=== PATIENT | male | born 1935 | race Caucasian/White ===

== ENCOUNTER 2020-04-03 13:00 | Outpatient (RCR) | payer MEDICARE, SELFPAY ==
--- NOTE | 2020-03-12 16:53 | ST.OPIE ---
Visit Care Team Role Provider Type Sam Patel MD Primary Care Provider Non-Staff Specialty: Medical Address: [address], [place], [address] Email: Mingo Torres MD Attending Provider Non-Staff Referring Provider Specialty: Neurology Address: [address], [place], [address] Email: Speech-Language Pathology Initial Evaluation EXECUTIVE ASSISTANT Voice Resonance Evaluation Start: 03/05/20 14:03 Freq: Status: Active Protocol: Document 03/05/20 15:27 AROLDO (Rec: 03/05/20 16:29 [email or web address]) Voice and Resonance Assessment Session Time Visit Start Time 15:30 Visit Stop Time 16:35 Total Visit Minutes 65 Visit Information Visit Number Initial Evaluation Plan of Care Dates 03/05/20 - 05/29/20 Insurance Information Medicare Next Note Type Next Note Type Treatment Note Referral Referring Physician Dr. Mingo Torres Reason for Referral LSVT-Loud therapy for Parkinson's disease Setting Setting Outpatient Care Patient History General Information The pt is an 84-yr-old male who was diagnosed with Parkinson's disease 2-3 yrs ago, with tremors occurring ~2 yrs before. 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 Friends have expressed difficulty hearing him in face -to-face conversation, as well as on the phone. The pt also reported occasional difficulty swallowing, experiencing closing up of his airway. Had experience that spicy foods and tannins in wine, for example, close up my airway. Also coughing with water and solids. Needs to drink small amounts at a time. Hearing Hearing Level Impaired Auditory History Left worse than right Vision Vision Status Not Impaired Comments Uses reading glasses [place] Langauge Language(s) Spoken in the Home Chinese Educational Status Education Level Master's degree Occupational Status Occupation Status Retired Previous Therapy Previous Speech-Language Therapy No Subjective Subjective The pt arrived on time and provided case history. He had questions about the LSVT-Loud and Big programs, which were addressed. - Laryngeal Performance Voice Handicap Index Function Subtotal 8 WFL Physical Subtotal 14 WFL/Mild Emotional Subtotal 8 Mild Total Score 30 Severity Mild (0-30) CAPE-V Overall Severity 65% Moderate-Severe Roughness 34% Mild-Moderate Breathiness 71% Severe Strain 27% Mild-Moderate Pitch 24% Mild (reduced range, mildly monotone) Loudness 53% Moderate (reduced) Normal Resonance? Yes Other Features Observed Significant reduction of breathiness and roughness w/ increased loudness Maximum Phonation Time MPT Norms: Women (15-25) Men (25-35) Loudness (50-60 dB); Speaking Rate: Oral Reading of Sentences (190 Words Per Minute); Oral Reading of Paragraphs (160-170 WPM); Speaking Rate in Conversation (150-250 WPM) Maximum Phonation Time 10.8 Maximum Phonation Time Adequate for Speech Jitter/Shimmer Norms: Jitter (Less than or equal to 1.040% - Frequency) Norms: Shimmer (Less than or equal to 3.810% - Amplitude) Jitter 0.13 WNL Shimmer 1.36 WNL Pitch [place] Pitch [place] WFL,Reduced Range Pitch [place] Comments 111-288 Hz Breath Support Speaks on Room Air Yes Voice Pitch Range Norms: Women (100-300 Hz) Men (70-250 Hz) Fundamental Frequency Norms: Women (Mean: 225 Hz; Range: 155-334 Hz) Men ( Mean: 128 Hz; Range: 85-196 Hz) Voice Pitch Normal Voice Loudness Moderately Soft/Quiet Voice Phonatory-based Quality Breathy,Harsh,Weak Fundamental Frequency 140 Hz Intensity Avg 65 dB in conversation ( Range: 59-71 dB) Paradoxical Vocal Fold Movement No Indications Resonance Nasal Resonance Normal Oral Resonance Normal Therapeutic Techniques Therapy Tactics Increase Loudness Findings Findings Moderate Impairment Observations The pt presents with moderate voice impairment secondary to Parkinson's disease and characterized by reduced vocal loudness and rough, breathy quality. Quality improved significantly with increased loudness, making this patient highly stimulable and appropriate for LSVT-Loud therapy. The pt also expressed occasional difficulty with swallowing, such as coughing with liquids and solids. He completed the EAT-10 questionnaire, scoring 5 points, which represents mild impairment. Based on research, it is anticipated that the pt 's swallow function will improve as a result of LSVT- Loud treatment. Will monitor swallow safety over the course of therapy. Prognosis Rehabilitation Potential Excellent - Recommendations Treatment Recommended Yes: LSVT-Loud Treatment Frequency/Duration 16 sessions in 4 wks Placement Recommendation Home Therapy Recommendations LSVT-Loud treatment targeting increased vocal loudness and improved speech intelligibility. Swallow function/safety may also be addressed in therapy. Short Term Goals 1. Pt will sustain vowel phonation for 15 sec at 75 dB or greater across 3 trials to increase breath support for speech and improve vocal quality/stability. 2. Pt perform pitch glide exercises at avg of 65 dB or greater with min cues to increase pitch range and vocal stability at various pitches. 3. Pt will read Functional Phrases at avg of 70 dB or greater across 10 trials to increase speech intelligibility and promote carryover of vocal loudness into his functional environment. 4. Pt will read words/phrases with avg of 70 dB or greater with 90% accuracy and min cues to increase speech intelligibility. 5. Pt will maintain loudness levels between 60-65 dB in off -the-cuff remarks between structured tasks with min cues to increase speech intelligibility and promote carryover of adequate loudness in spontaneous conversation. Tromper Goals 1. Pt will sustain vowel phonation for 20 sec at 75 dB or greater to increase/ maintain breath support for speech and vocal loudness. 2.Pt will produce prosodic features WFL in spontaneous conversation in 80% of opportunities to increase her ability to communicate ideas, opinions, and wants/needs. 3. Pt will produce vocal loudness in conversation WNL ( 65-75 dB) in 80% of opportunities to increase speech intelligibility in a variety of settings and with a variety of conversation partners. 4. Pt will report voice WFL as measured by VHI (total score of patient perceptual rating). 5. Pt will exhibit vocal quality WNL as measured by CAPE-V (clinician perceptual rating). Patient/Caregiver Education Patient/Family Education Described results of evaluation,Patient Understanding
--- NOTE | 2020-03-12 17:26 | ST.OPTN ---
Visit Care Team Role Provider Type Sam Patel MD Primary Care Provider Non-Staff Address: [address], [place], [address] Mingo Torres MD Attending Provider Non-Staff Referring Provider Address: [address], [place], [address] ORCHID GROWER Treatment Note ORCHID GROWER Treatment Note Start: 03/05/20 14:03 Freq: Status: Active Protocol: Document 03/11/20 17:45 AROLDO (Rec: 03/11/20 17:45 AROLDO [email or web address]) Speech Pathology Treatment Note Session Time Visit Start Time 15:30 Visit Stop Time 16:30 Total Visit Minutes 60 Visit Information Visit Number 2 Plan of Care Dates 03/05/20 - 05/29/20 General Information General Information The pt is an 84-yr-old male who was diagnosed with Parkinson's disease 2-3 yrs ago, with tremors occurring ~2 yrs before. 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 Friends have expressed difficulty hearing him in face -to-face conversation, as well as on the phone. The pt also reported occasional difficulty swallowing, experiencing closing up of his airway. Had experience that spicy foods and tannins in wine, for example, close up my airway. Also coughing with water and solids. Needs to drink small amounts at a time. Objective Short Term Goals 1. Pt will sustain vowel phonation for 15 sec at 75 dB or greater across 3 trials to increase breath support for speech and improve vocal quality/stability. 2. Pt perform pitch glide exercises at avg of 65 dB or greater with min cues to increase pitch range and vocal stability at various pitches. 3. Pt will read Functional Phrases at avg of 70 dB or greater across 10 trials to increase speech intelligibility and promote carryover of vocal loudness into his functional environment. 4. Pt will read words/phrases with avg of 70 dB or greater with 90% accuracy and min cues to increase speech intelligibility. 5. Pt will maintain loudness levels between 60-65 dB in off -the-cuff remarks between structured tasks with min cues to increase speech intelligibility and promote carryover of adequate loudness in spontaneous conversation. Hot Car Operator Goals 1. Pt will sustain vowel phonation for 20 sec at 75 dB or greater to increase/ maintain breath support for speech and vocal loudness. 2.Pt will produce prosodic features WFL in spontaneous conversation in 80% of opportunities to increase her ability to communicate ideas, opinions, and wants/needs. 3. Pt will produce vocal loudness in conversation WNL ( 65-75 dB) in 80% of opportunities to increase speech intelligibility in a variety of settings and with a variety of conversation partners. 4. Pt will report voice WFL as measured by VHI (total score of patient perceptual rating). 5. Pt will exhibit vocal quality WNL as measured by CAPE-V (clinician perceptual rating).
--- NOTE | 2020-03-12 17:31 | ST.OPTN ---
Visit Care Team Role Provider Type Sam Patel MD Primary Care Provider Non-Staff Address: [address], [place], [address] Mingo Torres MD Attending Provider Non-Staff Referring Provider Address: [address], [place], [address] RRTS Treatment Note RRTS Treatment Note Start: 03/05/20 14:03 Freq: Status: Active Protocol: Document 03/11/20 17:45 AROLDO (Rec: 03/11/20 17:45 AROLDO [email or web address]) Speech Pathology Treatment Note Session Time Visit Start Time 15:30 Visit Stop Time 16:30 Total Visit Minutes 60 Visit Information Visit Number 2 Plan of Care Dates 03/05/20 - 05/29/20 Insurance Information Medicare Setting Treatment Setting Outpatient Care Visit Type Note Type Treatment Note Next Note Type Next Note Type Treatment Note General Information General Information The pt is an 84-yr-old male who was diagnosed with Parkinson's disease 2-3 yrs ago, with tremors occurring ~2 yrs before. 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 Friends have expressed difficulty hearing him in face -to-face conversation, as well as on the phone. The pt also reported occasional difficulty swallowing, experiencing closing up of his airway. Had experience that spicy foods and tannins in wine, for example, close up my airway. Also coughing with water and solids. Needs to drink small amounts at a time. Subjective Observations/Patient Presentation Pt arrived on time. Completed home exercises this morning without difficulty. No new complaints. Chief Complaint(s) Voice Additional Areas of Concern Mild dysphagia symptoms Rehab Expectation/Goals: Patient Goals To be as good as I can be Patient Knowledge/Awareness of RRTS Role Excellent in Treatment Patient/Caregiver Compliance with Home Excellent Exercise Program Objective Short Term Goals 1. Pt will sustain vowel phonation for 15 sec at 75 dB or greater across 3 trials to increase breath support for speech and improve vocal quality/stability. 2. Pt perform pitch glide exercises at avg of 65 dB or greater with min cues to increase pitch range and vocal stability at various pitches. 3. Pt will read Functional Phrases at avg of 70 dB or greater across 10 trials to increase speech intelligibility and promote carryover of vocal loudness into his functional environment. 4. Pt will read words/phrases with avg of 70 dB or greater with 90% accuracy and min cues to increase speech intelligibility. 5. Pt will maintain loudness levels between 60-65 dB in off -the-cuff remarks between structured tasks with min cues to increase speech intelligibility and promote carryover of adequate loudness in spontaneous conversation. Admitting Representative Goals 1. Pt will sustain vowel phonation for 20 sec at 75 dB or greater to increase/ maintain breath support for speech and vocal loudness. 2.Pt will produce prosodic features WFL in spontaneous conversation in 80% of opportunities to increase her ability to communicate ideas, opinions, and wants/needs. 3. Pt will produce vocal loudness in conversation WNL ( 65-75 dB) in 80% of opportunities to increase speech intelligibility in a variety of settings and with a variety of conversation partners. 4. Pt will report voice WFL as measured by VHI (total score of patient perceptual rating). 5. Pt will exhibit vocal quality WNL as measured by CAPE-V (clinician perceptual rating). Treatment Activities The pt completed the following LSVT-Loud exercises: Max Phonation Time: 11.72 sec; Avg Loudness: 79.7 dB Highs & Lows: 121-374 Hz; Avg Loudness: Highs 79.2 dB, Lows 76.8 dB Functional Phrases: Avg Loudness 69.3 dB Words/Phrases: Avg Loudness 71 .5 dB Conversation: Avg Loudness 65. 7 dB, range = 63-67 dB, mod v/ v cues Skilled education and feedback was provided throughout, often with use of graphic representation of vocal loudness levels, which served also as beneficial biofeedback . Assessment Patient Response to Treatment Excellent Rehab Potential Excellent Impairments Identified Parkinson's Disease,Speech Intelligibility,Vocal Quality Additional Impairments Identified Mild dysphagia Progress Towards Goals Good Progress Assessment of Overall Progress Improving Assessment of Improvement The pt demonstrated good understanding of tx tasks and required little cuing during structured tasks to meet target loudness levels. Loudness decreased significantly during spontaneous speech. Pt was responsive to v/v prompts to increase loudness with limited carryover from one spontaneous exchange to another. Significant difference in vocal quality is perceived with loudness levels between less and greater than ~67 dB, with improved richness of voice and reduced breathiness at levels >67 dB. Reviewed with Patient Goals,Progress Being Made,Home Exercise Program Patient/Caregiver Understanding Excellent Plan Therapeutic Contents Client Education,Home Exercise Program,Intelligibility,Voice Training Additional Areas of Treatment Education related to swallow function/safety Provided Patient/Caregiver Instruction Home Exercise Program,Plan of Care,Questions/Concerns,Other Therapy Recommendations Continue with Current Program
--- NOTE | 2020-03-12 17:37 | ST.OPTN ---
Visit Care Team Role Provider Type Sam Patel MD Primary Care Provider Non-Staff Address: [address], [place], [address] Mingo Torres MD Attending Provider Non-Staff Referring Provider Address: [address], [place], [address] SHIPPING ROOM SUPERVISOR Treatment Note SHIPPING ROOM SUPERVISOR Treatment Note Start: 03/05/20 14:03 Freq: Status: Active Protocol: Document 03/12/20 17:32 AROLDO (Rec: 03/12/20 17:37 AROLDO [email or web address]) Speech Pathology Treatment Note Session Time Visit Start Time 15:30 Visit Stop Time 16:30 Total Visit Minutes 60 Visit Information Visit Number 3 Plan of Care Dates 03/05/20 - 05/29/20 Insurance Information Medicare Setting Treatment Setting Outpatient Care Visit Type Note Type Treatment Note Next Note Type Next Note Type Treatment Note General Information General Information The pt is an 84-yr-old male who was diagnosed with Parkinson's disease 2-3 yrs ago, with tremors occurring ~2 yrs before. 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 Friends have expressed difficulty hearing him in face -to-face conversation, as well as on the phone. The pt also reported occasional difficulty swallowing, experiencing closing up of his airway. Had experience that spicy foods and tannins in wine, for example, close up my airway. Also coughing with water and solids. Needs to drink small amounts at a time. Subjective Observations/Patient Presentation Pt arrived on time. Completed home exercises this morning with difficulty maintaining clear voice with lower pitches . No other complaints. Chief Complaint(s) Voice Additional Areas of Concern Mild dysphagia symptoms Rehab Expectation/Goals: Patient Goals To be as good as I can be Patient Knowledge/Awareness of SHIPPING ROOM SUPERVISOR Role Excellent in Treatment Patient/Caregiver Compliance with Home Excellent Exercise Program Objective Short Term Goals 1. Pt will sustain vowel phonation for 15 sec at 75 dB or greater across 3 trials to increase breath support for speech and improve vocal quality/stability. 2. Pt perform pitch glide exercises at avg of 65 dB or greater with min cues to increase pitch range and vocal stability at various pitches. 3. Pt will read Functional Phrases at avg of 70 dB or greater across 10 trials to increase speech intelligibility and promote carryover of vocal loudness into his functional environment. 4. Pt will read words/phrases with avg of 70 dB or greater with 90% accuracy and min cues to increase speech intelligibility. 5. Pt will maintain loudness levels between 60-65 dB in off -the-cuff remarks between structured tasks with min cues to increase speech intelligibility and promote carryover of adequate loudness in spontaneous conversation. Stone Setter Apprentice Goals 1. Pt will sustain vowel phonation for 20 sec at 75 dB or greater to increase/ maintain breath support for speech and vocal loudness. 2.Pt will produce prosodic features WFL in spontaneous conversation in 80% of opportunities to increase her ability to communicate ideas, opinions, and wants/needs. 3. Pt will produce vocal loudness in conversation WNL ( 65-75 dB) in 80% of opportunities to increase speech intelligibility in a variety of settings and with a variety of conversation partners. 4. Pt will report voice WFL as measured by VHI (total score of patient perceptual rating). 5. Pt will exhibit vocal quality WNL as measured by CAPE-V (clinician perceptual rating). Treatment Activities The pt completed the following LSVT-Loud exercises: Max Phonation Time: 13.6 sec; Avg Loudness: 77.9 dB Highs & Lows: 87-375 Hz; Avg Loudness: Highs 77.4 dB, Lows 75.8 dB Functional Phrases: Avg Loudness 70 dB Words/Phrases: Avg Loudness 71 dB Conversation: Avg Loudness 66. 5 dB, range = 65-68 dB, mod- max v/v cues Skilled education and feedback was provided throughout, often with use of graphic representation of vocal loudness levels, which served also as beneficial biofeedback . Playback of voice recordings including reading of functional phrases and spontaneous conversation was provided. The pt expressed surprise at the difference in intelligibility and vocal quality. He described his voice during reading task as the voice I think I have and have always had and his voice in conversation as someone I don't know. He was encouraged by feedback in relation to goals and POC. Assessment Patient Response to Treatment Excellent Rehab Potential Excellent Impairments Identified Parkinson's Disease,Speech Intelligibility,Vocal Quality Additional Impairments Identified Mild dysphagia Progress Towards Goals Good Progress Assessment of Overall Progress Improving Assessment of Improvement Mildly improved MPT and vocal loudness in conversation. The pt expressed being inspired by audio playback of his voice. He is following through on HEP tasks well, including carryover assignments. Reviewed with Patient Goals,Progress Being Made,Home Exercise Program Patient/Caregiver Understanding Excellent Plan Frequency of Treatment Four Times a Week Length of Session 60 Minutes Therapeutic Contents Client Education,Home Exercise Program,Intelligibility,Voice Training Additional Areas of Treatment Education related to swallow function/safety Provided Patient/Caregiver Instruction Home Exercise Program,Plan of Care,Questions/Concerns,Other Therapy Recommendations Continue with Current Program
--- NOTE | 2020-03-13 14:17 | ST.OPTN ---
Visit Care Team Role Provider Type Sam Patel MD Primary Care Provider Non-Staff Address: [address], [place], [address] Mingo Torres MD Attending Provider Non-Staff Referring Provider Address: [address], [place], [address] CRM MARKETING EXECUTIVE Treatment Note CRM MARKETING EXECUTIVE Treatment Note Start: 03/05/20 14:03 Freq: Status: Active Protocol: Document 03/13/20 14:08 AROLDO (Rec: 03/13/20 14:17 AROLDO [email or web address]) Speech Pathology Treatment Note Session Time Visit Start Time 13:00 Visit Stop Time 14:00 Total Visit Minutes 60 Visit Information Visit Number 4 Plan of Care Dates 03/05/20 - 05/29/20 Insurance Information Medicare Setting Treatment Setting Outpatient Care Visit Type Note Type Treatment Note Next Note Type Next Note Type Treatment Note General Information General Information The pt is an 84-yr-old male who was diagnosed with Parkinson's disease 2-3 yrs ago, with tremors occurring ~2 yrs before. 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 Friends have expressed difficulty hearing him in face -to-face conversation, as well as on the phone. The pt also reported occasional difficulty swallowing, experiencing closing up of his airway. Had experience that spicy foods and tannins in wine, for example, close up my airway. Also coughing with water and solids. Needs to drink small amounts at a time. Subjective Observations/Patient Presentation Pt arrived on time. Completed home exercises this morning with continued difficulty maintaining clear voice with lower pitches. No other complaints. Reported completing carryover tasks. Chief Complaint(s) Voice Additional Areas of Concern Mild dysphagia symptoms Rehab Expectation/Goals: Patient Goals To be as good as I can be Patient Knowledge/Awareness of CRM MARKETING EXECUTIVE Role Excellent in Treatment Patient/Caregiver Compliance with Home Excellent Exercise Program Objective Short Term Goals 1. Pt will sustain vowel phonation for 15 sec at 75 dB or greater across 3 trials to increase breath support for speech and improve vocal quality/stability. 2. Pt perform pitch glide exercises at avg of 65 dB or greater with min cues to increase pitch range and vocal stability at various pitches. 3. Pt will read Functional Phrases at avg of 70 dB or greater across 10 trials to increase speech intelligibility and promote carryover of vocal loudness into his functional environment. 4. Pt will read words/phrases with avg of 70 dB or greater with 90% accuracy and min cues to increase speech intelligibility. 5. Pt will maintain loudness levels between 60-65 dB in off -the-cuff remarks between structured tasks with min cues to increase speech intelligibility and promote carryover of adequate loudness in spontaneous conversation. Technical Report Writer Goals 1. Pt will sustain vowel phonation for 20 sec at 75 dB or greater to increase/ maintain breath support for speech and vocal loudness. 2.Pt will produce prosodic features WFL in spontaneous conversation in 80% of opportunities to increase her ability to communicate ideas, opinions, and wants/needs. 3. Pt will produce vocal loudness in conversation WNL ( 65-75 dB) in 80% of opportunities to increase speech intelligibility in a variety of settings and with a variety of conversation partners. 4. Pt will report voice WFL as measured by VHI (total score of patient perceptual rating). 5. Pt will exhibit vocal quality WNL as measured by CAPE-V (clinician perceptual rating). Treatment Activities The pt completed the following LSVT-Loud exercises: Max Phonation Time: 11.56 sec; Avg Loudness: 81.8 dB Highs & Lows: 112-379 Hz; Avg Loudness: Highs 83.7 dB, Lows 73.5 dB Functional Phrases: Avg Loudness 71.7 dB Words/Phrases: Reading phrases as written with avg loudness 71.7 dB; Cognitive task of reordering and reading lists of 3-4 items in correct sequence, with avg loudness 73 .3 dB Conversation: Avg Loudness 68. 8 dB, range = 66-73 dB, min v/ v cues Skilled education and feedback was provided throughout, often with use of graphic representation of vocal loudness levels, which served also as beneficial biofeedback . Pt demonstrated increased loudness with [id number] remarks with mod verbal prompts initially provided, fading to min visual cues. Assessment Patient Response to Treatment Excellent Rehab Potential Excellent Impairments Identified Parkinson's Disease,Speech Intelligibility,Vocal Quality Additional Impairments Identified Mild dysphagia Progress Towards Goals Excellent Progress,Good Progress Assessment of Overall Progress Improving Assessment of Improvement Generally improved loudness demonstrated across most tasks . The pt demonstrated good improvement in maintaining loudness levels in spontaneous conversation, including off- the-cuff remarks. He commented that he often was doing so without thinking about it, demonstrating initial stages of habitualization of target levels. The pt was encouraged about this. Reviewed with Patient Goals,Progress Being Made,Home Exercise Program Patient/Caregiver Understanding Excellent Plan Frequency of Treatment Four Times a Week Length of Session 60 Minutes Therapeutic Contents Client Education,Home Exercise Program,Intelligibility,Voice Training Additional Areas of Treatment Education related to swallow function/safety Provided Patient/Caregiver Instruction Home Exercise Program,Plan of Care,Questions/Concerns,Other Therapy Recommendations Continue with Current Program
--- NOTE | 2020-03-17 16:52 | ST.OPTN ---
Visit Care Team Role Provider Type Sam Patel MD Primary Care Provider Non-Staff Address: [address], [place], [address] Mingo Torres MD Attending Provider Non-Staff Referring Provider Address: [address], [place], [address] [facility] Treatment Note [facility] Treatment Note Start: 03/05/20 14:03 Freq: Status: Active Protocol: Document 03/17/20 16:43 AROLDO (Rec: 03/17/20 16:52 AROLDO [id number]) Speech Pathology Treatment Note Session Time Visit Start Time 15:30 Visit Stop Time 16:30 Total Visit Minutes 60 Visit Information Visit Number 5 Plan of Care Dates 03/05/20 - 05/29/20 Insurance Information Medicare Setting Treatment Setting Outpatient Care Visit Type Note Type Treatment Note Next Note Type Next Note Type Treatment Note General Information General Information The pt is an 84-yr-old male who was diagnosed with Parkinson's disease 2-3 yrs ago, with tremors occurring ~2 yrs before. 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 Friends have expressed difficulty hearing him in face -to-face conversation, as well as on the phone. The pt also reported occasional difficulty swallowing, experiencing closing up of his airway. Had experience that spicy foods and tannins in wine, for example, close up my airway. Also coughing with water and solids. Needs to drink small amounts at a time. Subjective Observations/Patient Presentation Pt arrived on time. Completed home exercises this morning with continued difficulty maintaining clear voice with lower pitches. No other complaints. Reported communicating effectively with visitors over weekend. Chief Complaint(s) Voice Additional Areas of Concern Mild dysphagia symptoms Rehab Expectation/Goals: Patient Goals To be as good as I can be Patient Knowledge/Awareness of [facility] Role Excellent in Treatment Patient/Caregiver Compliance with Home Excellent Exercise Program Objective Short Term Goals 1. Pt will sustain vowel phonation for 15 sec at 75 dB or greater across 3 trials to increase breath support for speech and improve vocal quality/stability. 2. Pt perform pitch glide exercises at avg of 65 dB or greater with min cues to increase pitch range and vocal stability at various pitches. 3. Pt will read Functional Phrases at avg of 70 dB or greater across 10 trials to increase speech intelligibility and promote carryover of vocal loudness into his functional environment. 4. Pt will read words/phrases with avg of 70 dB or greater with 90% accuracy and min cues to increase speech intelligibility. 5. Pt will maintain loudness levels between 60-65 dB in off -the-cuff remarks between structured tasks with min cues to increase speech intelligibility and promote carryover of adequate loudness in spontaneous conversation. 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 Pt will sustain vowel phonation for 20 sec at 75 dB or greater to increase/ maintain breath support for speech and vocal loudness. 2.Pt will produce prosodic features WFL in spontaneous conversation in 80% of opportunities to increase her ability to communicate ideas, opinions, and wants/needs. 3. Pt will produce vocal loudness in conversation WNL ( 65-75 dB) in 80% of opportunities to increase speech intelligibility in a variety of settings and with a variety of conversation partners. 4. Pt will report voice WFL as measured by VHI (total score of patient perceptual rating). 5. Pt will exhibit vocal quality WNL as measured by CAPE-V (clinician perceptual rating). Treatment Activities The pt completed the following LSVT-Loud exercises: Max Phonation Time: 13.5 sec; Avg Loudness: 77.9 dB Highs & Lows: 105-332 Hz; Avg Loudness: Highs 78 dB, Lows 72 dB Functional Phrases: Avg Loudness 72 dB Sentences: Pt completed reading/cognitive speaking task by completing analogies ( avg 67.5 dB) and reading proverbs and explaining their meanings (avg 71 dB). Occasional replay of voice recording was provided for feedback. Pt correctly observed mild decline in vocal loudness in spontaneous speech vs reading text. Feedback provided RE normalcy of increased loudness with reading (performance voice) vs natural speech. Minimal difference between loudness in the tasks was observed, demonstrating excellent self- monitoring. Conversation: Avg Loudness 64. 5 dB, range = 64-65 dB, min v/ v cues Skilled education and feedback was provided throughout, often with use of graphic representation of vocal loudness levels, which served also as beneficial biofeedback . Pt was required and was responsive to v/v prompts to maintain target loudness with [id number] remarks. Assessment Patient Response to Treatment Excellent Rehab Potential Excellent Impairments Identified Parkinson's Disease,Speech Intelligibility,Vocal Quality Additional Impairments Identified Mild dysphagia Progress Towards Goals Excellent Progress,Good Progress Assessment of Overall Progress Improving Assessment of Improvement Mild decrease in average loudness across several tasks and conversation today. However, the pt was responsive to v/v prompts to maintain loudness with spontaneous speech, both in structured tasks and conversation. He did exhibit excellent self- monitoring while completing proverb reading/explaining task. Improved pitch range observed with increased consistency in producing lower pitches with good voicing. Reviewed with Patient Goals,Progress Being Made,Home Exercise Program Patient/Caregiver Understanding Excellent Plan Frequency of Treatment Four Times a Week Length of Session 60 Minutes Therapeutic Contents Client Education,Home Exercise Program,Intelligibility,Voice Training Additional Areas of Treatment Education related to swallow function/safety Provided Patient/Caregiver Instruction Home Exercise Program,Plan of Care,Questions/Concerns,Other Therapy Recommendations Continue with Current Program
--- NOTE | 2020-03-18 16:59 | ST.OPTN ---
Visit Care Team Role Provider Type Sam Patel MD Primary Care Provider Non-Staff Address: [address], [place], [address] Mingo Torres MD Attending Provider Non-Staff Referring Provider Address: [address], [place], [address] BIT [facility]APPER Treatment Note [facility]PER Treatment Note Start: 03/05/20 14:03 Freq: Status: Active Protocol: Document 03/18/20 16:52 AROLDO (Rec: 03/18/20 16:59 AROLDO [email or web address]) Speech Pathology Treatment Note Session Time Visit Start Time 15:30 Visit Stop Time 16:30 Total Visit Minutes 60 Visit Information Visit Number 6 Plan of Care Dates 03/05/20 - 05/29/20 Insurance Information Medicare Setting Treatment Setting Outpatient Care Visit Type Note Type Treatment Note Next Note Type Next Note Type Treatment Note General Information General Information The pt is an 84-yr-old male who was diagnosed with Parkinson's disease 2-3 yrs ago, with tremors occurring ~2 yrs before. 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 Friends have expressed difficulty hearing him in face -to-face conversation, as well as on the phone. The pt also reported occasional difficulty swallowing, experiencing closing up of his airway. Had experience that spicy foods and tannins in wine, for example, close up my airway. Also coughing with water and solids. Needs to drink small amounts at a time. Subjective Observations/Patient Presentation Pt arrived on time. Completed home exercises this morning with improved ability to maintain clear voice with lower pitches. No new complaints. Chief Complaint(s) Voice Additional Areas of Concern Mild dysphagia symptoms Rehab Expectation/Goals: Patient Goals To be as good as I can be Patient Knowledge/Awareness of BIT TAPPER Role Excellent in Treatment Patient/Caregiver Compliance with Home Excellent Exercise Program Objective Short Term Goals 1. Pt will sustain vowel phonation for 15 sec at 75 dB or greater across 3 trials to increase breath support for speech and improve vocal quality/stability. 2. Pt perform pitch glide exercises at avg of 65 dB or greater with min cues to increase pitch range and vocal stability at various pitches. 3. Pt will read Functional Phrases at avg of 70 dB or greater across 10 trials to increase speech intelligibility and promote carryover of vocal loudness into his functional environment. 4. Pt will read words/phrases with avg of 70 dB or greater with 90% accuracy and min cues to increase speech intelligibility. 5. Pt will maintain loudness levels between 60-65 dB in off -the-cuff remarks between structured tasks with min cues to increase speech intelligibility and promote carryover of adequate loudness in spontaneous conversation. Care Home Goals 1. Pt will sustain vowel phonation for 20 sec at 75 dB or greater to increase/ maintain breath support for speech and vocal loudness. 2.Pt will produce prosodic features WFL in spontaneous conversation in 80% of opportunities to increase her ability to communicate ideas, opinions, and wants/needs. 3. Pt will produce vocal loudness in conversation WNL ( 65-75 dB) in 80% of opportunities to increase speech intelligibility in a variety of settings and with a variety of conversation partners. 4. Pt will report voice WFL as measured by VHI (total score of patient perceptual rating). 5. Pt will exhibit vocal quality WNL as measured by CAPE-V (clinician perceptual rating). Treatment Activities The pt completed the following LSVT-Loud exercises: Max Phonation Time: 15.3 sec; Avg Loudness: 81.8 dB Highs & Lows: 108-341 Hz; Avg Loudness: Highs 79.5 dB, Lows 73.5 dB Functional Phrases: Avg Loudness 71 dB Sentences: Pt completed reading/cognitive speaking task by reading proverbs and explaining their meanings with avg 71 dB. Conversation: Avg Loudness 66. 4 dB, range = 64-73 dB, mod v/ v cues Skilled education and feedback was provided throughout, often with use of graphic representation of vocal loudness levels, which served also as beneficial biofeedback . Pt was required and was responsive to v/v prompts to maintain target loudness with [id number] remarks. Assessment Patient Response to Treatment Excellent Rehab Potential Excellent Impairments Identified Parkinson's Disease,Speech Intelligibility,Vocal Quality Additional Impairments Identified Mild dysphagia Progress Towards Goals Excellent Progress,Good Progress Assessment of Overall Progress Improving Assessment of Improvement Pt demonstrates slow but steady increases in average loudness levels across most tasks and increasing long duration of sustained phonation. Pitch range is expanding as well, with the pt maintaining clear vocal quality at lower pitch levels. Making excellent progress toward goals. No evidence of vocal fatigue even with extensive (10 min) of conversation in which the pt did most of the talking. He reports feeling that he is making progress and being encouraged by that. Reviewed with Patient Goals,Progress Being Made,Home Exercise Program Patient/Caregiver Understanding Excellent Plan Frequency of Treatment Four Times a Week Length of Session 60 Minutes Therapeutic Contents Client Education,Home Exercise Program,Intelligibility,Voice Training Additional Areas of Treatment Education related to swallow function/safety Provided Patient/Caregiver Instruction Home Exercise Program,Plan of Care,Questions/Concerns,Other Therapy Recommendations Continue with Current Program
--- NOTE | 2020-03-19 17:17 | ST.OPTN ---
Visit Care Team Role Provider Type Sam Patel MD Primary Care Provider Non-Staff Address: [address], [place], [address] Mingo Torres MD Attending Provider Non-Staff Referring Provider Address: [address], [place], [address] FENCE POST DRIVER Treatment Note FENCE POST DRIVER Treatment Note Start: 03/05/20 14:03 Freq: Status: Active Protocol: Document 03/19/20 17:15 AROLDO (Rec: 03/19/20 17:17 AROLDO [id number]) Speech Pathology Treatment Note Session Time Visit Start Time 15:30 Visit Stop Time 16:32 Total Visit Minutes 62 Visit Information Visit Number 7 Plan of Care Dates 03/05/20 - 05/29/20 Insurance Information Medicare Setting Treatment Setting Outpatient Care Visit Type Note Type Treatment Note Next Note Type Next Note Type Treatment Note General Information General Information The pt is an 84-yr-old male who was diagnosed with Parkinson's disease 2-3 yrs ago, with tremors occurring ~2 yrs before. 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 Friends have expressed difficulty hearing him in face -to-face conversation, as well as on the phone. The pt also reported occasional difficulty swallowing, experiencing closing up of his airway. Had experience that spicy foods and tannins in wine, for example, close up my airway. Also coughing with water and solids. Needs to drink small amounts at a time. Subjective Observations/Patient Presentation Pt arrived on time. Completed home exercises this morning with improved ability to maintain clear voice with lower pitches. No new complaints. Chief Complaint(s) Voice Additional Areas of Concern Mild dysphagia symptoms Rehab Expectation/Goals: Patient Goals To be as good as I can be Patient Knowledge/Awareness of FENCE POST DRIVER Role Excellent in Treatment Patient/Caregiver Compliance with Home Excellent Exercise Program Objective Short Term Goals 1. Pt will sustain vowel phonation for 15 sec at 75 dB or greater across 3 trials to increase breath support for speech and improve vocal quality/stability. 2. Pt perform pitch glide exercises at avg of 65 dB or greater with min cues to increase pitch range and vocal stability at various pitches. 3. Pt will read Functional Phrases at avg of 70 dB or greater across 10 trials to increase speech intelligibility and promote carryover of vocal loudness into his functional environment. 4. Pt will read words/phrases with avg of 70 dB or greater with 90% accuracy and min cues to increase speech intelligibility. 5. Pt will maintain loudness levels between 60-65 dB in off -the-cuff remarks between structured tasks with min cues to increase speech intelligibility and promote carryover of adequate loudness in spontaneous conversation. Retirement Goals 1. Pt will sustain vowel phonation for 20 sec at 75 dB or greater to increase/ maintain breath support for speech and vocal loudness. 2.Pt will produce prosodic features WFL in spontaneous conversation in 80% of opportunities to increase her ability to communicate ideas, opinions, and wants/needs. 3. Pt will produce vocal loudness in conversation WNL ( 65-75 dB) in 80% of opportunities to increase speech intelligibility in a variety of settings and with a variety of conversation partners. 4. Pt will report voice WFL as measured by VHI (total score of patient perceptual rating). 5. Pt will exhibit vocal quality WNL as measured by CAPE-V (clinician perceptual rating). Treatment Activities The pt completed the following LSVT-Loud exercises: Max Phonation Time: 14 sec; Avg Loudness: 78.5 dB Highs & Lows: 107-364 Hz; Avg Loudness: Highs 76.9 dB, Lows 71.8 dB Functional Phrases: Avg Loudness 71.4 dB Sentences: P read lengthy sentences with avg 70 dB Conversation: Avg Loudness 67. 6 dB, range = 66-71 dB, mod v/ v cues Skilled education and feedback was provided throughout, often with use of graphic representation of vocal loudness levels, which served also as beneficial biofeedback . Pt was required and was responsive to v/v prompts to maintain target loudness with [id number]-[id number]-styr remarks. Assessment Patient Response to Treatment Excellent Rehab Potential Excellent Impairments Identified Parkinson's Disease,Speech Intelligibility,Vocal Quality Additional Impairments Identified Mild dysphagia Progress Towards Goals Excellent Progress,Good Progress Assessment of Overall Progress Improving Assessment of Improvement Pt continues to make good progress toward goals. Reviewed with Patient Goals,Progress Being Made,Home Exercise Program Patient/Caregiver Understanding Excellent Plan Frequency of Treatment Four Times a Week Length of Session 60 Minutes Therapeutic Contents Client Education,Home Exercise Program,Intelligibility,Voice Training Additional Areas of Treatment Education related to swallow function/safety Provided Patient/Caregiver Instruction Home Exercise Program,Plan of Care,Questions/Concerns,Other Therapy Recommendations Continue with Current Program
--- NOTE | 2020-03-20 14:23 | ST.OPTN ---
Visit Care Team Role Provider Type Sam Paetl MD Primary Care Provider Non-Staff Address: [address], [place], [address] Mingo Torres MD Attending Provider Non-Staff Referring Provider Address: [address], [place], [address] CONTINUOUS WASHER OPERATOR Treatment Note CONTINUOUS WASHER OPERATOR Treatment Note Start: 03/05/20 14:03 Freq: Status: Active Protocol: Document 03/20/20 14:03 AROLDO (Rec: 03/20/20 14:23 AROLDO [id number]) Speech Pathology Treatment Note Session Time Visit Start Time 13:00 Visit Stop Time 14:00 Total Visit Minutes 60 Visit Information Visit Number 8 Plan of Care Dates 03/05/20 - 05/29/20 Insurance Information Medicare Setting Treatment Setting Outpatient Care Visit Type Note Type Treatment Note Next Note Type Next Note Type Treatment Note General Information General Information The pt is an 84-yr-old male who was diagnosed with Parkinson's disease 2-3 yrs ago, with tremors occurring ~2 yrs before. 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 Friends have expressed difficulty hearing him in face -to-face conversation, as well as on the phone. The pt also reported occasional difficulty swallowing, experiencing closing up of his airway. Had experience that spicy foods and tannins in wine, for example, close up my airway. Also coughing with water and solids. Needs to drink small amounts at a time. Subjective Observations/Patient Presentation Pt arrived on time. Completed home exercises this morning without difficulty. No new complaints. Chief Complaint(s) Voice Additional Areas of Concern Mild dysphagia symptoms Rehab Expectation/Goals: Patient Goals To be as good as I can be Patient Knowledge/Awareness of CONTINUOUS WASHER OPERATOR Role Excellent in Treatment Patient/Caregiver Compliance with Home Excellent Exercise Program Objective Short Term Goals 1. Pt will sustain vowel phonation for 15 sec at 75 dB or greater across 3 trials to increase breath support for speech and improve vocal quality/stability. 2. Pt perform pitch glide exercises at avg of 65 dB or greater with min cues to increase pitch range and vocal stability at various pitches. 3. Pt will read Functional Phrases at avg of 70 dB or greater across 10 trials to increase speech intelligibility and promote carryover of vocal loudness into his functional environment. 4. Pt will read words/phrases with avg of 70 dB or greater with 90% accuracy and min cues to increase speech intelligibility. 5. Pt will maintain loudness levels between 60-65 dB in off -the-cuff remarks between structured tasks with min cues to increase speech intelligibility and promote carryover of adequate loudness in spontaneous conversation. Direct Sales Professional Goals 1. Pt will sustain vowel phonation for 20 sec at 75 dB or greater to increase/ maintain breath support for speech and vocal loudness. 2.Pt will produce prosodic features WFL in spontaneous conversation in 80% of opportunities to increase her ability to communicate ideas, opinions, and wants/needs. 3. Pt will produce vocal loudness in conversation WNL ( 65-75 dB) in 80% of opportunities to increase speech intelligibility in a variety of settings and with a variety of conversation partners. 4. Pt will report voice WFL as measured by VHI (total score of patient perceptual rating). 5. Pt will exhibit vocal quality WNL as measured by CAPE-V (clinician perceptual rating). Treatment Activities The pt completed the following LSVT-Loud exercises: Max Phonation Time: 13.5 sec; Avg Loudness: 81.2 dB Highs & Lows: 108-385 Hz; Avg Loudness: Highs 78.6 dB, Lows 73 dB Functional Phrases: Avg Loudness 74 dB Sentences: Pt produced sentences of moderate length in which sentences were started and the pt completed them describing how objects are similar/different and consistent characteristics of given objects, requiring expressive language processing while maintaining vocal loudness. Avg loudness 70.2 dB Conversation: Avg Loudness 66. 9 dB, range = 64-71 dB, mod v/ v cues Skilled education and feedback was provided throughout, often with use of graphic representation of vocal loudness levels, which served also as beneficial biofeedback . Pt was required and was responsive to v/v prompts to maintain target loudness with [id number] remarks. Assessment Patient Response to Treatment Excellent Rehab Potential Excellent Impairments Identified Parkinson's Disease,Speech Intelligibility,Vocal Quality Additional Impairments Identified Mild dysphagia Progress Towards Goals Excellent Progress,Good Progress Assessment of Overall Progress Improving Assessment of Improvement Pt continues to make good progress toward goals. Vocal fatigue observed by both pt and CONTINUOUS WASHER OPERATOR toward end of session (~50 into session). In structured tasks, the pt exhibited increased loudness as compared to previous session; mildly reduced conversational loudness, however. Reviewed with Patient Goals,Progress Being Made,Home Exercise Program Patient/Caregiver Understanding Excellent Plan Frequency of Treatment Four Times a Week Length of Session 60 Minutes Therapeutic Contents Client Education,Home Exercise Program,Intelligibility,Voice Training Additional Areas of Treatment Education related to swallow function/safety Provided Patient/Caregiver Instruction Home Exercise Program,Plan of Care,Questions/Concerns,Other Therapy Recommendations Continue with Current Program
--- NOTE | 2020-03-24 17:26 | ST.OPTN ---
Visit Care Team Role Provider Type Sam Patel MD Primary Care Provider Non-Staff Address: [address], [place], [address] Mingo Torres MD Attending Provider Non-Staff Referring Provider Address: [address], [place], [address] SALES SUPERVISOR Treatment Note SALES SUPERVISOR Treatment Note Start: 03/05/20 14:03 Freq: Status: Active Protocol: Document 03/24/20 17:23 AROLDO (Rec: 03/24/20 17:26 AROLDO [id number]) Speech Pathology Treatment Note Session Time Visit Start Time 15:30 Visit Stop Time 16:30 Total Visit Minutes 60 Visit Information Visit Number 9 Plan of Care Dates 03/05/20 - 05/29/20 Insurance Information Medicare Setting Treatment Setting Outpatient Care Visit Type Note Type Treatment Note Next Note Type Next Note Type Treatment Note General Information General Information The pt is an 84-yr-old male who was diagnosed with Parkinson's disease 2-3 yrs ago, with tremors occurring ~2 yrs before. 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 Friends have expressed difficulty hearing him in face -to-face conversation, as well as on the phone. The pt also reported occasional difficulty swallowing, experiencing closing up of his airway. Had experience that spicy foods and tannins in wine, for example, close up my airway. Also coughing with water and solids. Needs to drink small amounts at a time. Subjective Observations/Patient Presentation Pt arrived on time. Completed home exercises this morning without difficulty. No new complaints. Chief Complaint(s) Voice Additional Areas of Concern Mild dysphagia symptoms Rehab Expectation/Goals: Patient Goals To be as good as I can be Patient Knowledge/Awareness of SALES SUPERVISOR Role Excellent in Treatment Patient/Caregiver Compliance with Home Excellent Exercise Program Objective Short Term Goals 1. Pt will sustain vowel phonation for 15 sec at 75 dB or greater across 3 trials to increase breath support for speech and improve vocal quality/stability. 2. Pt perform pitch glide exercises at avg of 65 dB or greater with min cues to increase pitch range and vocal stability at various pitches. 3. Pt will read Functional Phrases at avg of 70 dB or greater across 10 trials to increase speech intelligibility and promote carryover of vocal loudness into his functional environment. 4. Pt will read words/phrases with avg of 70 dB or greater with 90% accuracy and min cues to increase speech intelligibility. GOAL MET Upgrade goal to paragraphs. 5. Pt will maintain loudness levels between 60-65 dB in off -the-cuff remarks between structured tasks with min cues to increase speech intelligibility and promote carryover of adequate loudness in spontaneous conversation. Long-Term Goals 1. Pt will sustain vowel phonation for 20 sec at 75 dB or greater to increase/ maintain breath support for speech and vocal loudness. 2.Pt will produce prosodic features WFL in spontaneous conversation in 80% of opportunities to increase her ability to communicate ideas, opinions, and wants/needs. 3. Pt will produce vocal loudness in conversation WNL ( 65-75 dB) in 80% of opportunities to increase speech intelligibility in a variety of settings and with a variety of conversation partners. 4. Pt will report voice WFL as measured by VHI (total score of patient perceptual rating). 5. Pt will exhibit vocal quality WNL as measured by CAPE-V (clinician perceptual rating). Treatment Activities The pt completed the following LSVT-Loud exercises: Max Phonation Time: 14.7 sec; Avg Loudness: 79.9 dB Highs & Lows: 104-370 Hz; Avg Loudness: Highs 76.3 dB, Lows 68.7 dB Functional Phrases: Avg Loudness 71 dB Paragraphs: Pt produced paragraphs of short to moderate length with avg loudness 71 dB Conversation: Avg Loudness 69 dB, range = 67-71 dB, mod v/v cues Skilled education and feedback was provided throughout, often with use of graphic representation of vocal loudness levels, which served also as beneficial biofeedback . Pt was required and was responsive to v/v prompts to maintain target loudness with [id number]-uher remarks. Assessment Patient Response to Treatment Excellent Rehab Potential Excellent Impairments Identified Parkinson's Disease,Speech Intelligibility,Vocal Quality Additional Impairments Identified Mild dysphagia Progress Towards Goals Excellent Progress,Good Progress Assessment of Overall Progress Improving Assessment of Improvement Pt continues to make good progress toward goals. Vocal fatigue observed by both pt and SALES SUPERVISOR toward end of session (~50 into session). In structured tasks, the pt exhibited increased loudness as compared to previous session; mildly reduced conversational loudness, however. Reviewed with Patient Goals,Progress Being Made,Home Exercise Program Patient/Caregiver Understanding Excellent Plan Frequency of Treatment Four Times a Week Length of Session 60 Minutes Therapeutic Contents Client Education,Home Exercise Program,Intelligibility,Voice Training Additional Areas of Treatment Education related to swallow function/safety Provided Patient/Caregiver Instruction Home Exercise Program,Plan of Care,Questions/Concerns,Other Therapy Recommendations Continue with Current Program
--- NOTE | 2020-03-25 17:11 | ST.OPTN ---
Visit Care Team Role Provider Type Sam Patel MD Primary Care Provider Non-Staff Address: [address], [place], [address] Mingo Torres MD Attending Provider Non-Staff Referring Provider Address: [address], [place], [address] PAPER WRAPPING MACHINE OPERATOR Treatment Note PAPER WRAPPING MACHINE OPERATOR Treatment Note Start: 03/05/20 14:03 Freq: Status: Active Protocol: Document 03/25/20 16:54 AROLDO (Rec: 03/25/20 17:11 AROLDO [email or web address]) Speech Pathology Treatment Note Session Time Visit Start Time 15:30 Visit Stop Time 16:30 Total Visit Minutes 60 Visit Information Visit Number 10 Plan of Care Dates 03/05/20 - 05/29/20 Insurance Information Medicare Setting Treatment Setting Outpatient Care Visit Type Note Type Progress Note Next Note Type Next Note Type Treatment Note General Information General Information The pt is an 84-yr-old male who was diagnosed with Parkinson's disease 2-3 yrs ago, with tremors occurring ~2 yrs before. 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 Friends have expressed difficulty hearing him in face -to-face conversation, as well as on the phone. The pt also reported occasional difficulty swallowing, experiencing closing up of his airway. Had experience that spicy foods and tannins in wine, for example, close up my airway. Also coughing with water and solids. Needs to drink small amounts at a time. Subjective Others Present Additional Therapist Observations/Patient Presentation Pt arrived on time. Completed home exercises this morning without difficulty. No new complaints. With the pt's permission, a Physical Therapy student was present throughout the session to observe. Chief Complaint(s) Voice Additional Areas of Concern Mild dysphagia symptoms Rehab Expectation/Goals: Patient Goals To be as good as I can be Patient Knowledge/Awareness of PAPER WRAPPING MACHINE OPERATOR Role Excellent in Treatment Patient/Caregiver Compliance with Home Excellent Exercise Program Objective Short Term Goals 1. Pt will sustain vowel phonation for 15 sec at 75 dB or greater across 3 trials to increase breath support for speech and improve vocal quality/stability. 2. Pt perform pitch glide exercises at avg of 65 dB or greater with min cues to increase pitch range and vocal stability at various pitches. 3. Pt will read Functional Phrases at avg of 70 dB or greater across 10 trials to increase speech intelligibility and promote carryover of vocal loudness into his functional environment. 4. Pt will read words/phrases with avg of 70 dB or greater with 90% accuracy and min cues to increase speech intelligibility. GOAL MET Upgrade goal to paragraphs. 5. Pt will maintain loudness levels between 60-65 dB in off -the-cuff remarks between structured tasks with min cues to increase speech intelligibility and promote carryover of adequate loudness in spontaneous conversation. Panel Machine Operator Goals 1. Pt will sustain vowel phonation for 20 sec at 75 dB or greater to increase/ maintain breath support for speech and vocal loudness. 2.Pt will produce prosodic features WFL in spontaneous conversation in 80% of opportunities to increase her ability to communicate ideas, opinions, and wants/needs. 3. Pt will produce vocal loudness in conversation WNL ( 65-75 dB) in 80% of opportunities to increase speech intelligibility in a variety of settings and with a variety of conversation partners. 4. Pt will report voice WFL as measured by VHI (total score of patient perceptual rating). 5. Pt will exhibit vocal quality WNL as measured by CAPE-V (clinician perceptual rating). Treatment Activities The pt completed the following LSVT-Loud exercises: Max Phonation Time: 14. sec; Avg Loudness: 81.6 dB Highs & Lows: 95-371 Hz; Avg Loudness: Highs 77.8 dB, Lows 71.1 dB Functional Phrases: Avg Loudness 72.7 dB Paragraphs: Pt produced paragraphs of moderate length with avg loudness 68.5 dB. Paragraphs included a single paragraph which the pt read several times conveying different emotions. Observed that low emotions (e.g., sadness, frustration) elicited lower loudness levels, which was communicated to the pt. Education/feedback provided RE need to communicate effectively even in situations where one is feeling low. The pt was given instruction to repeat the production with loudness increased by 3 dB ( from 65 dB to 68 dB), which he successfully did. Other paragraphs targeted included humorous poems, which increased average loudness to 68-70 dB. Conversation: Avg Loudness 69 dB, range = 67-77 dB, mod v/v cues Skilled education and feedback was provided throughout, often with use of graphic representation of vocal loudness levels, which served also as beneficial biofeedback . Pt was required and was responsive to v/v prompts to maintain target loudness with euc-yvy-futs remarks. Assessment Patient Response to Treatment Excellent Rehab Potential Excellent Impairments Identified Parkinson's Disease,Speech Intelligibility,Vocal Quality Additional Impairments Identified Mild dysphagia Progress Towards Goals Excellent Progress,Good Progress Assessment of Overall Progress Improving Assessment of Improvement Over the course of treatment, the pt has demonstrated excellent progress toward goals in structured tasks. Loudness levels in spontaneous conversation tend to drop noticably; however, the pt has increased those volumes as his awareness has increased since SOC. He has increased his pitch range, particularly higher pitches, while maintaining good vocal quality and loudness. In both structured tasks and spontaneous speech, he exhibits vocal inflection WNL. Mildly reduced facial expressions are present; however, the pt has been responsive to efforts to incorporate facial expression into speech tasks. The pt has been highly responsive to education and feedback and compliant with home practice. He remains highly invested in his treatment and motivated to improve his abilities. He reports reduced requests to increase loudness from his usual conversation partners, who have also commended him on being easier to understand. Reviewed with Patient Goals,Progress Being Made,Home Exercise Program Patient/Caregiver Understanding Excellent Plan Frequency of Treatment Four Times a Week Length of Session 60 Minutes Therapeutic Contents Client Education,Home Exercise Program,Intelligibility,Voice Training Additional Areas of Treatment Education related to swallow function/safety Provided Patient/Caregiver Instruction Home Exercise Program,Plan of Care,Questions/Concerns,Other Therapy Recommendations Continue with Current Program
--- NOTE | 2020-03-26 17:45 | ST.OPTN ---
Visit Care Team Role Provider Type Sam Patel MD Primary Care Provider Non-Staff Address: [address], [place], [address] Mingo Torres MD Attending Provider Non-Staff Referring Provider Address: [address], [place], [address] PLASTIC SURGERY ASSISTANT Treatment Note PLASTIC SURGERY ASSISTANT Treatment Note Start: 03/05/20 14:03 Freq: Status: Active Protocol: Document 03/26/20 17:40 AROLDO (Rec: 03/26/20 17:44 AROLDO [email or web address]) Speech Pathology Treatment Note Session Time Visit Start Time 15:30 Visit Stop Time 16:30 Total Visit Minutes 60 Visit Information Visit Number 11 Plan of Care Dates 03/05/20 - 05/29/20 Insurance Information Medicare Setting Treatment Setting Outpatient Care Visit Type Note Type Progress Note Next Note Type Next Note Type Treatment Note General Information General Information The pt is an 84-yr-old male who was diagnosed with Parkinson's disease 2-3 yrs ago, with tremors occurring ~2 yrs before. 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 Friends have expressed difficulty hearing him in face -to-face conversation, as well as on the phone. The pt also reported occasional difficulty swallowing, experiencing closing up of his airway. Had experience that spicy foods and tannins in wine, for example, close up my airway. Also coughing with water and solids. Needs to drink small amounts at a time. Subjective Others Present Additional Therapist Observations/Patient Presentation Pt arrived on time. Completed home exercises this morning without difficulty. No new complaints. Chief Complaint(s) Voice Additional Areas of Concern Mild dysphagia symptoms Rehab Expectation/Goals: Patient Goals To be as good as I can be Patient Knowledge/Awareness of PLASTIC SURGERY ASSISTANT Role Excellent in Treatment Patient/Caregiver Compliance with Home Excellent Exercise Program Objective Short Term Goals 1. Pt will sustain vowel phonation for 15 sec at 75 dB or greater across 3 trials to increase breath support for speech and improve vocal quality/stability. 2. Pt perform pitch glide exercises at avg of 65 dB or greater with min cues to increase pitch range and vocal stability at various pitches. 3. Pt will read Functional Phrases at avg of 70 dB or greater across 10 trials to increase speech intelligibility and promote carryover of vocal loudness into his functional environment. 4. Pt will read words/phrases with avg of 70 dB or greater with 90% accuracy and min cues to increase speech intelligibility. GOAL MET Upgrade goal to paragraphs. 5. Pt will maintain loudness levels between 60-65 dB in off -the-cuff remarks between structured tasks with min cues to increase speech intelligibility and promote carryover of adequate loudness in spontaneous conversation. Skatesman Goals 1. Pt will sustain vowel phonation for 20 sec at 75 dB or greater to increase/ maintain breath support for speech and vocal loudness. 2.Pt will produce prosodic features WFL in spontaneous conversation in 80% of opportunities to increase her ability to communicate ideas, opinions, and wants/needs. 3. Pt will produce vocal loudness in conversation WNL ( 65-75 dB) in 80% of opportunities to increase speech intelligibility in a variety of settings and with a variety of conversation partners. 4. Pt will report voice WFL as measured by VHI (total score of patient perceptual rating). 5. Pt will exhibit vocal quality WNL as measured by CAPE-V (clinician perceptual rating). Treatment Activities The pt completed the following LSVT-Loud exercises: Max Phonation Time: 16.1 sec; Avg Loudness: 80.4 dB Highs & Lows: 77-367 Hz; Avg Loudness: Highs 77.9 dB, Lows 71.9 dB Functional Phrases: Avg Loudness 69 dB Paragraphs: Pt read lengthy paragraphs over 10 minutes of continuous reading with avg loudness 68.4 dB. Range = 66- 70 dB Conversation: Avg Loudness 68 dB, range = 66-70 dB, mod v/v cues Skilled education and feedback was provided throughout, often with use of graphic representation of vocal loudness levels, which served also as beneficial biofeedback . Pt was required and was responsive to v/v prompts to maintain target loudness with [id number] remarks. Assessment Patient Response to Treatment Excellent Rehab Potential Excellent Impairments Identified Parkinson's Disease,Speech Intelligibility,Vocal Quality Additional Impairments Identified Mild dysphagia Progress Towards Goals Excellent Progress,Good Progress Assessment of Overall Progress Improving Assessment of Improvement The pt exhibited significant progress today in producing low pitches with good quality of voice. He also maintained consistent loudness levels over 10 minutes of continuous reading. He demonstrated improving self-monitoring and adjusting of vocal loudness in conversation. Reviewed with Patient Goals,Progress Being Made,Home Exercise Program Patient/Caregiver Understanding Excellent Plan Frequency of Treatment Four Times a Week Length of Session 60 Minutes Therapeutic Contents Client Education,Home Exercise Program,Intelligibility,Voice Training Additional Areas of Treatment Education related to swallow function/safety Provided Patient/Caregiver Instruction Home Exercise Program,Plan of Care,Questions/Concerns,Other Therapy Recommendations Continue with Current Program
--- NOTE | 2020-03-27 14:35 | ST.OPTN ---
Visit Care Team Role Provider Type Sam Patel MD Primary Care Provider Non-Staff Address: [address], [place], [address] Mingo Torres MD Attending Provider Non-Staff Referring Provider Address: [address], [place], [address] VISUAL ARTIST Treatment Note VISUAL ARTIST Treatment Note Start: 03/05/20 14:03 Freq: Status: Active Protocol: Document 03/27/20 14:14 AROLDO (Rec: 03/27/20 14:35 AROLDO [id number]) Speech Pathology Treatment Note Session Time Visit Start Time 13:00 Visit Stop Time 14:00 Total Visit Minutes 60 Visit Information Visit Number 12 Plan of Care Dates 03/05/20 - 05/29/20 Insurance Information Medicare Setting Treatment Setting Outpatient Care Visit Type Note Type Progress Note Next Note Type Next Note Type Treatment Note General Information General Information The pt is an 84-yr-old male who was diagnosed with Parkinson's disease 2-3 yrs ago, with tremors occurring ~2 yrs before. 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 Friends have expressed difficulty hearing him in face -to-face conversation, as well as on the phone. The pt also reported occasional difficulty swallowing, experiencing closing up of his airway. Had experience that spicy foods and tannins in wine, for example, close up my airway. Also coughing with water and solids. Needs to drink small amounts at a time. Subjective Others Present Additional Therapist Observations/Patient Presentation Pt arrived on time. Completed home exercises this morning (~ 4 hrs prior) without difficulty. [place] that his voice was tired from earlier exercise. Chief Complaint(s) Voice Additional Areas of Concern Mild dysphagia symptoms Rehab Expectation/Goals: Patient Goals To be as good as I can be Patient Knowledge/Awareness of VISUAL ARTIST Role Excellent in Treatment Patient/Caregiver Compliance with Home Excellent Exercise Program Objective Short Term Goals 1. Pt will sustain vowel phonation for 15 sec at 75 dB or greater across 3 trials to increase breath support for speech and improve vocal quality/stability. 2. Pt perform pitch glide exercises at avg of 65 dB or greater with min cues to increase pitch range and vocal stability at various pitches. 3. Pt will read Functional Phrases at avg of 70 dB or greater across 10 trials to increase speech intelligibility and promote carryover of vocal loudness into his functional environment. 4. Pt will read paragraphs with avg of 70 dB or greater with 90% accuracy and min cues to increase speech intelligibility. 5. Pt will maintain loudness levels between 60-65 dB in off -the-cuff remarks between structured tasks with min cues to increase speech intelligibility and promote carryover of adequate loudness in spontaneous conversation. Prison Goals 1. Pt will sustain vowel phonation for 20 sec at 75 dB or greater to increase/ maintain breath support for speech and vocal loudness. 2.Pt will produce prosodic features WFL in spontaneous conversation in 80% of opportunities to increase her ability to communicate ideas, opinions, and wants/needs. 3. Pt will produce vocal loudness in conversation WNL ( 65-75 dB) in 80% of opportunities to increase speech intelligibility in a variety of settings and with a variety of conversation partners. 4. Pt will report voice WFL as measured by VHI (total score of patient perceptual rating). 5. Pt will exhibit vocal quality WNL as measured by CAPE-V (clinician perceptual rating). Treatment Activities The pt completed the following LSVT-Loud exercises: Max Phonation Time: 14.5 sec; Avg Loudness: 81.1 dB Highs & Lows: 105-372 Hz; Avg Loudness: Highs 77.8 dB, Lows 71.1 dB Functional Phrases: Avg Loudness 73 dB Paragraphs: Pt read lengthy paragraphs, avg loudness 68.3 dB. Range = 64-71 dB Conversation: Avg Loudness 66. 1 dB, range = 65-69 dB, mod v/ v cues The pt's voice was perceived as fatigued, characterized by increased breathiness and reduced power despite pt's efforts to increase loudness. Education provided RE targeting breath support vs straining at VFs to increase loudness. Demonstration provided. Pt verbalized understanding. Skilled education and feedback was provided throughout, often with use of graphic representation of vocal loudness levels, which served also as beneficial biofeedback . Pt was required and was responsive to v/v prompts to maintain target loudness with [id number] remarks. Assessment Patient Response to Treatment Excellent Rehab Potential Excellent Impairments Identified Parkinson's Disease,Speech Intelligibility,Vocal Quality Additional Impairments Identified Mild dysphagia Progress Towards Goals Excellent Progress,Good Progress Assessment of Overall Progress Improving Assessment of Improvement The pt continues to make good progress toward goals. Reading paragraphs with avg loudenss typically 68-69 dB, just short of goal. He continues to reduce loudness with spontaneous speech, although is increasing ability to self- monitor and -correct. Reviewed with Patient Goals,Progress Being Made,Home Exercise Program Patient/Caregiver Understanding Excellent Plan Frequency of Treatment Four Times a Week Length of Session 60 Minutes Therapeutic Contents Client Education,Home Exercise Program,Intelligibility,Voice Training Additional Areas of Treatment Education related to swallow function/safety Provided Patient/Caregiver Instruction Home Exercise Program,Plan of Care,Questions/Concerns,Other Therapy Recommendations Continue with Current Program
--- NOTE | 2020-03-31 14:48 | ST.OPTN ---
Visit Care Team Role Provider Type Sam Patel MD Primary Care Provider Non-Staff Address: [address], [place], [address] Mingo Torres MD Attending Provider Non-Staff Referring Provider Address: [address], [place], [address] PEWTER CASTER Treatment Note PEWTER CASTER Treatment Note Start: 03/05/20 14:03 Freq: Status: Active Protocol: Document 03/31/20 14:38 AROLDO (Rec: 03/31/20 14:48 AROLDO [email or web address]) Speech Pathology Treatment Note Session Time Visit Start Time 13:30 Visit Stop Time 14:25 Total Visit Minutes 55 Visit Information Visit Number 13 Plan of Care Dates 03/05/20 - 05/29/20 Insurance Information Medicare Setting Treatment Setting Outpatient Care Visit Type Note Type Progress Note Next Note Type Next Note Type Treatment Note General Information General Information The pt is an 84-yr-old male who was diagnosed with Parkinson's disease 2-3 yrs ago, with tremors occurring ~2 yrs before. 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 Friends have expressed difficulty hearing him in face -to-face conversation, as well as on the phone. The pt also reported occasional difficulty swallowing, experiencing closing up of his airway. Had experience that spicy foods and tannins in wine, for example, close up my airway. Also coughing with water and solids. Needs to drink small amounts at a time. Subjective Others Present Additional Therapist Observations/Patient Presentation Due to scheduling conflicts, the session was cut short by 5 minutes today. The pt arrived on time and had no new complaints. Chief Complaint(s) Voice Additional Areas of Concern Mild dysphagia symptoms Rehab Expectation/Goals: Patient Goals To be as good as I can be Patient Knowledge/Awareness of PEWTER CASTER Role Excellent in Treatment Patient/Caregiver Compliance with Home Excellent Exercise Program Objective Short Term Goals 1. Pt will sustain vowel phonation for 15 sec at 75 dB or greater across 3 trials to increase breath support for speech and improve vocal quality/stability. GOAL MET 2. Pt perform pitch glide exercises at avg of 65 dB or greater with min cues to increase pitch range and vocal stability at various pitches. GOAL MET 3. Pt will read Functional Phrases at avg of 70 dB or greater across 10 trials to increase speech intelligibility and promote carryover of vocal loudness into his functional environment. GOAL MET 4. Pt will read paragraphs with avg of 70 dB or greater with 90% accuracy and min cues to increase speech intelligibility. 5. Pt will maintain loudness levels between 60-65 dB in off -the-cuff remarks between structured tasks with min cues to increase speech intelligibility and promote carryover of adequate loudness in spontaneous conversation. Sales And Service Advisor Goals 1. Pt will sustain vowel phonation for 20 sec at 75 dB or greater to increase/ maintain breath support for speech and vocal loudness. 2.Pt will produce prosodic features WFL in spontaneous conversation in 80% of opportunities to increase her ability to communicate ideas, opinions, and wants/needs. 3. Pt will produce vocal loudness in conversation WNL ( 65-75 dB) in 80% of opportunities to increase speech intelligibility in a variety of settings and with a variety of conversation partners. 4. Pt will report voice WFL as measured by VHI (total score of patient perceptual rating). 5. Pt will exhibit vocal quality WNL as measured by CAPE-V (clinician perceptual rating). Treatment Activities The pt completed the following LSVT-Loud exercises: Max Phonation Time: 15 sec; Avg Loudness: 81.9 dB Highs & Lows: 103-371 Hz; Avg Loudness: Highs 80.3 dB, Lows 73.6 dB Functional Phrases: Avg Loudness 72 dB Conversation: Pt participated in spontaneous and guided conversations of ~15 min duration with avg loudness 68. 5 dB. Range = 69.2-67.7 dB min cues. Skilled education and feedback was provided throughout, often with use of graphic representation of vocal loudness levels, which served also as beneficial biofeedback . Pt was required and was responsive to v/v prompts to maintain target loudness with [id number] remarks. Assessment Patient Response to Treatment Excellent Rehab Potential Excellent Impairments Identified Parkinson's Disease,Speech Intelligibility,Vocal Quality Additional Impairments Identified Mild dysphagia Progress Towards Goals Excellent Progress,Good Progress Assessment of Overall Progress Improving Assessment of Improvement The pt continues to make good progress toward goals. Reading paragraphs with avg loudenss typically 68-69 dB, just short of goal. He demonstrated improved consistency of loudness levels in conversation with reduced need for cuing. Reviewed with Patient Goals,Progress Being Made,Home Exercise Program Patient/Caregiver Understanding Excellent Plan Frequency of Treatment Four Times a Week Length of Session 60 Minutes Therapeutic Contents Client Education,Home Exercise Program,Intelligibility,Voice Training Additional Areas of Treatment Education related to swallow function/safety Provided Patient/Caregiver Instruction Home Exercise Program,Plan of Care,Questions/Concerns,Other Therapy Recommendations Continue with Current Program
--- NOTE | 2020-04-01 16:47 | ST.OPTN ---
Visit Care Team Role Provider Type Sam Patel MD Primary Care Provider Non-Staff Address: [address], [place], [address] Mingo Torres MD Attending Provider Non-Staff Referring Provider Address: [address], [place], [address] PRODUCTION ANALYST Treatment Note PRODUCTION ANALYST Treatment Note Start: 03/05/20 14:03 Freq: Status: Active Protocol: Document 04/01/20 16:40 AROLDO (Rec: 04/01/20 16:47 AROLDO [id number]) Speech Pathology Treatment Note Session Time Visit Start Time 15:30 Visit Stop Time 16:30 Total Visit Minutes 60 Visit Information Visit Number 14 Plan of Care Dates 03/05/20 - 05/29/20 Insurance Information Medicare Setting Treatment Setting Outpatient Care Visit Type Note Type Progress Note Next Note Type Next Note Type Treatment Note General Information General Information The pt is an 84-yr-old male who was diagnosed with Parkinson's disease 2-3 yrs ago, with tremors occurring ~2 yrs before. 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 Friends have expressed difficulty hearing him in face -to-face conversation, as well as on the phone. The pt also reported occasional difficulty swallowing, experiencing closing up of his airway. Had experience that spicy foods and tannins in wine, for example, close up my airway. Also coughing with water and solids. Needs to drink small amounts at a time. Subjective Others Present Additional Therapist Observations/Patient Presentation The pt arrived on time and had no new complaints. Chief Complaint(s) Voice Additional Areas of Concern Mild dysphagia symptoms Rehab Expectation/Goals: Patient Goals To be as good as I can be Patient Knowledge/Awareness of PRODUCTION ANALYST Role Excellent in Treatment Patient/Caregiver Compliance with Home Excellent Exercise Program Objective Short Term Goals 1. Pt will sustain vowel phonation for 15 sec at 75 dB or greater across 3 trials to increase breath support for speech and improve vocal quality/stability. GOAL MET 2. Pt perform pitch glide exercises at avg of 65 dB or greater with min cues to increase pitch range and vocal stability at various pitches. GOAL MET 3. Pt will read Functional Phrases at avg of 70 dB or greater across 10 trials to increase speech intelligibility and promote carryover of vocal loudness into his functional environment. GOAL MET 4. Pt will read paragraphs with avg of 70 dB or greater with 90% accuracy and min cues to increase speech intelligibility. 5. Pt will maintain loudness levels between 60-65 dB in off -the-cuff remarks between structured tasks with min cues to increase speech intelligibility and promote carryover of adequate loudness in spontaneous conversation. Halfway Goals 1. Pt will sustain vowel phonation for 20 sec at 75 dB or greater to increase/ maintain breath support for speech and vocal loudness. 2.Pt will produce prosodic features WFL in spontaneous conversation in 80% of opportunities to increase her ability to communicate ideas, opinions, and wants/needs. 3. Pt will produce vocal loudness in conversation WNL ( 65-75 dB) in 80% of opportunities to increase speech intelligibility in a variety of settings and with a variety of conversation partners. 4. Pt will report voice WFL as measured by VHI (total score of patient perceptual rating). 5. Pt will exhibit vocal quality WNL as measured by CAPE-V (clinician perceptual rating). Treatment Activities The pt completed the following LSVT-Loud exercises: Max Phonation Time: 15.5 sec; Avg Loudness: 89.1 dB Pt produced durations of 13.5-15. 5 with lower loudness levels ( 77-78 dB) compared to shorter durations of 12.3-13.1 with louder levels (79-82 dB). Highs & Lows: 107-379 Hz; Avg Loudness: Highs 79.8 dB, Lows 74.1 dB Functional Phrases: Avg Loudness 73 dB Conversation: Pt participated in spontaneous >20 min duration with avg loudness 66. 7 dB in quiet environment. In environments with background noise levels of 68 - 80 dB ( cafeteria, parking lot next to large running truck) and while wearing a mask in compliance to CDC precautions for COVID, the pt was intelligible with mild but normal effort for such conditions. Objective measurements of his vocal loudness were not made. Perceptually, the pt was WFL. Skilled education and feedback was provided throughout, often with use of graphic representation of vocal loudness levels, which served also as beneficial biofeedback . Pt was required and was responsive to v/v prompts to maintain target loudness with [id number] remarks. Assessment Patient Response to Treatment Excellent Rehab Potential Excellent Impairments Identified Parkinson's Disease,Speech Intelligibility,Vocal Quality Additional Impairments Identified Mild dysphagia Progress Towards Goals Excellent Progress,Good Progress Assessment of Overall Progress Improving Assessment of Improvement The pt continues to make excellent progress, with increased challenge to conversational loudness levels made in variation of noisy environments. At end of session, the pt reported not feeling increased or substantial effort was needed to be adequately heard. Reviewed with Patient Goals,Progress Being Made,Home Exercise Program Patient/Caregiver Understanding Excellent Plan Frequency of Treatment Four Times a Week Length of Session 60 Minutes Therapeutic Contents Client Education,Home Exercise Program,Intelligibility,Voice Training Additional Areas of Treatment Education related to swallow function/safety Provided Patient/Caregiver Instruction Home Exercise Program,Plan of Care,Questions/Concerns,Other Therapy Recommendations Continue with Current Program
--- NOTE | 2020-04-02 16:45 | ST.OPTN ---
Visit Care Team Role Provider Type Sam Patel MD Primary Care Provider Non-Staff Address: [address], [place], [address] Mingo Torres MD Attending Provider Non-Staff Referring Provider Address: [address], [place], [address] MANAGER METROLOGY Treatment Note MANAGER METROLOGY Treatment Note Start: 03/05/20 14:03 Freq: Status: Active Protocol: Document 04/02/20 16:36 AROLDO (Rec: 04/02/20 16:45 AROLDO [email or web address]) Speech Pathology Treatment Note Session Time Visit Start Time 15:30 Visit Stop Time 16:30 Total Visit Minutes 60 Visit Information Visit Number 15 Plan of Care Dates 03/05/20 - 05/29/20 Insurance Information Medicare Setting Treatment Setting Outpatient Care Visit Type Note Type Progress Note Next Note Type Next Note Type Treatment Note General Information General Information The pt is an 84-yr-old male who was diagnosed with Parkinson's disease 2-3 yrs ago, with tremors occurring ~2 yrs before. 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 Friends have expressed difficulty hearing him in face -to-face conversation, as well as on the phone. The pt also reported occasional difficulty swallowing, experiencing closing up of his airway. Had experience that spicy foods and tannins in wine, for example, close up my airway. Also coughing with water and solids. Needs to drink small amounts at a time. Subjective Others Present Additional Therapist Observations/Patient Presentation The pt arrived on time and had no new complaints. Chief Complaint(s) Voice Additional Areas of Concern Mild dysphagia symptoms Rehab Expectation/Goals: Patient Goals To be as good as I can be Patient Knowledge/Awareness of MANAGER METROLOGY Role Excellent in Treatment Patient/Caregiver Compliance with Home Excellent Exercise Program Objective Short Term Goals 1. Pt will sustain vowel phonation for 15 sec at 75 dB or greater across 3 trials to increase breath support for speech and improve vocal quality/stability. GOAL MET 2. Pt perform pitch glide exercises at avg of 65 dB or greater with min cues to increase pitch range and vocal stability at various pitches. GOAL MET 3. Pt will read Functional Phrases at avg of 70 dB or greater across 10 trials to increase speech intelligibility and promote carryover of vocal loudness into his functional environment. GOAL MET 4. Pt will read paragraphs with avg of 70 dB or greater with 90% accuracy and min cues to increase speech intelligibility. 5. Pt will maintain loudness levels between 60-65 dB in off -the-cuff remarks between structured tasks with min cues to increase speech intelligibility and promote carryover of adequate loudness in spontaneous conversation. [facility] Goals 1. Pt will sustain vowel phonation for 20 sec at 75 dB or greater to increase/ maintain breath support for speech and vocal loudness. 2.Pt will produce prosodic features WFL in spontaneous conversation in 80% of opportunities to increase her ability to communicate ideas, opinions, and wants/needs. 3. Pt will produce vocal loudness in conversation WNL ( 65-75 dB) in 80% of opportunities to increase speech intelligibility in a variety of settings and with a variety of conversation partners. 4. Pt will report voice WFL as measured by VHI (total score of patient perceptual rating). 5. Pt will exhibit vocal quality WNL as measured by CAPE-V (clinician perceptual rating). Treatment Activities The pt completed the following LSVT-Loud exercises: Max Phonation Time: 14.2 sec; Avg Loudness: 89.1 dB Highs & Lows: 100-391 Hz; Avg Loudness: Highs 80.8 dB, Lows 73.4 dB Functional Phrases: Avg Loudness 74 dB Conversation: Pt participated in spontaneous >20 min duration with avg loudness 70. 3 dB in quiet environment. In environments with background noise levels of 69 dB and while wearing a cloth mask in compliance to CDC precautions for COVID, the pt was ~90% intelligible. Increased effort on the listener was required today vs yesterday; suspect the heavier mask contributed. Skilled feedback was provided to the pt RE need for even greater loudness levels when conversing with mask use. He verbalized understanding and was responsive to prompts to increase loudness for intelligibility. Skilled education and feedback was provided throughout, often with use of graphic representation of vocal loudness levels, which served also as beneficial biofeedback .. Assessment Patient Response to Treatment Excellent Rehab Potential Excellent Impairments Identified Parkinson's Disease,Speech Intelligibility,Vocal Quality Additional Impairments Identified Mild dysphagia Progress Towards Goals Excellent Progress,Good Progress Assessment of Overall Progress Improving Assessment of Improvement The pt continues to make excellent progress across all tasks. Reduced intelligibility was noted in very noisy environments in which the pt was speaking from behind a protective face mask. Given the current pandemic situation and need for mask use, this presents an increased challenge to the pt. He verbalized and demonstrated understanding by increasing loudness when needed or prompted. Reviewed with Patient Goals,Progress Being Made,Home Exercise Program Patient/Caregiver Understanding Excellent Plan Frequency of Treatment Four Times a Week Length of Session 60 Minutes Therapeutic Contents Client Education,Home Exercise Program,Intelligibility,Voice Training Additional Areas of Treatment Education related to swallow function/safety Provided Patient/Caregiver Instruction Home Exercise Program,Plan of Care,Questions/Concerns,Other Therapy Recommendations Continue with Current Program
--- NOTE | 2020-04-03 14:54 | ST.OPDS ---
Visit Care Team Role Provider Type Sam Patel MD Primary Care Provider Non-Staff Address: [address], [place], [address] Mingo Torres MD Attending Provider Non-Staff Referring Provider Address: [address], [place], [address] ADDICTION THERAPIST Treatment Note ADDICTION THERAPIST Treatment Note Start: 03/05/20 14:03 Freq: Status: Active Protocol: Document 04/03/20 13:36 AROLDO (Rec: 04/03/20 14:53 AROLDO [email or web address]) Speech Pathology Treatment Note Session Time Visit Start Time 13:00 Visit Stop Time 14:00 Total Visit Minutes 60 Visit Information Visit Number 16 Plan of Care Dates 03/05/20 - 05/29/20 Insurance Information Medicare Setting Treatment Setting Outpatient Care Visit Type Note Type Discharge Summary Next Note Type Next Note Type Treatment Note General Information General Information The pt is an 84-yr-old male who was diagnosed with Parkinson's disease 2-3 yrs ago, with tremors occurring ~2 yrs before. 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 Friends have expressed difficulty hearing him in face -to-face conversation, as well as on the phone. The pt also reported occasional difficulty swallowing, experiencing closing up of his airway. Had experience that spicy foods and tannins in wine, for example, close up my airway. Also coughing with water and solids. Needs to drink small amounts at a time. Subjective Others Present Family Observations/Patient Presentation Ridge arrived on time and had no new complaints. He was accompanied by his significant other, Amy. Both Ridge and Amy reported feeling that his volume is much improved. Amy noted that he has been more participatory in conversations and sensed that even his hearing had improved. Suspect this reflects increased interest in conversations resulting from the increased engagement, vs actual hearing improvement, which was expressed to the couple. Nevertheless, they both expressed appreciation for the improvements. Chief Complaint(s) Voice Additional Areas of Concern Mild dysphagia symptoms Rehab Expectation/Goals: Patient Goals To be as good as I can be Patient Knowledge/Awareness of ADDICTION THERAPIST Role Excellent in Treatment Patient/Caregiver Compliance with Home Excellent Exercise Program Objective Short Term Goals 1. Pt will sustain vowel phonation for 15 sec at 75 dB or greater across 3 trials to increase breath support for speech and improve vocal quality/stability. GOAL MET 2. Pt perform pitch glide exercises at avg of 65 dB or greater with min cues to increase pitch range and vocal stability at various pitches. GOAL MET 3. Pt will read Functional Phrases at avg of 70 dB or greater across 10 trials to increase speech intelligibility and promote carryover of vocal loudness into his functional environment. GOAL MET 4. Pt will read paragraphs with avg of 70 dB or greater with 90% accuracy and min cues to increase speech intelligibility. GOAL NOT MET; ACHIEVED 68 dB WITH CONSISTENCY. 5. Pt will maintain loudness levels between 60-65 dB in off -the-cuff remarks between structured tasks with min cues to increase speech intelligibility and promote carryover of adequate loudness in spontaneous conversation. GOAL MET Traveling Nurse Goals 1. Pt will sustain vowel phonation for 20 sec at 75 dB or greater to increase/ maintain breath support for speech and vocal loudness. GOAL NOT MET; MPT = 16.1 SEC 2.Pt will produce prosodic features WFL in spontaneous conversation in 80% of opportunities to increase her ability to communicate ideas, opinions, and wants/needs. GOAL MET 3. Pt will produce vocal loudness in conversation WNL ( 65-75 dB) in 80% of opportunities to increase speech intelligibility in a variety of settings and with a variety of conversation partners. GOAL MET 4. Pt will report voice WFL as measured by VHI (total score of patient perceptual rating). GOAL MET 5. Pt will exhibit vocal quality WNL as measured by CAPE-V (clinician perceptual rating). GOAL NOT MET; SIGNIFICANT PROGRESS - MILD IMPAIRMENT (23% @ EOC vs 65% @ SOC) Treatment Activities The pt completed the following LSVT-Loud exercises: Max Phonation Time: 12.3 sec; Avg Loudness: 78 dB Highs & Lows: 105-400 Hz; Avg Loudness: Highs 78 dB, Lows 70 dB Functional Phrases: Avg Loudness 72 dB Conversation: Pt participated in spontaneous conversation with avg loudness 70.3 dB in quiet environment. Skilled education and feedback was provided throughout, often with use of graphic representation of vocal loudness levels, which served also as beneficial biofeedback .. Assessment Patient Response to Treatment Excellent Rehab Potential Excellent Impairments Identified Parkinson's Disease,Speech Intelligibility,Vocal Quality Additional Impairments Identified Mild dysphagia Progress Towards Goals Excellent Progress,Good Progress Assessment of Overall Progress Improving Assessment of Improvement Over the course of treatment, Ridge has demonstrated significant improvement in vocal loudness, quality of voice (particularly when meeting targeted loudness levels), vocal inflection, and facial expression. He has been highly participatory and compliant with HEP tasks and has exhibited excellent awareness and self-monitoring of loudness levels. Occasional prompts to increase loudness in conversation or off-the- cuff remarks has continued to be beneficial, as he has been consistently responsive to them. Although loudness levels occasionally drop in extensive spontaneous conversation, Ridge has improved the duration at which he is able to maintain loudness levels WNL At loudness levels of ~67 dB and lower, vocal quality becomes increasingly breathy and rough. These features are nearly eliminated at loudness levels above 67 dB. Results of Voice Handicap Index (pt perceptual questionnaire) show improvement in overall impact of voice from Mild (25% impact ) to WFL (17% impact) with the following results in each subscale: Physical Impact: 13% (improved from 35% at SOC); Emotional Impact: 15% ( improved from 20% at SOC); Functional Impact: Unchanged at 20% from start to end of care. CAPE-V (clinician perceptual rating) indicates improvement from Moderate-Severe impairment of vocal quality at SOC to Mild impairment at EOC , with improvements in Roughness: 9% (34% at SOC); Breathiness: 14% (71% at SOC); Strain: WNL (27% at SOC); Pitch: WNL (24% at SOC); and Loudness: 19% (53% at SOC). Swallowing: At SOC, the pt reported min-moderate frequency of coughing and sneezing with oral intake. Today, both Ridge and Amy reported rarely noticing Ridge either coughing or sneezing while eating and drinking. While dysphagia was not assessed nor directly targeted during the course of treatment, it appears to have improved as well. Written information RE common dysphagia symptoms was provided to the pt. Ridge was invited to return to Speech Therapy if dysphagia symptoms recur or worsen. It is also recommended, per LSVT-Loud protocol, to follow up in ~6 mo for reassessment of voice/ loudness with treatment if indicated. The couple verbalized understanding and agreement. Ridge has been delightful to work with, and his hard work is much appreciated. Reviewed with Patient Goals,Progress Being Made,Home Exercise Program Patient/Caregiver Understanding Excellent Plan Frequency of Treatment No Further Therapy Therapeutic Contents Client Education,Home Exercise Program,Intelligibility,Voice Training Additional Areas of Treatment Education related to swallow function/safety Provided Patient/Caregiver Instruction Home Exercise Program,Plan of Care,Questions/Concerns,Other Therapy Recommendations Discharge to Home Exercise Program Comment F/U in 6 mos Reason for Discharge LSVT-Loud completed
== END 2020-04-09 13:33 | disposition home or self-care (01) ==
LOC: SP 13:00
PROVIDERS: PCP Family Medicine; Referring Provider Psychiatry & Neurology Neurology; Visit Provider Psychiatry & Neurology Neurology
DX: G20 Parkinson's disease (principal); R27.0 Ataxia, unspecified
CPT/HCPCS: 92507; 92520; 92524

== ENCOUNTER 2020-04-03 14:15 | Outpatient (RCR) | payer MEDICARE, SELFPAY ==
--- NOTE | 2020-03-06 15:39 | PT.OIE ---
Current Diagnoses Parkinson's disease (03/06/20) Ataxia, unspecified (03/06/20) Visit Care Team Role Provider Type Sam Patel MD Primary Care Provider Non-Staff Specialty: Medical Address: [address], [place], [address] Email: Mingo Torres MD Attending Provider Non-Staff Referring Provider Specialty: Neurology Address: [address] , [place], [address] Email: Physical Therapy Initial Evaluation PT-OP-A Visit Information Start: 03/06/20 14:03 Freq: Status: Active Protocol: Document 03/06/20 14:08 MB (Rec: 03/06/20 15:09 MB [id number]) Out-Patient Physical Therapy Visit Information Visit Information Visit Type Initial Evaluation Visit Note BIG Visit Start Time 14:08 Visit Stop Time 15:08 Total Visit Minutes 60 Visit Number 1 Evaluation Information Evaluation Date 03/06/20 PT-OP-B Current Condition Start: 03/06/20 14:03 Freq: Status: Active Protocol: Document 03/06/20 14:08 MB (Rec: 03/06/20 15:09 MB [id number]) Current Condition History of Current Condition Onset Date 5-7 years Current Complaints Decreased ability to think through math problems, right UE tremor History of Current Condition Pt reports that the first sign of his PD was right hand tremor and difficulty with performing math in his head. 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 He has trouble sleeping and has trouble falling asleep d/t restless legs. It can take up to a couple of hours to fall asleep. PMH: Tremor right UE and pt is right-handed, prostate and colon CA, colon resection, gallbladder disease, carpal tunnel surgery His biggest problem is his voice. He works out with weights each day. He has 5 lb free weights. He can stand on his left foot to get on shorts but cannot stand on his right foot to get on shorts. He reports problems with his Ropininrole that he takes at night. He states that his legs get worse as far as aching after taking it. Pt drinks 2.5 cups of coffee a day, one beer and 60 oz of water. Pt denies falls. He is driving . He was up on ladders cleaning gutters but was told by doctor not to do so. He wonders about using a chain saw. There are two steps to enter to get into the house without a rail. Prior Treatments and Tests PT in the past and it was not very helpful Treatment Goals Patient/Caregiver Goals To be able to maintain function and normalcy. His voice is is biggest problem. He would like to get back to 3 mile course of walking in 42 minutes. He would like to get back to walking 2 miles on the beach. He would like to be able to stand on his right leg to put on shorts. Prior Functional Status Baseline Function- ADL's Independent Baseline Function- Mobility Independent Baseline Function- Gait I PT-OP-C Subjective Start: 03/06/20 14:03 Freq: Status: Active Protocol: Document 03/06/20 14:08 MB (Rec: 03/06/20 15:09 MB [id number]) OP-PT Subjective Patient Comments Patient Comments See history of current condition PT-OP-D Balance Start: 03/06/20 14:03 Freq: Status: Active Protocol: Document 03/06/20 14:08 MB (Rec: 03/06/20 15:38 MB [id number]) OP-PT Balance Assessment Sitting Balance Static Sitting Balance Ability Normal Dynamic Sitting Balance Ability Normal Standing Balance Static Standing Balance Ability Normal Dynamic Standing Balance Ability Normal Balance Tests Other Other Balance Tests Performed FGA score 25/30, indicating increased risk for falling 30 sec sit to stand without UE support: 15; two trials d/t pt not putting hips down on the mat with first trial Hamilton Fall Scale Copyright Permission PT-OP-G Mobility & Gait Start: 03/06/20 14:03 Freq: Status: Active Protocol: Document 03/06/20 14:08 MB (Rec: 03/06/20 15:38 MB [id number]) OP Gait Assessment Comments Gait Comments 6MWT 1626 feet. Pt has good gait speed, decreased arm swing and occ scuffing of lateral sides of feet. Decreased confidence with stairs without rail and pt takes time to adjust for descending steps PT-OP-J Posture/Palpation/Skin Start: 03/06/20 14:03 Freq: Status: Active Protocol: Document 03/06/20 14:08 MB (Rec: 03/06/20 15:39 MB [id number]) Posture Evaluation Comments Posture Comments Forward, flexed posture in sitting and standing PT-OP-M Strength Start: 03/06/20 14:03 Freq: Status: Active Protocol: Document 03/06/20 14:08 MB (Rec: 03/06/20 15:38 MB [id number]) Shoulder Strength Shoulder Manual Muscle Testing Left Flexion 5 Normal Right Flexion 5 Normal Elbow/Forearm Strength Elbow and Forearm Manual Muscle Testing Left Flexion (C6) 5 Normal Extension (C7) 5 Normal Right Flexion (C6) 5 Normal Extension (C7) 5 Normal Hip Strength Hip Manual Muscle Testing Left Flexion (L2) 5 Normal Right Flexion (L2) 5 Normal PT-OP-Q Treatments Start: 03/06/20 14:03 Freq: Status: Active Protocol: Document 03/06/20 14:08 MB (Rec: 03/06/20 15:21 MB [id number]) Self-Care/Home Management Treatment Education Other Education Handout and education about LSVT BIG, focus on large amplitude and effort, what to consider as far as functional activity goals, difference between strength deficits ( which he does not have) and movement impairment Talk with doctor about medication issues, increasing non-caffeinated fluid intake PT-OP-T Assessment and Plan Start: 03/06/20 14:03 Freq: Status: Active Protocol: Document 03/06/20 14:08 MB (Rec: 03/06/20 15:38 MB [id number]) Physical Therapy Assessment Rehab Potential Rehabilitation Potential Good Evaluation Complexity Number of Personal Factors/Comorbidities 1-2 Number of Body Systems Impaired 1-2 Clinical Presentation at Evaluation Evolving Impairments Impairments Balance,Coordination, Functional Activities,Gait, Posture,Soft Tissue Mobility Goals 5 Water Resource Agent Goal (LTG) Pt will perform BIG exercises with appropriate amplitude and effort with I to improve posture and gait by 04/10/2020. LTG Duration 4 weeks 4 Senior Care Goal (LTG) Pt will perform 20 reps sit to stand without UE support in 30 sec to improve functional mobility and leg strength by . LTG Duration 4 weeks 3 Water Resource Agent Goal (LTG) Pt will demonstrate donning and doffing gait belt through legs standing on right leg and then standing on left leg to improve balance with dressing by 04/10/2020. LTG Duration 4 weeks 2 Water Resource Agent Goal (LTG) Pt will gait train 2270 feet in 6 minutes to allow him to return to prior 3 mile walk in 42 minutes by 04/10/2020. LTG Duration 4 weeks 1 Senior Care Goal (LTG) Pt will present with FGA score of at least 27/30 to reflect improved balance and decreased fall risk by 04/10/2020. LTG Duration 4 weeks Assessment Summary Assessment Pt is an 84 y/o male presenting with 5-7 year diagnosis of PD. 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 He reports trouble with restless leg syndrome that affects his sleeping and that it takes him up to 2 hours to fall asleep. He notices that taking the evening dose of Ropinirole causes his legs to hurt worse. PT encourages pt to talk with doctor about this. Poor sleeping may affect overall physical health and response to BIG and LOUD therapies. Pt presents with postural changes , occ scuffing of feet with walking and decreased balance with stair training and FGA today. He will benefit from BIG training to improve foot clearance, gait speed, posture and quality of life. Physical Therapy Plan Frequency and Duration Frequency of Treatment 4x/Week Duration of Treatment 4 weeks Plan of Care Start Date 03/06/20 Plan of Care End Date 04/10/20 Therapeutic Interventions Therapeutic Interventions Balance Training,Coordination Training,Gait Training,Home Exercise Program,Neuromuscular Re-education,Patient/ Caregiver Education,Self-Care/ Home Management,Therapeutic Activities,Therapeutic Exercises Next Visit Focus/Plan Next Note Type Treatment Note Next Visit Plan Initiate BIG protocol exercises
--- NOTE | 2020-03-06 15:40 | PT.OPPOC ---
Physical, Occupational & Speech Therapy At [facility] Current Diagnoses Parkinson's disease (03/06/20) Ataxia, unspecified (03/06/20) Visit Care Team Role Provider Type Sam Patel MD Primary Care Provider Non-Staff Specialty: Medical Address: [address], [place], [address] Email: Mingo Torres MD Attending Provider Non-Staff Referring Provider Specialty: Neurology Address: [address] [place], [address] Email: Plan Of Care PT-OP-T Assessment and Plan Start: 03/06/20 14:03 Freq: Status: Active Protocol: Document 03/06/20 14:08 MB (Rec: 03/06/20 15:38 MB [id number]) Physical Therapy Assessment Rehab Potential Rehabilitation Potential Good Evaluation Complexity Number of Personal Factors/Comorbidities 1-2 Number of Body Systems Impaired 1-2 Clinical Presentation at Evaluation Evolving Impairments Impairments Balance,Coordination, Functional Activities,Gait, Posture,Soft Tissue Mobility Goals 5 Senior Living Goal (LTG) Pt will perform BIG exercises with appropriate amplitude and effort with I to improve posture and gait by 04/10/2020. LTG Duration 4 weeks 4 Criminal Justice Teacher Goal (LTG) Pt will perform 20 reps sit to stand without UE support in 30 sec to improve functional mobility and leg strength by . LTG Duration 4 weeks 3 Senior Living Goal (LTG) Pt will demonstrate donning and doffing gait belt through legs standing on right leg and then standing on left leg to improve balance with dressing by 04/10/2020. LTG Duration 4 weeks 2 Criminal Justice Teacher Goal (LTG) Pt will gait train 2270 feet in 6 minutes to allow him to return to prior 3 mile walk in 42 minutes by 04/10/2020. LTG Duration 4 weeks 1 Senior Living Goal (LTG) Pt will present with FGA score of at least 27/30 to reflect improved balance and decreased fall risk by 04/10/2020. LTG Duration 4 weeks Assessment Summary Assessment Pt is an 84 y/o male presenting with 5-7 year diagnosis of PD. 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 He reports trouble with restless leg syndrome that affects his sleeping and that it takes him up to 2 hours to fall asleep. He notices that taking the evening dose of Ropinirole causes his legs to hurt worse. PT encourages pt to talk with doctor about this. Poor sleeping may affect overall physical health and response to BIG and LOUD therapies. Pt presents with postural changes , occ scuffing of feet with walking and decreased balance with stair training and FGA today. He will benefit from BIG training to improve foot clearance, gait speed, posture and quality of life. Physical Therapy Plan Frequency and Duration Frequency of Treatment 4x/Week Duration of Treatment 4 weeks Plan of Care Start Date 03/06/20 Plan of Care End Date 04/10/20 Therapeutic Interventions Therapeutic Interventions Balance Training,Coordination Training,Gait Training,Home Exercise Program,Neuromuscular Re-education,Patient/ Caregiver Education,Self-Care/ Home Management,Therapeutic Activities,Therapeutic Exercises Next Visit Focus/Plan Next Note Type Treatment Note Next Visit Plan Initiate BIG protocol exercises Plan of Care Dates Plan of Care Start Date 03/06/20 Plan of Care End Date 04/10/20 Electronically Signed by: Rand Huston PT 03/06/20 [id number] Please Sign and Return: I have reviewed this Plan of Care and certify that the skilled therapy services above are required to meet the patient?s needs. Physician Signature Date Printed Name and Credentials Clinical Instructor Signature Printed Name and Credentials
--- NOTE | 2020-03-10 15:38 | PT.OTN ---
Current Diagnoses Parkinson's disease (03/10/20) Ataxia, unspecified (03/10/20) Physical Therapy Treatment Note PT-OP-A Visit Information Start: 03/06/20 14:03 Freq: Status: Active Protocol: Document 03/10/20 14:00 MB (Rec: 03/10/20 15:37 MB [id number]) Out-Patient Physical Therapy Visit Information Visit Information Visit Type Treatment Note Visit Start Time 14:00 Visit Stop Time 15:10 Total Visit Minutes 70 Visit Number 2 PT-OP-B Current Condition Start: 03/06/20 14:03 Freq: Status: Active Protocol: Document 03/06/20 14:08 MB (Rec: 03/06/20 15:09 MB [id number]) Current Condition History of Current Condition Onset Date 5-7 years Current Complaints Decreased ability to think through math problems, right UE tremor History of Current Condition Pt reports that the first sign of his PD was right hand tremor and difficulty with performing math in his head. 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 He has trouble sleeping and has trouble falling asleep d/t restless legs. It can take up to a couple of hours to fall asleep. PMH: Tremor right UE and pt is right-handed, prostate and colon CA, colon resection, gallbladder disease, carpal tunnel surgery His biggest problem is his voice. He works out with weights each day. He has 5 lb free weights. He can stand on his left foot to get on shorts but cannot stand on his right foot to get on shorts. He reports problems with his Ropininrole that he takes at night. He states that his legs get worse as far as aching after taking it. Pt drinks 2.5 cups of coffee a day, one beer and 60 oz of water. Pt denies falls. He is driving . He was up on ladders cleaning gutters but was told by doctor not to do so. He wonders about using a chain saw. There are two steps to enter to get into the house without a rail. Prior Treatments and Tests PT in the past and it was not very helpful Treatment Goals Patient/Caregiver Goals To be able to maintain function and normalcy. His voice is is biggest problem. He would like to get back to 3 mile course of walking in 42 minutes. He would like to get back to walking 2 miles on the beach. He would like to be able to stand on his right leg to put on shorts. Prior Functional Status Baseline Function- ADL's Independent Baseline Function- Mobility Independent Baseline Function- Gait I PT-OP-C Subjective Start: 03/06/20 14:03 Freq: Status: Active Protocol: Document 03/10/20 14:00 MB (Rec: 03/10/20 15:37 MB [id number]) OP-PT Subjective Patient Comments Patient Comments Functional Tasks Recording Form goals updated per pt: 1) Standing on left leg to put on shorts 2) Walk 3 mi in 42 min 3) Walk on the beach 4) Increase reps on weights ( free weights with arms) 5) Diversify leg exercises 6) Increase number of push-ups PT-OP-D Balance Start: 03/06/20 14:03 Freq: Status: Active Protocol: Document 03/06/20 14:08 MB (Rec: 03/06/20 15:38 MB [id number]) OP-PT Balance Assessment Sitting Balance Static Sitting Balance Ability Normal Dynamic Sitting Balance Ability Normal Standing Balance Static Standing Balance Ability Normal Dynamic Standing Balance Ability Normal Balance Tests Other Other Balance Tests Performed FGA score 25/30, indicating increased risk for falling 30 sec sit to stand without UE support: 15; two trials d/t pt not putting hips down on the mat with first trial Hamilton Fall Scale Copyright Permission PT-OP-G Mobility & Gait Start: 03/06/20 14:03 Freq: Status: Active Protocol: Document 03/06/20 14:08 MB (Rec: 03/06/20 15:38 MB [id number]) OP Gait Assessment Comments Gait Comments 6MWT 1626 feet. Pt has good gait speed, decreased arm swing and occ scuffing of lateral sides of feet. Decreased confidence with stairs without rail and pt takes time to adjust for descending steps PT-OP-J Posture/Palpation/Skin Start: 03/06/20 14:03 Freq: Status: Active Protocol: Document 03/06/20 14:08 MB (Rec: 03/06/20 15:39 MB [id number]) Posture Evaluation Comments Posture Comments Forward, flexed posture in sitting and standing PT-OP-M Strength Start: 03/06/20 14:03 Freq: Status: Active Protocol: Document 03/06/20 14:08 MB (Rec: 03/06/20 15:38 MB [id number]) Shoulder Strength Shoulder Manual Muscle Testing Left Flexion 5 Normal Right Flexion 5 Normal Elbow/Forearm Strength Elbow and Forearm Manual Muscle Testing Left Flexion (C6) 5 Normal Extension (C7) 5 Normal Right Flexion (C6) 5 Normal Extension (C7) 5 Normal Hip Strength Hip Manual Muscle Testing Left Flexion (L2) 5 Normal Right Flexion (L2) 5 Normal PT-OP-Q Treatments Start: 03/06/20 14:03 Freq: Status: Active Protocol: Document 03/10/20 14:00 MB (Rec: 03/10/20 15:37 MB [id number]) Therapeutic Exercises Sitting Exercises BIG sit to stand Reps/Minutes 8 Comments Cues to keep arms extended, abducted to 45 deg, palms up, fingers open Side to side Side bilateral Reps/Minutes Several trials, then 5 consective B Comments Trouble extending the back leg , greater on right Floor to ceiling Reps/Minutes Several trials, then 5 consecutive, 5' Comments Trouble extending right elbow, wrist, opening fingers, right sided PD/carpa Standing Exercises Sideways rock and reach Side bilateral Reps/Minutes Trials, then 5 reps Comments Limited thoracic rotation B, extensive tactile cues Forwards rock and reach Side bilateral Reps/Minutes Trials and then 8 Comments Trouble coordinating front toes up, back heel up Backwards step and reach Side bilateral Reps/Minutes Several trials, then 5 consecutive Comments Trouble shifting weight to hips and lifting front foot Sideways step and reach Side bilateral Reps/Minutes 8 Comments Trouble with right arm extension, palm up and fingers wide Forward step and reach Side bilateral Reps/Minutes 8 Comments Cues to start BIG feet and make sure front foot comes back even PT-OP-T Assessment and Plan Start: 03/06/20 14:03 Freq: Status: Active Protocol: Document 03/10/20 14:00 MB (Rec: 03/10/20 15:37 [id number]) Physical Therapy Assessment Rehab Potential Rehabilitation Potential Good Evaluation Complexity Number of Personal Factors/Comorbidities 1-2 Number of Body Systems Impaired 1-2 Clinical Presentation at Evaluation Evolving Impairments Impairments Balance,Coordination, Functional Activities,Gait, Posture,Soft Tissue Mobility Goals 5 Group Home Goal (LTG) Pt will perform BIG exercises with appropriate amplitude and effort with I to improve posture and gait by 04/10/2020. LTG Duration 4 weeks 4 Group Home Goal (LTG) Pt will perform 20 reps sit to stand without UE support in 30 sec to improve functional mobility and leg strength by . LTG Duration 4 weeks 3 [employer] Technical Assistant Goal (LTG) Pt will demonstrate donning and doffing gait belt through legs standing on right leg and then standing on left leg to improve balance with dressing by 04/10/2020. LTG Duration 4 weeks 2 Group Home Goal (LTG) Pt will gait train 2270 feet in 6 minutes to allow him to return to prior 3 mile walk in 42 minutes by 04/10/2020. LTG Duration 4 weeks 1 Group Home Goal (LTG) Pt will present with FGA score of at least 27/30 to reflect improved balance and decreased fall risk by 04/10/2020. LTG Duration 4 weeks Assessment Summary Assessment Pt has trouble coming up with more functional tasks that he wants to improve. He has exercise related goals. Will con't towards gait speed, walking on the beach and SLS to don shorts goals. Note, he states that he wants to work on standing on left leg. Extensive training and practice of BIG exercises today. Exercises performed outside. Pt requires demo, VCs , tactile cues and has most trouble with right wrist extension and BIG fingers ( this is tremor side and he had carpal tunnel sx), right hip and knee extension with seated side to side, coordination of feet and weight shift with backwards stepping, forwards rock and reach and rotation with sideways rock and reach. Con't with progression. Physical Therapy Plan Frequency and Duration Frequency of Treatment 4x/Week Duration of Treatment 4 weeks Plan of Care Start Date 03/06/20 Plan of Care End Date 04/10/20 Therapeutic Interventions Therapeutic Interventions Balance Training,Coordination Training,Gait Training,Home Exercise Program,Neuromuscular Re-education,Patient/ Caregiver Education,Self-Care/ Home Management,Therapeutic Activities,Therapeutic Exercises Next Visit Focus/Plan Next Note Type Treatment Note Next Visit Plan Review exercises, start BIG walking and functional task of SLS
--- NOTE | 2020-03-11 15:34 | PT.OTN ---
Current Diagnoses Parkinson's disease (03/11/20) Ataxia, unspecified (03/11/20) Physical Therapy Treatment Note PT-OP-A Visit Information Start: 03/06/20 14:03 Freq: Status: Active Protocol: Document 03/11/20 14:15 MB (Rec: 03/11/20 15:33 MB [id number]) Out-Patient Physical Therapy Visit Information Visit Information Visit Type Treatment Note Visit Start Time 14:15 Visit Stop Time 15:15 Total Visit Minutes 60 Visit Number 3 PT-OP-B Current Condition Start: 03/06/20 14:03 Freq: Status: Active Protocol: Document 03/06/20 14:08 MB (Rec: 03/06/20 15:09 MB [id number]) Current Condition History of Current Condition Onset Date 5-7 years Current Complaints Decreased ability to think through math problems, right UE tremor History of Current Condition Pt reports that the first sign of his PD was right hand tremor and difficulty with performing math in his head. 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 He has trouble sleeping and has trouble falling asleep d/t restless legs. It can take up to a couple of hours to fall asleep. PMH: Tremor right UE and pt is right-handed, prostate and colon CA, colon resection, gallbladder disease, carpal tunnel surgery His biggest problem is his voice. He works out with weights each day. He has 5 lb free weights. He can stand on his left foot to get on shorts but cannot stand on his right foot to get on shorts. He reports problems with his Ropininrole that he takes at night. He states that his legs get worse as far as aching after taking it. Pt drinks 2.5 cups of coffee a day, one beer and 60 oz of water. Pt denies falls. He is driving . He was up on ladders cleaning gutters but was told by doctor not to do so. He wonders about using a chain saw. There are two steps to enter to get into the house without a rail. Prior Treatments and Tests PT in the past and it was not very helpful Treatment Goals Patient/Caregiver Goals To be able to maintain function and normalcy. His voice is is biggest problem. He would like to get back to 3 mile course of walking in 42 minutes. He would like to get back to walking 2 miles on the beach. He would like to be able to stand on his right leg to put on shorts. Prior Functional Status Baseline Function- ADL's Independent Baseline Function- Mobility Independent Baseline Function- Gait I PT-OP-C Subjective Start: 03/06/20 14:03 Freq: Status: Active Protocol: Document 03/11/20 14:15 MB (Rec: 03/11/20 15:33 MB [id number]) OP-PT Subjective Patient Comments Patient Comments Pt had trouble with rocking exercises. PT-OP-D Balance Start: 03/06/20 14:03 Freq: Status: Active Protocol: Document 03/06/20 14:08 MB (Rec: 03/06/20 15:38 MB [id number]) OP-PT Balance Assessment Sitting Balance Static Sitting Balance Ability Normal Dynamic Sitting Balance Ability Normal Standing Balance Static Standing Balance Ability Normal Dynamic Standing Balance Ability Normal Balance Tests Other Other Balance Tests Performed FGA score 25/30, indicating increased risk for falling 30 sec sit to stand without UE support: 15; two trials d/t pt not putting hips down on the mat with first trial Hamilton Fall Scale Copyright Permission PT-OP-G Mobility & Gait Start: 03/06/20 14:03 Freq: Status: Active Protocol: Document 03/06/20 14:08 MB (Rec: 03/06/20 15:38 MB [id number]) OP Gait Assessment Comments Gait Comments 6MWT 1626 feet. Pt has good gait speed, decreased arm swing and occ scuffing of lateral sides of feet. Decreased confidence with stairs without rail and pt takes time to adjust for descending steps PT-OP-J Posture/Palpation/Skin Start: 03/06/20 14:03 Freq: Status: Active Protocol: Document 03/06/20 14:08 MB (Rec: 03/06/20 15:39 MB [id number]) Posture Evaluation Comments Posture Comments Forward, flexed posture in sitting and standing PT-OP-M Strength Start: 03/06/20 14:03 Freq: Status: Active Protocol: Document 03/06/20 14:08 MB (Rec: 03/06/20 15:38 MB [id number]) Shoulder Strength Shoulder Manual Muscle Testing Left Flexion 5 Normal Right Flexion 5 Normal Elbow/Forearm Strength Elbow and Forearm Manual Muscle Testing Left Flexion (C6) 5 Normal Extension (C7) 5 Normal Right Flexion (C6) 5 Normal Extension (C7) 5 Normal Hip Strength Hip Manual Muscle Testing Left Flexion (L2) 5 Normal Right Flexion (L2) 5 Normal PT-OP-Q Treatments Start: 03/06/20 14:03 Freq: Status: Active Protocol: Document 03/11/20 14:15 MB (Rec: 03/11/20 15:33 MB [id number]) Therapeutic Exercises Sitting Exercises BIG sit to stand Reps/Minutes 10 Comments Cues for BIG legs, counting, slapping thighs Side to side Side bilateral Reps/Minutes 8 Comments Trouble with pivot and extension back leg Floor to ceiling Reps/Minutes 10 Comments Cues for BIG legs, counting, slapping thighs Standing Exercises Sideways rock and reach Standing Exercise Name Broke down pivot on toes snuffing out cigarette Side bilateral Reps/Minutes 6 reps Comments Difficulty pivoting on back foot and arm position Forwards rock and reach Standing Exercise Name Broke down front toes up, back heel up Side bilateral Reps/Minutes Many trials, then 8 Comments Extensive work for this one today Backwards step and reach Standing Exercise Name Broke down: front toes up, wrists up and fingers open, head/hips/hands down Side bilateral Reps/Minutes Several trials, then 5 reps Comments See above break down Sideways step and reach Side bilateral Reps/Minutes 8 Comments Trouble right arm extension, elevation, BIG fingers Forward step and reach Side bilateral Reps/Minutes 10 Comments Cues to start BIG feet and to bring foot back flush to static foot PT-OP-T Assessment and Plan Start: 03/06/20 14:03 Freq: Status: Active Protocol: Document 03/11/20 14:15 MB (Rec: 03/11/20 15:33 MB [id number]) Physical Therapy Assessment Rehab Potential Rehabilitation Potential Good Evaluation Complexity Number of Personal Factors/Comorbidities 1-2 Number of Body Systems Impaired 1-2 Clinical Presentation at Evaluation Evolving Impairments Impairments Balance,Coordination, Functional Activities,Gait, Posture,Soft Tissue Mobility Goals 5 Snf Goal (LTG) Pt will perform BIG exercises with appropriate amplitude and effort with I to improve posture and gait by 04/10/2020. LTG Duration 4 weeks 4 Bessemer Converter Blower Goal (LTG) Pt will perform 20 reps sit to stand without UE support in 30 sec to improve functional mobility and leg strength by . LTG Duration 4 weeks 3 Snf Goal (LTG) Pt will demonstrate donning and doffing gait belt through legs standing on right leg and then standing on left leg to improve balance with dressing by 04/10/2020. LTG Duration 4 weeks 2 Snf Goal (LTG) Pt will gait train 2270 feet in 6 minutes to allow him to return to prior 3 mile walk in 42 minutes by 04/10/2020. LTG Duration 4 weeks 1 Snf Goal (LTG) Pt will present with FGA score of at least 27/30 to reflect improved balance and decreased fall risk by 04/10/2020. LTG Duration 4 weeks Assessment Summary Assessment Pt with trouble with several things today: rocking with front toes up and back heel up , pivot on toes for rock to side, getting BIG stance in sitting and standing and bring foot back equal to stationary foot. Extensive time breaking down the exercises into components and then performing exercises. Physical Therapy Plan Frequency and Duration Frequency of Treatment 4x/Week Duration of Treatment 4 weeks Plan of Care Start Date 03/06/20 Plan of Care End Date 04/10/20 Therapeutic Interventions Therapeutic Interventions Balance Training,Coordination Training,Gait Training,Home Exercise Program,Neuromuscular Re-education,Patient/ Caregiver Education,Self-Care/ Home Management,Therapeutic Activities,Therapeutic Exercises Next Visit Focus/Plan Next Note Type Treatment Note Next Visit Plan Review exercises, start BIG walking and functional task of SLS
--- NOTE | 2020-03-12 15:33 | PT.OTN ---
Current Diagnoses Parkinson's disease (03/12/20) Ataxia, unspecified (03/12/20) Physical Therapy Treatment Note PT-OP-A Visit Information Start: 03/06/20 14:03 Freq: Status: Active Protocol: Document 03/12/20 15:14 AW (Rec: 03/12/20 15:32 AW [email or web address]) Out-Patient Physical Therapy Visit Information Visit Information Visit Type Treatment Note Visit Start Time 14:10 Visit Stop Time 15:12 Total Visit Minutes 62 Visit Number 4 PT-OP-B Current Condition Start: 03/06/20 14:03 Freq: Status: Active Protocol: Document 03/06/20 14:08 MB (Rec: 03/06/20 15:09 MB [id number]) Current Condition History of Current Condition Onset Date 5-7 years Current Complaints Decreased ability to think through math problems, right UE tremor History of Current Condition Pt reports that the first sign of his PD was right hand tremor and difficulty with performing math in his head. 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 He has trouble sleeping and has trouble falling asleep d/t restless legs. It can take up to a couple of hours to fall asleep. PMH: Tremor right UE and pt is right-handed, prostate and colon CA, colon resection, gallbladder disease, carpal tunnel surgery His biggest problem is his voice. He works out with weights each day. He has 5 lb free weights. He can stand on his left foot to get on shorts but cannot stand on his right foot to get on shorts. He reports problems with his Ropininrole that he takes at night. He states that his legs get worse as far as aching after taking it. Pt drinks 2.5 cups of coffee a day, one beer and 60 oz of water. Pt denies falls. He is driving . He was up on ladders cleaning gutters but was told by doctor not to do so. He wonders about using a chain saw. There are two steps to enter to get into the house without a rail. Prior Treatments and Tests PT in the past and it was not very helpful Treatment Goals Patient/Caregiver Goals To be able to maintain function and normalcy. His voice is is biggest problem. He would like to get back to 3 mile course of walking in 42 minutes. He would like to get back to walking 2 miles on the beach. He would like to be able to stand on his right leg to put on shorts. Prior Functional Status Baseline Function- ADL's Independent Baseline Function- Mobility Independent Baseline Function- Gait I PT-OP-C Subjective Start: 03/06/20 14:03 Freq: Status: Active Protocol: Document 03/12/20 15:14 AW (Rec: 03/12/20 15:32 AW [id number]) OP-PT Subjective Patient Comments Patient Comments Ridge already did his maximal daily exercises this morning. He feels his confidence with them is increasing PT-OP-D Balance Start: 03/06/20 14:03 Freq: Status: Active Protocol: Document 03/06/20 14:08 MB (Rec: 03/06/20 15:38 MB [id number]) OP-PT Balance Assessment Sitting Balance Static Sitting Balance Ability Normal Dynamic Sitting Balance Ability Normal Standing Balance Static Standing Balance Ability Normal Dynamic Standing Balance Ability Normal Balance Tests Other Other Balance Tests Performed FGA score 25/30, indicating increased risk for falling 30 sec sit to stand without UE support: 15; two trials d/t pt not putting hips down on the mat with first trial Hamilton Fall Scale Copyright Permission PT-OP-G Mobility & Gait Start: 03/06/20 14:03 Freq: Status: Active Protocol: Document 03/06/20 14:08 MB (Rec: 03/06/20 15:38 MB [id number]) OP Gait Assessment Comments Gait Comments 6MWT 1626 feet. Pt has good gait speed, decreased arm swing and occ scuffing of lateral sides of feet. Decreased confidence with stairs without rail and pt takes time to adjust for descending steps PT-OP-J Posture/Palpation/Skin Start: 03/06/20 14:03 Freq: Status: Active Protocol: Document 03/06/20 14:08 MB (Rec: 03/06/20 15:39 MB [id number]) Posture Evaluation Comments Posture Comments Forward, flexed posture in sitting and standing PT-OP-M Strength Start: 03/06/20 14:03 Freq: Status: Active Protocol: Document 03/06/20 14:08 MB (Rec: 03/06/20 15:38 MB [id number]) Shoulder Strength Shoulder Manual Muscle Testing Left Flexion 5 Normal Right Flexion 5 Normal Elbow/Forearm Strength Elbow and Forearm Manual Muscle Testing Left Flexion (C6) 5 Normal Extension (C7) 5 Normal Right Flexion (C6) 5 Normal Extension (C7) 5 Normal Hip Strength Hip Manual Muscle Testing Left Flexion (L2) 5 Normal Right Flexion (L2) 5 Normal PT-OP-Q Treatments Start: 03/06/20 14:03 Freq: Status: Active Protocol: Document 03/12/20 15:14 AW (Rec: 03/12/20 15:32 AW [id number]) Therapeutic Exercises Sitting Exercises BIG sit to stand Equipment Used large black mat lowest position, black oval foam pad Reps/Minutes 6 + 6 Comments 1 set from black table; 1 set from same height with black foam under feet Side to side Side bilateral Reps/Minutes 8 each side Comments cues for upright posture and for long line fingertips to back foot Floor to ceiling Reps/Minutes 10 Comments cues for big hands, crisp movement, movement with intention Standing Exercises Sideways rock and reach Side bilateral Reps/Minutes 10 each side Comments improved rotation today with cues to pivot on back foot Forwards rock and reach Side bilateral Reps/Minutes 10 each side Comments manual cues to keep front heel down with fwd rock Backwards step and reach Side bilateral Reps/Minutes 10 reps each side Comments cues for BIG weight shift and increased back arm swing Sideways step and reach Side bilateral Reps/Minutes 10 Comments cues for BIG fingers and trunk rotation Forward step and reach Side bilateral Reps/Minutes 10 Comments cues for increased hip flex/ foot clearance with return step Therapeutic Activity Therapeutic Activity SLS Name SLS Reps/Minutes 2 minutes Comments In preparation for possible hierarchy task of lucia dumont. Pt able to stand on left leg ~6 seconds with fingertip support on railing Gait Training Gait Activity BIG walking Description BIG walking Level of Assistance SBA Surface paved, outside Distance/Duration 10 minutes Treatment Focus right arm swing Comments Pt able to initiate right arm swing but requires frequent cues to maintain focus. Even with increased amplitude in forward swing, pt needs cues for bigger backward swing. Self-Care/Home Management Treatment Education Patient Education Home Exercise Program Other Education Pt to complete daily exercises at home in the AM. Pt also assigned BIG walking at home today at least 5 minutes to focus on arm swing and then random check-ins with himself when walking to and from the bathroom. PT-OP-T Assessment and Plan Start: 03/06/20 14:03 Freq: Status: Active Protocol: Document 03/12/20 15:14 AW (Rec: 03/12/20 15:32 AW [email or web address]) Physical Therapy Assessment Rehab Potential Rehabilitation Potential Good Evaluation Complexity Number of Personal Factors/Comorbidities 1-2 Number of Body Systems Impaired 1-2 Clinical Presentation at Evaluation Evolving Impairments Impairments Balance,Coordination, Functional Activities,Gait, Posture,Soft Tissue Mobility Goals 5 Longterm Goal (LTG) Pt will perform BIG exercises with appropriate amplitude and effort with I to improve posture and gait by 04/10/2020. LTG Duration 4 weeks 4 Longterm Goal (LTG) Pt will perform 20 reps sit to stand without UE support in 30 sec to improve functional mobility and leg strength by . LTG Duration 4 weeks 3 Signal Worker Goal (LTG) Pt will demonstrate donning and doffing gait belt through legs standing on right leg and then standing on left leg to improve balance with dressing by 04/10/2020. LTG Duration 4 weeks 2 Longterm Goal (LTG) Pt will gait train 2270 feet in 6 minutes to allow him to return to prior 3 mile walk in 42 minutes by 04/10/2020. LTG Duration 4 weeks 1 Longterm Goal (LTG) Pt will present with FGA score of at least 27/30 to reflect improved balance and decreased fall risk by 04/10/2020. LTG Duration 4 weeks Assessment Summary Assessment Pt improving in confidence today. He is stimulable in BIG walking with cues for increased arm swing but requires uninterrupted attention in order to maintain . Pt assigned BIG walking homework today. Physical Therapy Plan Frequency and Duration Frequency of Treatment 4x/Week Duration of Treatment 4 weeks Plan of Care Start Date 03/06/20 Plan of Care End Date 04/10/20 Therapeutic Interventions Therapeutic Interventions Balance Training,Coordination Training,Gait Training,Home Exercise Program,Neuromuscular Re-education,Patient/ Caregiver Education,Self-Care/ Home Management,Therapeutic Activities,Therapeutic Exercises Next Visit Focus/Plan Next Note Type Treatment Note Next Visit Plan Progress BIG walking and SLS
--- NOTE | 2020-03-13 15:42 | PT.OTN ---
Current Diagnoses Parkinson's disease (03/13/20) Ataxia, unspecified (03/13/20) Physical Therapy Treatment Note PT-OP-A Visit Information Start: 03/06/20 14:03 Freq: Status: Active Protocol: Document 03/13/20 14:15 MB (Rec: 03/13/20 15:26 MB [id number]) Out-Patient Physical Therapy Visit Information Visit Information Visit Type Treatment Note Visit Start Time 14:15 Visit Stop Time 15:08 Total Visit Minutes 53 Visit Number 5 PT-OP-B Current Condition Start: 03/06/20 14:03 Freq: Status: Active Protocol: Document 03/06/20 14:08 MB (Rec: 03/06/20 15:09 MB [id number]) Current Condition History of Current Condition Onset Date 5-7 years Current Complaints Decreased ability to think through math problems, right UE tremor History of Current Condition Pt reports that the first sign of his PD was right hand tremor and difficulty with performing math in his head. 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 He has trouble sleeping and has trouble falling asleep d/t restless legs. It can take up to a couple of hours to fall asleep. PMH: Tremor right UE and pt is right-handed, prostate and colon CA, colon resection, gallbladder disease, carpal tunnel surgery His biggest problem is his voice. He works out with weights each day. He has 5 lb free weights. He can stand on his left foot to get on shorts but cannot stand on his right foot to get on shorts. He reports problems with his Ropininrole that he takes at night. He states that his legs get worse as far as aching after taking it. Pt drinks 2.5 cups of coffee a day, one beer and 60 oz of water. Pt denies falls. He is driving . He was up on ladders cleaning gutters but was told by doctor not to do so. He wonders about using a chain saw. There are two steps to enter to get into the house without a rail. Prior Treatments and Tests PT in the past and it was not very helpful Treatment Goals Patient/Caregiver Goals To be able to maintain function and normalcy. His voice is is biggest problem. He would like to get back to 3 mile course of walking in 42 minutes. He would like to get back to walking 2 miles on the beach. He would like to be able to stand on his right leg to put on shorts. Prior Functional Status Baseline Function- ADL's Independent Baseline Function- Mobility Independent Baseline Function- Gait I PT-OP-C Subjective Start: 03/06/20 14:03 Freq: Status: Active Protocol: Document 03/13/20 14:15 MB (Rec: 03/13/20 15:26 MB [id number]) OP-PT Subjective Patient Comments Patient Comments Pt performed HEP this morning. He brings in sweatshirt and jacket and states that sweatshirt is harder to put on . PT-OP-D Balance Start: 03/06/20 14:03 Freq: Status: Active Protocol: Document 03/06/20 14:08 MB (Rec: 03/06/20 15:38 MB [id number]) OP-PT Balance Assessment Sitting Balance Static Sitting Balance Ability Normal Dynamic Sitting Balance Ability Normal Standing Balance Static Standing Balance Ability Normal Dynamic Standing Balance Ability Normal Balance Tests Other Other Balance Tests Performed FGA score 25/30, indicating increased risk for falling 30 sec sit to stand without UE support: 15; two trials d/t pt not putting hips down on the mat with first trial Hamilton Fall Scale Copyright Permission PT-OP-G Mobility & Gait Start: 03/06/20 14:03 Freq: Status: Active Protocol: Document 03/06/20 14:08 MB (Rec: 03/06/20 15:38 MB [id number]) OP Gait Assessment Comments Gait Comments 6MWT 1626 feet. Pt has good gait speed, decreased arm swing and occ scuffing of lateral sides of feet. Decreased confidence with stairs without rail and pt takes time to adjust for descending steps PT-OP-J Posture/Palpation/Skin Start: 03/06/20 14:03 Freq: Status: Active Protocol: Document 03/06/20 14:08 MB (Rec: 03/06/20 15:39 MB [id number]) Posture Evaluation Comments Posture Comments Forward, flexed posture in sitting and standing PT-OP-M Strength Start: 03/06/20 14:03 Freq: Status: Active Protocol: Document 03/06/20 14:08 MB (Rec: 03/06/20 15:38 MB [id number]) Shoulder Strength Shoulder Manual Muscle Testing Left Flexion 5 Normal Right Flexion 5 Normal Elbow/Forearm Strength Elbow and Forearm Manual Muscle Testing Left Flexion (C6) 5 Normal Extension (C7) 5 Normal Right Flexion (C6) 5 Normal Extension (C7) 5 Normal Hip Strength Hip Manual Muscle Testing Left Flexion (L2) 5 Normal Right Flexion (L2) 5 Normal PT-OP-Q Treatments Start: 03/06/20 14:03 Freq: Status: Active Protocol: Document 03/13/20 14:15 MB (Rec: 03/13/20 15:38 MB [id number]) Therapeutic Exercises Sitting Exercises BIG sit to stand Reps/Minutes 8 Comments Mesh chair outside on concrete Side to side Side bilateral Reps/Minutes 8 Comments Cues for BIG stance and hands, upright trunk, and back leg extension Floor to ceiling Reps/Minutes 10 Comments Cues for BIG stance and hands and to count out loud Standing Exercises Sideways rock and reach Standing Exercise Name Again, broke down pivot on toes snuffing out cigarette Side bilateral Reps/Minutes 6 reps Comments Difficulty pivoting on back foot and arm position (hands up and BIG) Forwards rock and reach Side bilateral Reps/Minutes 8 Comments Cues for BIG stance, broke down rocking feet first Backwards step and reach Side bilateral Reps/Minutes 8 Sideways step and reach Side bilateral Reps/Minutes 8 Comments Performed better today with stance and posture Forward step and reach Side bilateral Reps/Minutes 10 Comments Cues for BIG stance and bringing foot all the way back Therapeutic Activity Therapeutic Activity Donning sweatshirt Comments Requires 40 sec to don and so pt to start practicing at home for one of functional exercises/activities Bend down to pull up fake pants Comments Forward flexion and then pull pants up x5 reps, added to functional activities for home Hip flexion october to prepare for donning shorts while standing on one leg Comments 5 reps each leg, added to functional activities for home SLS Comments Right and Left legs with chair beside pt and opposite leg with hip and knee flexion 90/ 90: right leg 10 sec and left leg 30 sec and pt to perform at home PT-OP-T Assessment and Plan Start: 03/06/20 14:03 Freq: Status: Active Protocol: Document 03/13/20 14:15 MB (Rec: 03/13/20 15:26 MB [id number]) Physical Therapy Assessment Rehab Potential Rehabilitation Potential Good Evaluation Complexity Number of Personal Factors/Comorbidities 1-2 Number of Body Systems Impaired 1-2 Clinical Presentation at Evaluation Evolving Impairments Impairments Balance,Coordination, Functional Activities,Gait, Posture,Soft Tissue Mobility Goals 5 Half-Way Goal (LTG) Pt will perform BIG exercises with appropriate amplitude and effort with I to improve posture and gait by 04/10/2020. LTG Duration 4 weeks 4 Professor Of Historical Theology Goal (LTG) Pt will perform 20 reps sit to stand without UE support in 30 sec to improve functional mobility and leg strength by . LTG Duration 4 weeks 3 Half-Way Goal (LTG) Pt will demonstrate donning and doffing gait belt through legs standing on right leg and then standing on left leg to improve balance with dressing by 04/10/2020. LTG Duration 4 weeks 2 Half-Way Goal (LTG) Pt will gait train 2270 feet in 6 minutes to allow him to return to prior 3 mile walk in 42 minutes by 04/10/2020. LTG Duration 4 weeks 1 Professor Of Historical Theology Goal (LTG) Pt will present with FGA score of at least 27/30 to reflect improved balance and decreased fall risk by 04/10/2020. LTG Duration 4 weeks Assessment Summary Assessment Pt con't to require cues and practice with BIG exercises and PT reviews break down of exercises again with pt today. Rocking, BIG stance, BIG hands and pivot for side rock and reach are the most difficult. Extensive time to ensure answered questions and good form with exercises. Added 4 functional activities for home: SLS, large march and pull up fake pants (flexion to extension) to prepare for donning shorts while standing on 1 leg. Pt also to practice donning sweatshirt. Progress BIG walking. Physical Therapy Plan Frequency and Duration Frequency of Treatment 4x/Week Duration of Treatment 4 weeks Plan of Care Start Date 03/06/20 Plan of Care End Date 04/10/20 Therapeutic Interventions Therapeutic Interventions Balance Training,Coordination Training,Gait Training,Home Exercise Program,Neuromuscular Re-education,Patient/ Caregiver Education,Self-Care/ Home Management,Therapeutic Activities,Therapeutic Exercises Next Visit Focus/Plan Next Note Type Treatment Note Next Visit Plan Progress BIG walking, time SLS and donning sweatshirt. Progress to walking on gravel to mimic beach walking.
--- NOTE | 2020-03-17 15:22 | PT.OTN ---
Current Diagnoses Parkinson's disease (03/17/20) Ataxia, unspecified (03/17/20) Physical Therapy Treatment Note PT-OP-A Visit Information Start: 03/06/20 14:03 Freq: Status: Active Protocol: Document 03/17/20 15:08 MB (Rec: 03/17/20 15:22 MB [id number]) Out-Patient Physical Therapy Visit Information Visit Information Visit Type Treatment Note Visit Note Pt fatigues in legs and feels pressure in his left greater than right arch today with gait outside on gravel, so shortened gait and therapeutic activity today. Visit Start Time 14:10 Visit Stop Time 15:05 Total Visit Minutes 55 Visit Number 6 PT-OP-B Current Condition Start: 03/06/20 14:03 Freq: Status: Active Protocol: Document 03/06/20 14:08 MB (Rec: 03/06/20 15:09 MB [id number]) Current Condition History of Current Condition Onset Date 5-7 years Current Complaints Decreased ability to think through math problems, right UE tremor History of Current Condition Pt reports that the first sign of his PD was right hand tremor and difficulty with performing math in his head. 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 He has trouble sleeping and has trouble falling asleep d/t restless legs. It can take up to a couple of hours to fall asleep. PMH: Tremor right UE and pt is right-handed, prostate and colon CA, colon resection, gallbladder disease, carpal tunnel surgery His biggest problem is his voice. He works out with weights each day. He has 5 lb free weights. He can stand on his left foot to get on shorts but cannot stand on his right foot to get on shorts. He reports problems with his Ropininrole that he takes at night. He states that his legs get worse as far as aching after taking it. Pt drinks 2.5 cups of coffee a day, one beer and 60 oz of water. Pt denies falls. He is driving . He was up on ladders cleaning gutters but was told by doctor not to do so. He wonders about using a chain saw. There are two steps to enter to get into the house without a rail. Prior Treatments and Tests PT in the past and it was not very helpful Treatment Goals Patient/Caregiver Goals To be able to maintain function and normalcy. His voice is is biggest problem. He would like to get back to 3 mile course of walking in 42 minutes. He would like to get back to walking 2 miles on the beach. He would like to be able to stand on his right leg to put on shorts. Prior Functional Status Baseline Function- ADL's Independent Baseline Function- Mobility Independent Baseline Function- Gait I PT-OP-C Subjective Start: 03/06/20 14:03 Freq: Status: Active Protocol: Document 03/17/20 15:08 MB (Rec: 03/17/20 15:22 MB [id number]) OP-PT Subjective Patient Comments Patient Comments Pt states that he spends up to an hour doing exercises at home. He stops and then starts again if he gets exercises wrong. PT-OP-D Balance Start: 03/06/20 14:03 Freq: Status: Active Protocol: Document 03/06/20 14:08 MB (Rec: 03/06/20 15:38 MB [id number]) OP-PT Balance Assessment Sitting Balance Static Sitting Balance Ability Normal Dynamic Sitting Balance Ability Normal Standing Balance Static Standing Balance Ability Normal Dynamic Standing Balance Ability Normal Balance Tests Other Other Balance Tests Performed FGA score 25/30, indicating increased risk for falling 30 sec sit to stand without UE support: 15; two trials d/t pt not putting hips down on the mat with first trial Hamilton Fall Scale Copyright Permission PT-OP-G Mobility & Gait Start: 03/06/20 14:03 Freq: Status: Active Protocol: Document 03/06/20 14:08 MB (Rec: 03/06/20 15:38 MB [id number]) OP Gait Assessment Comments Gait Comments 6MWT 1626 feet. Pt has good gait speed, decreased arm swing and occ scuffing of lateral sides of feet. Decreased confidence with stairs without rail and pt takes time to adjust for descending steps PT-OP-J Posture/Palpation/Skin Start: 03/06/20 14:03 Freq: Status: Active Protocol: Document 03/06/20 14:08 MB (Rec: 03/06/20 15:39 MB [id number]) Posture Evaluation Comments Posture Comments Forward, flexed posture in sitting and standing PT-OP-M Strength Start: 03/06/20 14:03 Freq: Status: Active Protocol: Document 03/06/20 14:08 MB (Rec: 03/06/20 15:38 MB [id number]) Shoulder Strength Shoulder Manual Muscle Testing Left Flexion 5 Normal Right Flexion 5 Normal Elbow/Forearm Strength Elbow and Forearm Manual Muscle Testing Left Flexion (C6) 5 Normal Extension (C7) 5 Normal Right Flexion (C6) 5 Normal Extension (C7) 5 Normal Hip Strength Hip Manual Muscle Testing Left Flexion (L2) 5 Normal Right Flexion (L2) 5 Normal PT-OP-Q Treatments Start: 03/06/20 14:03 Freq: Status: Active Protocol: Document 03/17/20 15:08 MB (Rec: 03/17/20 15:22 MB [id number]) Therapeutic Exercises Sitting Exercises BIG sit to stand Reps/Minutes 8 Comments Mesh chair outside on concrete , cues to open up hands/BIG arm forward Side to side Side bilateral Reps/Minutes 8 Comments Cues for BIG stance and hands, upright trunk, and back leg extension Floor to ceiling Reps/Minutes 10 Comments No cues needed today Standing Exercises Sideways rock and reach Standing Exercise Name Re-ed on not stepping, only pivot Side bilateral Reps/Minutes 8 reps Comments Trouble with arm movement and pivot Forwards rock and reach Side bilateral Reps/Minutes 10 Comments Cues for BIG stance, much better rocking today Backwards step and reach Side bilateral Reps/Minutes 8 Comments Much improved today, demo for hands Sideways step and reach Side bilateral Reps/Minutes 8 Comments Cues BIG hands Forward step and reach Side bilateral Reps/Minutes 10 Comments Cues for BIG stance and increased flexion hip coming back Therapeutic Activity Therapeutic Activity Bend down to pull up fake pants Comments 2 reps today, pt very fatigued after 15' gait outside on pavement and gravel Hip flexion october to prepare for donning shorts while standing on one leg Comments 5 reps B today, ed on hip flexion SLS Comments Pt with increased difficulty B after gait: requires 3 trials each leg before he can get into SLS with opposite hip 90 deg flexion: left leg SLSx2 11 sec; right x2 13 sec Gait Training Gait Activity BIG walking Description BIG walking Level of Assistance SBA Surface paved and gravel outside, changing sidewalk Distance/Duration 15' Treatment Focus Right arm swing, Long and BIG steps, BIG right hand Comments Pt requires 3 rest breaks with walking, resting in shade for several minutes. Pt does provide water. He fatigues but does perform BIG walking with good form several trials for up to 1' before posture returns small Self-Care/Home Management Treatment Education Other Education Pt to add donning corduroy shirt or sweatshirt to therapeutic/functional exercises at home PT-OP-T Assessment and Plan Start: 03/06/20 14:03 Freq: Status: Active Protocol: Document 03/17/20 15:08 MB (Rec: 03/17/20 15:22 MB [id number]) Physical Therapy Assessment Rehab Potential Rehabilitation Potential Good Evaluation Complexity Number of Personal Factors/Comorbidities 1-2 Number of Body Systems Impaired 1-2 Clinical Presentation at Evaluation Evolving Impairments Impairments Balance,Coordination, Functional Activities,Gait, Posture,Soft Tissue Mobility Goals 5 Box Toe Stitcher Goal (LTG) Pt will perform BIG exercises with appropriate amplitude and effort with I to improve posture and gait by 04/10/2020. LTG Duration 4 weeks 4 Box Toe Stitcher Goal (LTG) Pt will perform 20 reps sit to stand without UE support in 30 sec to improve functional mobility and leg strength by . LTG Duration 4 weeks 3 Fdc Goal (LTG) Pt will demonstrate donning and doffing gait belt through legs standing on right leg and then standing on left leg to improve balance with dressing by 04/10/2020. LTG Duration 4 weeks 2 Fdc Goal (LTG) Pt will gait train 2270 feet in 6 minutes to allow him to return to prior 3 mile walk in 42 minutes by 04/10/2020. LTG Duration 4 weeks 1 Box Toe Stitcher Goal (LTG) Pt will present with FGA score of at least 27/30 to reflect improved balance and decreased fall risk by 04/10/2020. LTG Duration 4 weeks Assessment Summary Assessment Pt performs sit to stand repeatedly incorrect today, using backwards step hands and not open and forwards hands when up. Multiple trials to try to re-train. BIG walking outside on uneven terrain tiring today, the heat is up about 10 deg. Provided two cups of water with treatment. Con't per protocol, working on BIG posture and movements. His step length with exercises is better today. Physical Therapy Plan Frequency and Duration Frequency of Treatment 4x/Week Duration of Treatment 4 weeks Plan of Care Start Date 03/06/20 Plan of Care End Date 04/10/20 Therapeutic Interventions Therapeutic Interventions Balance Training,Coordination Training,Gait Training,Home Exercise Program,Neuromuscular Re-education,Patient/ Caregiver Education,Self-Care/ Home Management,Therapeutic Activities,Therapeutic Exercises Next Visit Focus/Plan Next Note Type Treatment Note Next Visit Plan Progress BIG walking, time SLS and donning sweatshirt. Progress walking on gravel to mimic beach walking.
--- NOTE | 2020-03-18 15:10 | PT.OTN ---
Current Diagnoses Parkinson's disease (03/18/20) Ataxia, unspecified (03/18/20) Physical Therapy Treatment Note PT-OP-A Visit Information Start: 03/06/20 14:03 Freq: Status: Active Protocol: Document 03/18/20 13:58 MB (Rec: 03/18/20 15:10 MB [id number]) Out-Patient Physical Therapy Visit Information Visit Information Visit Type Treatment Note Visit Start Time 13:56 Visit Stop Time 14:56 Total Visit Minutes 60 Visit Number 7 PT-OP-B Current Condition Start: 03/06/20 14:03 Freq: Status: Active Protocol: Document 03/06/20 14:08 MB (Rec: 03/06/20 15:09 MB [id number]) Current Condition History of Current Condition Onset Date 5-7 years Current Complaints Decreased ability to think through math problems, right UE tremor History of Current Condition Pt reports that the first sign of his PD was right hand tremor and difficulty with performing math in his head. 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 He has trouble sleeping and has trouble falling asleep d/t restless legs. It can take up to a couple of hours to fall asleep. PMH: Tremor right UE and pt is right-handed, prostate and colon CA, colon resection, gallbladder disease, carpal tunnel surgery His biggest problem is his voice. He works out with weights each day. He has 5 lb free weights. He can stand on his left foot to get on shorts but cannot stand on his right foot to get on shorts. He reports problems with his Ropininrole that he takes at night. He states that his legs get worse as far as aching after taking it. Pt drinks 2.5 cups of coffee a day, one beer and 60 oz of water. Pt denies falls. He is driving . He was up on ladders cleaning gutters but was told by doctor not to do so. He wonders about using a chain saw. There are two steps to enter to get into the house without a rail. Prior Treatments and Tests PT in the past and it was not very helpful Treatment Goals Patient/Caregiver Goals To be able to maintain function and normalcy. His voice is is biggest problem. He would like to get back to 3 mile course of walking in 42 minutes. He would like to get back to walking 2 miles on the beach. He would like to be able to stand on his right leg to put on shorts. Prior Functional Status Baseline Function- ADL's Independent Baseline Function- Mobility Independent Baseline Function- Gait I PT-OP-C Subjective Start: 03/06/20 14:03 Freq: Status: Active Protocol: Document 03/18/20 13:58 MB (Rec: 03/18/20 15:10 MB [id number]) OP-PT Subjective Patient Comments Patient Comments Pt states that he noticed the exercises took less time at home. PT-OP-D Balance Start: 03/06/20 14:03 Freq: Status: Active Protocol: Document 03/06/20 14:08 MB (Rec: 03/06/20 15:38 MB [id number]) OP-PT Balance Assessment Sitting Balance Static Sitting Balance Ability Normal Dynamic Sitting Balance Ability Normal Standing Balance Static Standing Balance Ability Normal Dynamic Standing Balance Ability Normal Balance Tests Other Other Balance Tests Performed FGA score 25/30, indicating increased risk for falling 30 sec sit to stand without UE support: 15; two trials d/t pt not putting hips down on the mat with first trial Hamilton Fall Scale Copyright Permission PT-OP-G Mobility & Gait Start: 03/06/20 14:03 Freq: Status: Active Protocol: Document 03/06/20 14:08 MB (Rec: 03/06/20 15:38 MB [id number]) OP Gait Assessment Comments Gait Comments 6MWT 1626 feet. Pt has good gait speed, decreased arm swing and occ scuffing of lateral sides of feet. Decreased confidence with stairs without rail and pt takes time to adjust for descending steps PT-OP-J Posture/Palpation/Skin Start: 03/06/20 14:03 Freq: Status: Active Protocol: Document 03/06/20 14:08 MB (Rec: 03/06/20 15:39 MB [id number]) Posture Evaluation Comments Posture Comments Forward, flexed posture in sitting and standing PT-OP-M Strength Start: 03/06/20 14:03 Freq: Status: Active Protocol: Document 03/06/20 14:08 MB (Rec: 03/06/20 15:38 MB [id number]) Shoulder Strength Shoulder Manual Muscle Testing Left Flexion 5 Normal Right Flexion 5 Normal Elbow/Forearm Strength Elbow and Forearm Manual Muscle Testing Left Flexion (C6) 5 Normal Extension (C7) 5 Normal Right Flexion (C6) 5 Normal Extension (C7) 5 Normal Hip Strength Hip Manual Muscle Testing Left Flexion (L2) 5 Normal Right Flexion (L2) 5 Normal PT-OP-Q Treatments Start: 03/06/20 14:03 Freq: Status: Active Protocol: Document 03/18/20 13:58 MB (Rec: 03/18/20 15:10 MB [id number]) Therapeutic Exercises Sitting Exercises BIG sit to stand Reps/Minutes 8 Comments Mesh chair outside, cues to turn palms forward when extended Side to side Side bilateral Reps/Minutes 5 Comments Better position today Floor to ceiling Reps/Minutes 9 Comments No cues needed today Standing Exercises Sideways rock and reach Standing Exercise Name Divide pivot and arms Side bilateral Reps/Minutes 8 reps Comments Ongoing difficult with thoracic rotation Forwards rock and reach Side bilateral Reps/Minutes 10 Comments Cues for BIG standing, longer stride stance Backwards step and reach Side bilateral Reps/Minutes 8 Comments Better today, cues toes up Sideways step and reach Side bilateral Reps/Minutes 8 Comments Much better today, cues BIG feet Forward step and reach Side bilateral Reps/Minutes 10 Comments Cues BIG step forward and backwards Therapeutic Activity Therapeutic Activity Donning sweatshirt Comments 15' practice donning and doffing of corduroy shirt, first takes 20 secs, after practice, takes 10 sec. Broken down into pulling shirt around with left hand and putting right arm in BIG and intentionally--shirt dangling in front and turned away from patient. Cues to practice 5x daily and to practice buttoning left wrist button with right hand Gait Training Gait Activity BIG walking Description BIG walking Level of Assistance SBA Surface paved and gravel outside, changing sidewalk Distance/Duration 15' Treatment Focus Right arm swing, Long and BIG steps, BIG right hand Comments Pt requires 2 rest breaks with walking, resting in shade for 1 minute. Bigger steps today PT-OP-T Assessment and Plan Start: 03/06/20 14:03 Freq: Status: Active Protocol: Document 03/18/20 13:58 MB (Rec: 03/18/20 15:10 MB [id number]) Physical Therapy Assessment Rehab Potential Rehabilitation Potential Good Evaluation Complexity Number of Personal Factors/Comorbidities 1-2 Number of Body Systems Impaired 1-2 Clinical Presentation at Evaluation Evolving Impairments Impairments Balance,Coordination, Functional Activities,Gait, Posture,Soft Tissue Mobility Goals 5 Usp Goal (LTG) Pt will perform BIG exercises with appropriate amplitude and effort with I to improve posture and gait by 04/10/2020. LTG Duration 4 weeks 4 Usp Goal (LTG) Pt will perform 20 reps sit to stand without UE support in 30 sec to improve functional mobility and leg strength by . LTG Duration 4 weeks 3 Usp Goal (LTG) Pt will demonstrate donning and doffing gait belt through legs standing on right leg and then standing on left leg to improve balance with dressing by 04/10/2020. LTG Duration 4 weeks 2 Shuttle Fixer Goal (LTG) Pt will gait train 2270 feet in 6 minutes to allow him to return to prior 3 mile walk in 42 minutes by 04/10/2020. LTG Duration 4 weeks 1 Shuttle Fixer Goal (LTG) Pt will present with FGA score of at least 27/30 to reflect improved balance and decreased fall risk by 04/10/2020. LTG Duration 4 weeks Assessment Summary Assessment Less time and better performance with exercises today. He still requires cues for hand placement for sit to stand. Better tolerance to walking today, cooler and a breeze. All activities performed outside again today. Physical Therapy Plan Frequency and Duration Frequency of Treatment 4x/Week Duration of Treatment 4 weeks Plan of Care Start Date 03/06/20 Plan of Care End Date 04/10/20 Therapeutic Interventions Therapeutic Interventions Balance Training,Coordination Training,Gait Training,Home Exercise Program,Neuromuscular Re-education,Patient/ Caregiver Education,Self-Care/ Home Management,Therapeutic Activities,Therapeutic Exercises Next Visit Focus/Plan Next Note Type Treatment Note Next Visit Plan Progress BIG walking, review all exercises and functional activities
--- NOTE | 2020-03-19 16:50 | PT.OTN ---
Current Diagnoses Parkinson's disease (03/19/20) Ataxia, unspecified (03/19/20) Physical Therapy Treatment Note PT-OP-A Visit Information Start: 03/06/20 14:03 Freq: Status: Active Protocol: Document 03/19/20 16:39 AW (Rec: 03/19/20 16:50 AW [id number]) Out-Patient Physical Therapy Visit Information Visit Information Visit Type Treatment Note Visit Start Time 14:15 Visit Stop Time 15:15 Total Visit Minutes 60 Visit Number 8 PT-OP-B Current Condition Start: 03/06/20 14:03 Freq: Status: Active Protocol: Document 03/06/20 14:08 MB (Rec: 03/06/20 15:09 MB [id number]) Current Condition History of Current Condition Onset Date 5-7 years Current Complaints Decreased ability to think through math problems, right UE tremor History of Current Condition Pt reports that the first sign of his PD was right hand tremor and difficulty with performing math in his head. 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 He has trouble sleeping and has trouble falling asleep d/t restless legs. It can take up to a couple of hours to fall asleep. PMH: Tremor right UE and pt is right-handed, prostate and colon CA, colon resection, gallbladder disease, carpal tunnel surgery His biggest problem is his voice. He works out with weights each day. He has 5 lb free weights. He can stand on his left foot to get on shorts but cannot stand on his right foot to get on shorts. He reports problems with his Ropininrole that he takes at night. He states that his legs get worse as far as aching after taking it. Pt drinks 2.5 cups of coffee a day, one beer and 60 oz of water. Pt denies falls. He is driving . He was up on ladders cleaning gutters but was told by doctor not to do so. He wonders about using a chain saw. There are two steps to enter to get into the house without a rail. Prior Treatments and Tests PT in the past and it was not very helpful Treatment Goals Patient/Caregiver Goals To be able to maintain function and normalcy. His voice is is biggest problem. He would like to get back to 3 mile course of walking in 42 minutes. He would like to get back to walking 2 miles on the beach. He would like to be able to stand on his right leg to put on shorts. Prior Functional Status Baseline Function- ADL's Independent Baseline Function- Mobility Independent Baseline Function- Gait I PT-OP-C Subjective Start: 03/06/20 14:03 Freq: Status: Active Protocol: Document 03/19/20 16:39 AW (Rec: 03/19/20 16:50 AW [id number]) OP-PT Subjective Patient Comments Patient Comments I feel energetic and motivated. My says my movement looks better. PT-OP-D Balance Start: 03/06/20 14:03 Freq: Status: Active Protocol: Document 03/06/20 14:08 MB (Rec: 03/06/20 15:38 MB [id number]) OP-PT Balance Assessment Sitting Balance Static Sitting Balance Ability Normal Dynamic Sitting Balance Ability Normal Standing Balance Static Standing Balance Ability Normal Dynamic Standing Balance Ability Normal Balance Tests Other Other Balance Tests Performed FGA score 25/30, indicating increased risk for falling 30 sec sit to stand without UE support: 15; two trials d/t pt not putting hips down on the mat with first trial Hamilton Fall Scale Copyright Permission PT-OP-G Mobility & Gait Start: 03/06/20 14:03 Freq: Status: Active Protocol: Document 03/06/20 14:08 MB (Rec: 03/06/20 15:38 MB [id number]) OP Gait Assessment Comments Gait Comments 6MWT 1626 feet. Pt has good gait speed, decreased arm swing and occ scuffing of lateral sides of feet. Decreased confidence with stairs without rail and pt takes time to adjust for descending steps PT-OP-J Posture/Palpation/Skin Start: 03/06/20 14:03 Freq: Status: Active Protocol: Document 03/06/20 14:08 MB (Rec: 03/06/20 15:39 MB [id number]) Posture Evaluation Comments Posture Comments Forward, flexed posture in sitting and standing PT-OP-M Strength Start: 03/06/20 14:03 Freq: Status: Active Protocol: Document 03/06/20 14:08 MB (Rec: 03/06/20 15:38 MB [id number]) Shoulder Strength Shoulder Manual Muscle Testing Left Flexion 5 Normal Right Flexion 5 Normal Elbow/Forearm Strength Elbow and Forearm Manual Muscle Testing Left Flexion (C6) 5 Normal Extension (C7) 5 Normal Right Flexion (C6) 5 Normal Extension (C7) 5 Normal Hip Strength Hip Manual Muscle Testing Left Flexion (L2) 5 Normal Right Flexion (L2) 5 Normal PT-OP-Q Treatments Start: 03/06/20 14:03 Freq: Status: Active Protocol: Document 03/19/20 16:39 AW (Rec: 03/19/20 16:50 AW [id number]) Therapeutic Exercises Sitting Exercises BIG sit to stand Reps/Minutes 8 x 2 Comments Bench outside, cues for bigger forward reach, especially on descent Side to side Side bilateral Reps/Minutes 8 Comments improved trunk rotation today Floor to ceiling Reps/Minutes 10 Comments No cues needed today Standing Exercises Sideways rock and reach Side bilateral Reps/Minutes 10 reps Comments One verbal cue only for pivot on back foot each side Forwards rock and reach Side bilateral Reps/Minutes 10 Comments improved coordination of weight shifting Backwards step and reach Side bilateral Reps/Minutes 10 Comments improved coordination and backward arm swing Sideways step and reach Side bilateral Reps/Minutes 10 each side, alternating Forward step and reach Side bilateral Reps/Minutes 10 each side, alternating Gait Training Gait Activity hurdles Description hurdles Level of Assistance SBA Surface carpet Distance/Duration 25 feet x 10 Treatment Focus heelstrike and RUE swing BIG walking Description BIG walking Level of Assistance SBA Surface paved and stairs outside around hospital perimeter Distance/Duration 15' Treatment Focus backward arm swing RUE Comments No rest breaks needed. Prompted BIG backswing RUE multiple times with pt able to increase amplitude momentarily but returns to rigidity with distraction. Also educated pt on thoracic rotation required for arm swing Self-Care/Home Management Treatment Education Other Education Pt to add sit to stand practice from his loveseat this evening. As he watches TV , pt will practice sit to stand at each commercial break . PT-OP-T Assessment and Plan Start: 03/06/20 14:03 Freq: Status: Active Protocol: Document 03/19/20 16:39 AW (Rec: 03/19/20 16:50 AW [email or web address]) Physical Therapy Assessment Rehab Potential Rehabilitation Potential Good Evaluation Complexity Number of Personal Factors/Comorbidities 1-2 Number of Body Systems Impaired 1-2 Clinical Presentation at Evaluation Evolving Impairments Impairments Balance,Coordination, Functional Activities,Gait, Posture,Soft Tissue Mobility Goals 5 Mower Mechanic Goal (LTG) Pt will perform BIG exercises with appropriate amplitude and effort with I to improve posture and gait by 04/10/2020. LTG Duration 4 weeks 4 Retirement Goal (LTG) Pt will perform 20 reps sit to stand without UE support in 30 sec to improve functional mobility and leg strength by . LTG Duration 4 weeks 3 Retirement Goal (LTG) Pt will demonstrate donning and doffing gait belt through legs standing on right leg and then standing on left leg to improve balance with dressing by 04/10/2020. LTG Duration 4 weeks 2 Mower Mechanic Goal (LTG) Pt will gait train 2270 feet in 6 minutes to allow him to return to prior 3 mile walk in 42 minutes by 04/10/2020. LTG Duration 4 weeks 1 Mower Mechanic Goal (LTG) Pt will present with FGA score of at least 27/30 to reflect improved balance and decreased fall risk by 04/10/2020. LTG Duration 4 weeks Assessment Summary Assessment Improved thoracic rotation today during exercises but needs cues for thoracic rotation during gait. Pt is noted to self-correct several times during exercises, showing good attention to bigger movement. Pt will bring button-down shirt tomorrow for button practice. Physical Therapy Plan Frequency and Duration Frequency of Treatment 4x/Week Duration of Treatment 4 weeks Plan of Care Start Date 03/06/20 Plan of Care End Date 04/10/20 Therapeutic Interventions Therapeutic Interventions Balance Training,Coordination Training,Gait Training,Home Exercise Program,Neuromuscular Re-education,Patient/ Caregiver Education,Self-Care/ Home Management,Therapeutic Activities,Therapeutic Exercises Next Visit Focus/Plan Next Note Type Treatment Note Next Visit Plan Progress BIG walking, review all exercises and functional activities
--- NOTE | 2020-03-20 15:40 | PT.OTN ---
Current Diagnoses Parkinson's disease (03/20/20) Ataxia, unspecified (03/20/20) Physical Therapy Treatment Note PT-OP-A Visit Information Start: 03/06/20 14:03 Freq: Status: Active Protocol: Document 03/20/20 14:20 MB (Rec: 03/20/20 15:40 MB [id number]) Out-Patient Physical Therapy Visit Information Visit Information Visit Type Treatment Note Visit Start Time 14:20 Visit Stop Time 15:20 Total Visit Minutes 60 Visit Number 9 PT-OP-B Current Condition Start: 03/06/20 14:03 Freq: Status: Active Protocol: Document 03/06/20 14:08 MB (Rec: 03/06/20 15:09 MB [id number]) Current Condition History of Current Condition Onset Date 5-7 years Current Complaints Decreased ability to think through math problems, right UE tremor History of Current Condition Pt reports that the first sign of his PD was right hand tremor and difficulty with performing math in his head. 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 He has trouble sleeping and has trouble falling asleep d/t restless legs. It can take up to a couple of hours to fall asleep. PMH: Tremor right UE and pt is right-handed, prostate and colon CA, colon resection, gallbladder disease, carpal tunnel surgery His biggest problem is his voice. He works out with weights each day. He has 5 lb free weights. He can stand on his left foot to get on shorts but cannot stand on his right foot to get on shorts. He reports problems with his Ropininrole that he takes at night. He states that his legs get worse as far as aching after taking it. Pt drinks 2.5 cups of coffee a day, one beer and 60 oz of water. Pt denies falls. He is driving . He was up on ladders cleaning gutters but was told by doctor not to do so. He wonders about using a chain saw. There are two steps to enter to get into the house without a rail. Prior Treatments and Tests PT in the past and it was not very helpful Treatment Goals Patient/Caregiver Goals To be able to maintain function and normalcy. His voice is is biggest problem. He would like to get back to 3 mile course of walking in 42 minutes. He would like to get back to walking 2 [place] He would like to be able to stand on his right leg to put on shorts. Prior Functional Status Baseline Function- ADL's Independent Baseline Function- Mobility Independent Baseline Function- Gait I PT-OP-C Subjective Start: 03/06/20 14:03 Freq: Status: Active Protocol: Document 03/20/20 14:20 MB (Rec: 03/20/20 15:40 MB [id number]) OP-PT Subjective Patient Comments Patient Comments Pt states that he was able to work on walking this morning and exercises are going better . He is counting out loud at home. PT-OP-D Balance Start: 03/06/20 14:03 Freq: Status: Active Protocol: Document 03/06/20 14:08 MB (Rec: 03/06/20 15:38 MB [id number]) OP-PT Balance Assessment Sitting Balance Static Sitting Balance Ability Normal Dynamic Sitting Balance Ability Normal Standing Balance Static Standing Balance Ability Normal Dynamic Standing Balance Ability Normal Balance Tests Other Other Balance Tests Performed FGA score 25/30, indicating increased risk for falling 30 sec sit to stand without UE support: 15; two trials d/t pt not putting hips down on the mat with first trial Hamilton Fall Scale Copyright Permission PT-OP-G Mobility & Gait Start: 03/06/20 14:03 Freq: Status: Active Protocol: Document 03/06/20 14:08 MB (Rec: 03/06/20 15:38 MB [id number]) OP Gait Assessment Comments Gait Comments 6MWT 1626 feet. Pt has good gait speed, decreased arm swing and occ scuffing of lateral sides of feet. Decreased confidence with stairs without rail and pt takes time to adjust for descending steps PT-OP-J Posture/Palpation/Skin Start: 03/06/20 14:03 Freq: Status: Active Protocol: Document 03/06/20 14:08 MB (Rec: 03/06/20 15:39 MB [id number]) Posture Evaluation Comments Posture Comments Forward, flexed posture in sitting and standing PT-OP-M Strength Start: 03/06/20 14:03 Freq: Status: Active Protocol: Document 03/06/20 14:08 MB (Rec: 03/06/20 15:38 MB [id number]) Shoulder Strength Shoulder Manual Muscle Testing Left Flexion 5 Normal Right Flexion 5 Normal Elbow/Forearm Strength Elbow and Forearm Manual Muscle Testing Left Flexion (C6) 5 Normal Extension (C7) 5 Normal Right Flexion (C6) 5 Normal Extension (C7) 5 Normal Hip Strength Hip Manual Muscle Testing Left Flexion (L2) 5 Normal Right Flexion (L2) 5 Normal PT-OP-Q Treatments Start: 03/06/20 14:03 Freq: Status: Active Protocol: Document 03/20/20 14:20 MB (Rec: 03/20/20 15:40 MB [id number]) Therapeutic Exercises Sitting Exercises BIG sit to stand Reps/Minutes 10 Comments Mesh chair outside, ongoing cues for BIG hands and palms forward Side to side Side bilateral Reps/Minutes 5 Comments Cues for upright, BIG back leg and hands Floor to ceiling Reps/Minutes 10 Comments I Standing Exercises Sideways rock and reach Standing Exercise Name Cues not to step Side bilateral Reps/Minutes 10 Comments Cues to move arms with pivot, high arms, BIG hands Forwards rock and reach Side bilateral Reps/Minutes 10 Comments Cues to make stance bigger ( longer) Backwards step and reach Side bilateral Reps/Minutes 10 Comments Cues to bring the front toes up, greater on right foot Sideways step and reach Side bilateral Reps/Minutes 10 Comments Cues for BIG stance Forward step and reach Side bilateral Reps/Minutes 10 Comments Cues for BIG stance, BIG leg back, one LOB to the right, self-corrected Therapeutic Activity Therapeutic Activity Donning sweatshirt Comments 8' donning and doffing corduroy shirt: pt is able to perform in 30 sec, then 9 sec, then 8 sec. Buttons on wrist: right hand left button in 3 sec, left hand on right button 20 sec SLS Comments 10 sec each today Gait Training Gait Activity Cone weaving Distance/Duration floor, 30'x6 Comments Pt is able to keep BIG posture , occ steps over cone rather than around (twice) and only kicks over one cone hurdles Description hurdles Level of Assistance Superv Surface floor Distance/Duration 6 hurdles over 15 ft x4 Treatment Focus Heel strike and right UE BIG BIG walking Level of Assistance Superv to SBA Surface Paved, steps, gravel, over curbs and covered pot holes and grass Distance/Duration 15' Treatment Focus Cues for arm swing Comments No rest breaks today PT-OP-T Assessment and Plan Start: 03/06/20 14:03 Freq: Status: Active Protocol: Document 03/20/20 14:20 MB (Rec: 03/20/20 15:40 MB [id number]) Physical Therapy Assessment Rehab Potential Rehabilitation Potential Good Evaluation Complexity Number of Personal Factors/Comorbidities 1-2 Number of Body Systems Impaired 1-2 Clinical Presentation at Evaluation Evolving Impairments Impairments Balance,Coordination, Functional Activities,Gait, Posture,Soft Tissue Mobility Goals 5 Care Management Assistant Goal (LTG) Pt will perform BIG exercises with appropriate amplitude and effort with I to improve posture and gait by 04/10/2020. LTG Duration 4 weeks 4 Intermediate Goal (LTG) Pt will perform 20 reps sit to stand without UE support in 30 sec to improve functional mobility and leg strength by . LTG Duration 4 weeks 3 Intermediate Goal (LTG) Pt will demonstrate donning and doffing gait belt through legs standing on right leg and then standing on left leg to improve balance with dressing by 04/10/2020. LTG Duration 4 weeks 2 Intermediate Goal (LTG) Pt will gait train 2270 feet in 6 minutes to allow him to return to prior 3 mile walk in 42 minutes by 04/10/2020. LTG Duration 4 weeks 1 Care Management Assistant Goal (LTG) Pt will present with FGA score of at least 27/30 to reflect improved balance and decreased fall risk by 04/10/2020. LTG Duration 4 weeks Assessment Summary Assessment Pt presents with improvement with exercises, still puts arms behind him for sit to stand, PT writes on HEP pages today and reviews palms forward again. Cues for pivoting on back foot and no step for side to side rock, cues for lifting front toes for rock and reach. Ongoing cues to keep right arm bigger with gait but improved hip flexion, thoracic rotation and heel strike this date. Physical Therapy Plan Frequency and Duration Frequency of Treatment 4x/Week Duration of Treatment 4 weeks Plan of Care Start Date 03/06/20 Plan of Care End Date 04/10/20 Therapeutic Interventions Therapeutic Interventions Balance Training,Coordination Training,Gait Training,Home Exercise Program,Neuromuscular Re-education,Patient/ Caregiver Education,Self-Care/ Home Management,Therapeutic Activities,Therapeutic Exercises Next Visit Focus/Plan Next Note Type Treatment Note Next Visit Plan Progress BIG walking, review all exercises and functional activities
--- NOTE | 2020-03-24 15:23 | PT.OTN ---
Current Diagnoses Parkinson's disease (03/24/20) Ataxia, unspecified (03/24/20) Physical Therapy Treatment Note PT-OP-A Visit Information Start: 03/06/20 14:03 Freq: Status: Active Protocol: Document 03/24/20 14:12 MB (Rec: 03/24/20 15:23 MB [id number]) Out-Patient Physical Therapy Visit Information Visit Information Visit Type Treatment Note Visit Start Time 14:12 Visit Stop Time 15:10 Total Visit Minutes 58 Visit Number 10 PT-OP-B Current Condition Start: 03/06/20 14:03 Freq: Status: Active Protocol: Document 03/06/20 14:08 MB (Rec: 03/06/20 15:09 MB [id number]) Current Condition History of Current Condition Onset Date 5-7 years Current Complaints Decreased ability to think through math problems, right UE tremor History of Current Condition Pt reports that the first sign of his PD was right hand tremor and difficulty with performing math in his head. 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 He has trouble sleeping and has trouble falling asleep d/t restless legs. It can take up to a couple of hours to fall asleep. PMH: Tremor right UE and pt is right-handed, prostate and colon CA, colon resection, gallbladder disease, carpal tunnel surgery His biggest problem is his voice. He works out with weights each day. He has 5 lb free weights. He can stand on his left foot to get on shorts but cannot stand on his right foot to get on shorts. He reports problems with his Ropininrole that he takes at night. He states that his legs get worse as far as aching after taking it. Pt drinks 2.5 cups of coffee a day, one beer and 60 oz of water. Pt denies falls. He is driving . He was up on ladders cleaning gutters but was told by doctor not to do so. He wonders about using a chain saw. There are two steps to enter to get into the house without a rail. Prior Treatments and Tests PT in the past and it was not very helpful Treatment Goals Patient/Caregiver Goals To be able to maintain function and normalcy. His voice is is biggest problem. He would like to get back to 3 mile course of walking in 42 minutes. He would like to get back to walking 2 miles on the beach. He would like to be able to stand on his right leg to put on shorts. Prior Functional Status Baseline Function- ADL's Independent Baseline Function- Mobility Independent Baseline Function- Gait I PT-OP-C Subjective Start: 03/06/20 14:03 Freq: Status: Active Protocol: Document 03/24/20 14:12 MB (Rec: 03/24/20 15:23 MB [id number]) OP-PT Subjective Patient Comments Patient Comments Pt states that he is doing well. He feels that he is standing up straighter more and more. PT-OP-D Balance Start: 03/06/20 14:03 Freq: Status: Active Protocol: Document 03/06/20 14:08 MB (Rec: 03/06/20 15:38 MB [id number]) OP-PT Balance Assessment Sitting Balance Static Sitting Balance Ability Normal Dynamic Sitting Balance Ability Normal Standing Balance Static Standing Balance Ability Normal Dynamic Standing Balance Ability Normal Balance Tests Other Other Balance Tests Performed FGA score 25/30, indicating increased risk for falling 30 sec sit to stand without UE support: 15; two trials d/t pt not putting hips down on the mat with first trial Hamilton Fall Scale Copyright Permission PT-OP-G Mobility & Gait Start: 03/06/20 14:03 Freq: Status: Active Protocol: Document 03/06/20 14:08 MB (Rec: 03/06/20 15:38 MB [id number]) OP Gait Assessment Comments Gait Comments 6MWT 1626 feet. Pt has good gait speed, decreased arm swing and occ scuffing of lateral sides of feet. Decreased confidence with stairs without rail and pt takes time to adjust for descending steps PT-OP-J Posture/Palpation/Skin Start: 03/06/20 14:03 Freq: Status: Active Protocol: Document 03/06/20 14:08 MB (Rec: 03/06/20 15:39 MB [id number]) Posture Evaluation Comments Posture Comments Forward, flexed posture in sitting and standing PT-OP-M Strength Start: 03/06/20 14:03 Freq: Status: Active Protocol: Document 03/06/20 14:08 MB (Rec: 03/06/20 15:38 MB [id number]) Shoulder Strength Shoulder Manual Muscle Testing Left Flexion 5 Normal Right Flexion 5 Normal Elbow/Forearm Strength Elbow and Forearm Manual Muscle Testing Left Flexion (C6) 5 Normal Extension (C7) 5 Normal Right Flexion (C6) 5 Normal Extension (C7) 5 Normal Hip Strength Hip Manual Muscle Testing Left Flexion (L2) 5 Normal Right Flexion (L2) 5 Normal PT-OP-Q Treatments Start: 03/06/20 14:03 Freq: Status: Active Protocol: Document 03/24/20 14:12 MB (Rec: 03/24/20 15:23 MB [id number]) Therapeutic Exercises Sitting Exercises BIG sit to stand Resistance 2 lb ankle weight Reps/Minutes 10 Comments Mesh chair outside. Still tends to reach back and not open forward standing Side to side Side bilateral Resistance 2 lb ankle weight Reps/Minutes 5 Comments Unable to coordinate alternating Floor to ceiling Resistance 2 lb ankle weight Reps/Minutes 10 Comments I Standing Exercises Sideways rock and reach Standing Exercise Name Cues not to step Side bilateral Resistance 2 lb ankle weights Reps/Minutes 8 Comments Cues to pivot and move arms with pivot Forwards rock and reach Side bilateral Resistance 2 lb ankle weights Reps/Minutes 10 Comments Cues to start BIG, BIG step forward and back Backwards step and reach Side bilateral Resistance 2 lb ankle weights Reps/Minutes 8 Comments Much better toe up today, cues BIG stance Sideways step and reach Side bilateral Resistance 2 lb ankle weights Equipment Used 10 Comments Cues again for BIG start stance Forward step and reach Side bilateral Resistance 2 lb ankle weights Reps/Minutes 10 Comments Cues for BIG stance Gait Training Gait Activity Stairs Device Used Rail left descend Treatment Focus BIG reciprocal steps, right arm swing descend Comments 3 ascend, 2 descend, performs well BIG walking Description BIG walking Device Used 2 lb ankle weight Level of Assistance Superv to SBA Surface Paved, steps, gravel, over curbs and covered pot holes and grass Distance/Duration 20' Treatment Focus Cues for arm swing right Comments No rest breaks today, worked on changing direction often Self-Care/Home Management Treatment Education Other Education Ed pt not to forget sweatshirt next treatment, goal to progress with flicks next treatment date PT-OP-T Assessment and Plan Start: 03/06/20 14:03 Freq: Status: Active Protocol: Document 03/24/20 14:12 MB (Rec: 03/24/20 15:23 MB [id number]) Physical Therapy Assessment Rehab Potential Rehabilitation Potential Good Evaluation Complexity Number of Personal Factors/Comorbidities 1-2 Number of Body Systems Impaired 1-2 Clinical Presentation at Evaluation Evolving Impairments Impairments Balance,Coordination, Functional Activities,Gait, Posture,Soft Tissue Mobility Goals 5 Retirement Goal (LTG) Pt will perform BIG exercises with appropriate amplitude and effort with I to improve posture and gait by 04/10/2020. LTG Duration 4 weeks 4 Production Broacher Goal (LTG) Pt will perform 20 reps sit to stand without UE support in 30 sec to improve functional mobility and leg strength by . LTG Duration 4 weeks 3 Retirement Goal (LTG) Pt will demonstrate donning and doffing gait belt through legs standing on right leg and then standing on left leg to improve balance with dressing by 04/10/2020. LTG Duration 4 weeks 2 Production Broacher Goal (LTG) Pt will gait train 2270 feet in 6 minutes to allow him to return to prior 3 mile walk in 42 minutes by 04/10/2020. LTG Duration 4 weeks 1 Retirement Goal (LTG) Pt will present with FGA score of at least 27/30 to reflect improved balance and decreased fall risk by 04/10/2020. LTG Duration 4 weeks Assessment Summary Assessment Pt presents with improvement with exercises, still puts arms behind him for sit to stand. Added 2 lb ankle weights for BIg exercises and gait today. Add flicks for fine motor UEs next treatment date. PT to bring in DVD so that pt can take home for cues . Physical Therapy Plan Frequency and Duration Frequency of Treatment 4x/Week Duration of Treatment 4 weeks Plan of Care Start Date 03/06/20 Plan of Care End Date 04/10/20 Therapeutic Interventions Therapeutic Interventions Balance Training,Coordination Training,Gait Training,Home Exercise Program,Neuromuscular Re-education,Patient/ Caregiver Education,Self-Care/ Home Management,Therapeutic Activities,Therapeutic Exercises Next Visit Focus/Plan Next Note Type Treatment Note Next Visit Plan Progress BIG walking, review all exercises and functional activities
--- NOTE | 2020-03-25 15:28 | PT.OTN ---
Current Diagnoses Parkinson's disease (03/25/20) Ataxia, unspecified (03/25/20) Physical Therapy Treatment Note PT-OP-A Visit Information Start: 03/06/20 14:03 Freq: Status: Active Protocol: Document 03/25/20 14:15 MB (Rec: 03/25/20 15:28 MB [id number]) Out-Patient Physical Therapy Visit Information Visit Information Visit Type Treatment Note Visit Start Time 14:15 Visit Stop Time 15:10 Total Visit Minutes 55 Visit Number 11 PT-OP-B Current Condition Start: 03/06/20 14:03 Freq: Status: Active Protocol: Document 03/06/20 14:08 MB (Rec: 03/06/20 15:09 MB [id number]) Current Condition History of Current Condition Onset Date 5-7 years Current Complaints Decreased ability to think through math problems, right UE tremor History of Current Condition Pt reports that the first sign of his PD was right hand tremor and difficulty with performing math in his head. 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 He has trouble sleeping and has trouble falling asleep d/t restless legs. It can take up to a couple of hours to fall asleep. PMH: Tremor right UE and pt is right-handed, prostate and colon CA, colon resection, gallbladder disease, carpal tunnel surgery His biggest problem is his voice. He works out with weights each day. He has 5 lb free weights. He can stand on his left foot to get on shorts but cannot stand on his right foot to get on shorts. He reports problems with his Ropininrole that he takes at night. He states that his legs get worse as far as aching after taking it. Pt drinks 2.5 cups of coffee a day, one beer and 60 oz of water. Pt denies falls. He is driving . He was up on ladders cleaning gutters but was told by doctor not to do so. He wonders about using a chain saw. There are two steps to enter to get into the house without a rail. Prior Treatments and Tests PT in the past and it was not very helpful Treatment Goals Patient/Caregiver Goals To be able to maintain function and normalcy. His voice is is biggest problem. He would like to get back to 3 mile course of walking in 42 minutes. He would like to get back to walking 2 miles on the beach. He would like to be able to stand on his right leg to put on shorts. Prior Functional Status Baseline Function- ADL's Independent Baseline Function- Mobility Independent Baseline Function- Gait I PT-OP-C Subjective Start: 03/06/20 14:03 Freq: Status: Active Protocol: Document 03/25/20 14:15 MB (Rec: 03/25/20 15:28 MB [id number]) OP-PT Subjective Patient Comments Patient Comments Pt states that he brought in sweatshirt and also brought in 1 lb ankle weights. He feels like he is standing up straighter without having to think about it. PT-OP-D Balance Start: 03/06/20 14:03 Freq: Status: Active Protocol: Document 03/06/20 14:08 MB (Rec: 03/06/20 15:38 MB [id number]) OP-PT Balance Assessment Sitting Balance Static Sitting Balance Ability Normal Dynamic Sitting Balance Ability Normal Standing Balance Static Standing Balance Ability Normal Dynamic Standing Balance Ability Normal Balance Tests Other Other Balance Tests Performed FGA score 25/30, indicating increased risk for falling 30 sec sit to stand without UE support: 15; two trials d/t pt not putting hips down on the mat with first trial Hamilton Fall Scale Copyright Permission PT-OP-G Mobility & Gait Start: 03/06/20 14:03 Freq: Status: Active Protocol: Document 03/06/20 14:08 MB (Rec: 03/06/20 15:38 MB [id number]) OP Gait Assessment Comments Gait Comments 6MWT 1626 feet. Pt has good gait speed, decreased arm swing and occ scuffing of lateral sides of feet. Decreased confidence with stairs without rail and pt takes time to adjust for descending steps PT-OP-J Posture/Palpation/Skin Start: 03/06/20 14:03 Freq: Status: Active Protocol: Document 03/06/20 14:08 MB (Rec: 03/06/20 15:39 MB [id number]) Posture Evaluation Comments Posture Comments Forward, flexed posture in sitting and standing PT-OP-M Strength Start: 03/06/20 14:03 Freq: Status: Active Protocol: Document 03/06/20 14:08 MB (Rec: 03/06/20 15:38 MB [id number]) Shoulder Strength Shoulder Manual Muscle Testing Left Flexion 5 Normal Right Flexion 5 Normal Elbow/Forearm Strength Elbow and Forearm Manual Muscle Testing Left Flexion (C6) 5 Normal Extension (C7) 5 Normal Right Flexion (C6) 5 Normal Extension (C7) 5 Normal Hip Strength Hip Manual Muscle Testing Left Flexion (L2) 5 Normal Right Flexion (L2) 5 Normal PT-OP-Q Treatments Start: 03/06/20 14:03 Freq: Status: Active Protocol: Document 03/25/20 14:15 MB (Rec: 03/25/20 15:28 MB [id number]) Therapeutic Exercises Sitting Exercises BIG sit to stand Sitting Exercise Name Pt still reaches back with standing, heavy VCs, demo, written Resistance 1 lb ankle weight Reps/Minutes 10 Comments Mesh chair outside Side to side Side bilateral Resistance 1 lb ankle weight Reps/Minutes 6 Comments Added flick today Floor to ceiling Resistance 1 lb ankle weight Reps/Minutes 10 Comments I Standing Exercises Sideways rock and reach Standing Exercise Name Improved, pt does not step today Side bilateral Resistance 1 lb ankle weight Reps/Minutes 8 Comments Cues to pivot on back foot Forwards rock and reach Side bilateral Resistance 1 lb ankle weights Reps/Minutes 10 Comments Cues for bigger stance Backwards step and reach Side bilateral Resistance 1 lb ankle weight Reps/Minutes 8 Comments Cues to step bigger Sideways step and reach Side bilateral Resistance 1 lb ankle weight Equipment Used 10 Comments Added flick, which is difficult for pt Forward step and reach Side bilateral Resistance 1 lb ankle weight Reps/Minutes 10 Comments Better big stance today Therapeutic Activity Therapeutic Activity Donning sweatshirt Comments Donning and doffiing sweatshirt. Before exercises with added flick: 26 sec to don and 8 sec to doff. After exercises with flick, 18 sec to don and 5 sec to doff. Cues for big arm in shirt Gait Training Gait Activity Stairs Treatment Focus BIG reciprocal steps, right arm swing descend Comments 3 ascend and 2 descend, performs well today without rail, cues for right big hand and not scuffing feet BIG walking Description BIG walking Device Used 1 lb ankle weight Level of Assistance Superv to SBA Surface Paved, steps, gravel, over curbs and covered pot holes and grass Distance/Duration 15' Treatment Focus Cues for big hand right Comments No rest breaks today, worked on changing direction often with cues right and left in rapid succession occ Self-Care/Home Management Treatment Education Other Education Ed to perform exercises with BIG video and add flicks to sideways chair exercise and side step exercise PT-OP-T Assessment and Plan Start: 03/06/20 14:03 Freq: Status: Active Protocol: Document 03/25/20 14:15 MB (Rec: 03/25/20 15:28 MB [id number]) Physical Therapy Assessment Rehab Potential Rehabilitation Potential Good Evaluation Complexity Number of Personal Factors/Comorbidities 1-2 Number of Body Systems Impaired 1-2 Clinical Presentation at Evaluation Evolving Impairments Impairments Balance,Coordination, Functional Activities,Gait, Posture,Soft Tissue Mobility Goals 5 Outside Sales Account Representative Goal (LTG) Pt will perform BIG exercises with appropriate amplitude and effort with I to improve posture and gait by 04/10/2020. LTG Duration 4 weeks 4 Assisted Goal (LTG) Pt will perform 20 reps sit to stand without UE support in 30 sec to improve functional mobility and leg strength by . LTG Duration 4 weeks 3 Outside Sales Account Representative Goal (LTG) Pt will demonstrate donning and doffing gait belt through legs standing on right leg and then standing on left leg to improve balance with dressing by 04/10/2020. LTG Duration 4 weeks 2 Outside Sales Account Representative Goal (LTG) Pt will gait train 2270 feet in 6 minutes to allow him to return to prior 3 mile walk in 42 minutes by 04/10/2020. LTG Duration 4 weeks 1 Assisted Goal (LTG) Pt will present with FGA score of at least 27/30 to reflect improved balance and decreased fall risk by 04/10/2020. LTG Duration 4 weeks Assessment Summary Assessment Advanced flick today to improve big right hand, still puts arms behind him for sit to stand. Pt's big stance is better I and his gait is bigger and with good speed. Physical Therapy Plan Frequency and Duration Frequency of Treatment 4x/Week Duration of Treatment 4 weeks Plan of Care Start Date 03/06/20 Plan of Care End Date 04/10/20 Therapeutic Interventions Therapeutic Interventions Balance Training,Coordination Training,Gait Training,Home Exercise Program,Neuromuscular Re-education,Patient/ Caregiver Education,Self-Care/ Home Management,Therapeutic Activities,Therapeutic Exercises Next Visit Focus/Plan Next Note Type Treatment Note Next Visit Plan Progress BIG walking, review all exercises and functional activities
--- NOTE | 2020-03-26 17:55 | PT.OTN ---
Current Diagnoses Parkinson's disease (03/26/20) Ataxia, unspecified (03/26/20) Physical Therapy Treatment Note PT-OP-A Visit Information Start: 03/06/20 14:03 Freq: Status: Active Protocol: Document 03/26/20 17:43 AW (Rec: 03/26/20 17:55 AW [email or web address]) Out-Patient Physical Therapy Visit Information Visit Information Visit Type Treatment Note Visit Start Time 14:15 Visit Stop Time 15:12 Total Visit Minutes 57 Visit Number 12 PT-OP-B Current Condition Start: 03/06/20 14:03 Freq: Status: Active Protocol: Document 03/06/20 14:08 MB (Rec: 03/06/20 15:09 MB [id number]) Current Condition History of Current Condition Onset Date 5-7 years Current Complaints Decreased ability to think through math problems, right UE tremor History of Current Condition Pt reports that the first sign of his PD was right hand tremor and difficulty with performing math in his head. 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 He has trouble sleeping and has trouble falling asleep d/t restless legs. It can take up to a couple of hours to fall asleep. PMH: Tremor right UE and pt is right-handed, prostate and colon CA, colon resection, gallbladder disease, carpal tunnel surgery His biggest problem is his voice. He works out with weights each day. He has 5 lb free weights. He can stand on his left foot to get on shorts but cannot stand on his right foot to get on shorts. He reports problems with his Ropininrole that he takes at night. He states that his legs get worse as far as aching after taking it. Pt drinks 2.5 cups of coffee a day, one beer and 60 oz of water. Pt denies falls. He is driving . He was up on ladders cleaning gutters but was told by doctor not to do so. He wonders about using a chain saw. There are two steps to enter to get into the house without a rail. Prior Treatments and Tests PT in the past and it was not very helpful Treatment Goals Patient/Caregiver Goals To be able to maintain function and normalcy. His voice is is biggest problem. He would like to get back to 3 mile course of walking in 42 minutes. He would like to get back to walking 2 [place] on the [place]. He would like to be able to stand on his right leg to put on shorts. Prior Functional Status Baseline Function- ADL's Independent Baseline Function- Mobility Independent Baseline Function- Gait I PT-OP-C Subjective Start: 03/06/20 14:03 Freq: Status: Active Protocol: Document 03/26/20 17:43 AW (Rec: 03/26/20 17:55 AW [email or web address]) OP-PT Subjective Patient Comments Patient Comments Pt states he is much more aware of his posture. His girlfriend helps him with exercises and provides cueing for arm swing during walks. PT-OP-D Balance Start: 03/06/20 14:03 Freq: Status: Active Protocol: Document 03/06/20 14:08 MB (Rec: 03/06/20 15:38 MB [id number]) OP-PT Balance Assessment Sitting Balance Static Sitting Balance Ability Normal Dynamic Sitting Balance Ability Normal Standing Balance Static Standing Balance Ability Normal Dynamic Standing Balance Ability Normal Balance Tests Other Other Balance Tests Performed FGA score 25/30, indicating increased risk for falling 30 sec sit to stand without UE support: 15; two trials d/t pt not putting hips down on the mat with first trial Hamilton Fall Scale Copyright Permission PT-OP-G Mobility & Gait Start: 03/06/20 14:03 Freq: Status: Active Protocol: Document 03/06/20 14:08 MB (Rec: 03/06/20 15:38 MB [id number]) OP Gait Assessment Comments Gait Comments 6MWT 1626 feet. Pt has good gait speed, decreased arm swing and occ scuffing of lateral sides of feet. Decreased confidence with stairs without rail and pt takes time to adjust for descending steps PT-OP-J Posture/Palpation/Skin Start: 03/06/20 14:03 Freq: Status: Active Protocol: Document 03/06/20 14:08 MB (Rec: 03/06/20 15:39 MB [id number]) Posture Evaluation Comments Posture Comments Forward, flexed posture in sitting and standing PT-OP-M Strength Start: 03/06/20 14:03 Freq: Status: Active Protocol: Document 03/06/20 14:08 MB (Rec: 03/06/20 15:38 MB [id number]) Shoulder Strength Shoulder Manual Muscle Testing Left Flexion 5 Normal Right Flexion 5 Normal Elbow/Forearm Strength Elbow and Forearm Manual Muscle Testing Left Flexion (C6) 5 Normal Extension (C7) 5 Normal Right Flexion (C6) 5 Normal Extension (C7) 5 Normal Hip Strength Hip Manual Muscle Testing Left Flexion (L2) 5 Normal Right Flexion (L2) 5 Normal PT-OP-Q Treatments Start: 03/06/20 14:03 Freq: Status: Active Protocol: Document 03/26/20 17:43 AW (Rec: 03/26/20 17:55 AW [email or web address]) Therapeutic Exercises Sitting Exercises BIG sit to stand Sitting Exercise Name sit to stand Equipment Used rocker board Reps/Minutes 5 x 3 Comments 5 reps firm chair; 5 reps board oriented A/P; 5 reps board laterally Side to side Side bilateral Reps/Minutes 8 Comments good self-correction for posture noted Floor to ceiling Reps/Minutes 10 Comments IND; strong counting voice Standing Exercises Sideways rock and reach Side bilateral Equipment Used on gym mat Reps/Minutes 8 Comments Cues to pivot on back foot Forwards rock and reach Side bilateral Equipment Used on gym mat Reps/Minutes 10 Comments cues for big arm swing Backwards step and reach Side bilateral Equipment Used on gym mat Reps/Minutes 8 Comments Cues to step bigger Sideways step and reach Side bilateral Equipment Used on gym mat Reps/Minutes 10 Forward step and reach Side bilateral Equipment Used on gym mat Reps/Minutes 10 Comments nice, crisp movement Therapeutic Activity Therapeutic Activity Donning sweatshirt Comments Donning and doffiing sweatshirt. Cues for big grasp on fabric and big arm push through the sleeve. Pt cut donning time in half, starting at 30 seconds and ending with 15 seconds Gait Training Gait Activity figure 8 Description figure 8 Device Used two bolsters standing on end Level of Assistance SBA Surface carpet Distance/Duration 8 minutes Treatment Focus big steps and arm swing in turns BIG walking Description BIG walking Level of Assistance Superv to SBA Surface Paved, steps, gravel, over curbs and covered pot holes and grass Distance/Duration 15' Treatment Focus Cues for big hand right and big arm swing Comments PT darted in front of the pt several times to distract and to force course correction with pt able to maintain big arm swing better today. Continue to note excessive foot scuffing PT-OP-T Assessment and Plan Start: 03/06/20 14:03 Freq: Status: Active Protocol: Document 03/26/20 17:43 AW (Rec: 03/26/20 17:55 AW [email or web address]) Physical Therapy Assessment Rehab Potential Rehabilitation Potential Good Evaluation Complexity Number of Personal Factors/Comorbidities 1-2 Number of Body Systems Impaired 1-2 Clinical Presentation at Evaluation Evolving Impairments Impairments Balance,Coordination, Functional Activities,Gait, Posture,Soft Tissue Mobility Goals 5 Floor Plan Adjuster Goal (LTG) Pt will perform BIG exercises with appropriate amplitude and effort with I to improve posture and gait by 04/10/2020. LTG Duration 4 weeks 4 Custodial Goal (LTG) Pt will perform 20 reps sit to stand without UE support in 30 sec to improve functional mobility and leg strength by . LTG Duration 4 weeks 3 Custodial Goal (LTG) Pt will demonstrate donning and doffing gait belt through legs standing on right leg and then standing on left leg to improve balance with dressing by 04/10/2020. LTG Duration 4 weeks 2 Floor Plan Adjuster Goal (LTG) Pt will gait train 2270 feet in 6 minutes to allow him to return to prior 3 mile walk in 42 minutes by 04/10/2020. LTG Duration 4 weeks 1 Custodial Goal (LTG) Pt will present with FGA score of at least 27/30 to reflect improved balance and decreased fall risk by 04/10/2020. LTG Duration 4 weeks Assessment Summary Assessment Gait is improving. Even with distraction, pt is able to maintain bigger arm swing. Continue to note shoe scuffing noise, but pt responds well to cues for bigger steps and heelstrike at initial contact. Physical Therapy Plan Frequency and Duration Frequency of Treatment 4x/Week Duration of Treatment 4 weeks Plan of Care Start Date 03/06/20 Plan of Care End Date 04/10/20 Therapeutic Interventions Therapeutic Interventions Balance Training,Coordination Training,Gait Training,Home Exercise Program,Neuromuscular Re-education,Patient/ Caregiver Education,Self-Care/ Home Management,Therapeutic Activities,Therapeutic Exercises Next Visit Focus/Plan Next Note Type Treatment Note Next Visit Plan Progress BIG walking, review all exercises and functional activities
--- NOTE | 2020-03-27 15:40 | PT.OTN ---
Current Diagnoses Parkinson's disease (03/27/20) Ataxia, unspecified (03/27/20) Physical Therapy Treatment Note PT-OP-A Visit Information Start: 03/06/20 14:03 Freq: Status: Active Protocol: Document 03/27/20 14:15 MB (Rec: 03/27/20 15:39 MB [id number]) Out-Patient Physical Therapy Visit Information Visit Information Visit Type Treatment Note Visit Start Time 14:15 Visit Stop Time 15:15 Total Visit Minutes 60 Visit Number 13 PT-OP-B Current Condition Start: 03/06/20 14:03 Freq: Status: Active Protocol: Document 03/06/20 14:08 MB (Rec: 03/06/20 15:09 MB [id number]) Current Condition History of Current Condition Onset Date 5-7 years Current Complaints Decreased ability to think through math problems, right UE tremor History of Current Condition Pt reports that the first sign of his PD was right hand tremor and difficulty with performing math in his head. 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 He has trouble sleeping and has trouble falling asleep d/t restless legs. It can take up to a couple of hours to fall asleep. PMH: Tremor right UE and pt is right-handed, prostate and colon CA, colon resection, gallbladder disease, carpal tunnel surgery His biggest problem is his voice. He works out with weights each day. He has 5 lb free weights. He can stand on his left foot to get on shorts but cannot stand on his right foot to get on shorts. He reports problems with his Ropininrole that he takes at night. He states that his legs get worse as far as aching after taking it. Pt drinks 2.5 cups of coffee a day, one beer and 60 oz of water. Pt denies falls. He is driving . He was up on ladders cleaning gutters but was told by doctor not to do so. He wonders about using a chain saw. There are two steps to enter to get into the house without a rail. Prior Treatments and Tests PT in the past and it was not very helpful Treatment Goals Patient/Caregiver Goals To be able to maintain function and normalcy. His voice is is biggest problem. He would like to get back to 3 mile course of walking in 42 minutes. He would like to get back to walking 2 [place] on the [place]. He would like to be able to stand on his right leg to put on shorts. Prior Functional Status Baseline Function- ADL's Independent Baseline Function- Mobility Independent Baseline Function- Gait I PT-OP-C Subjective Start: 03/06/20 14:03 Freq: Status: Active Protocol: Document 03/27/20 14:15 MB (Rec: 03/27/20 15:39 MB [id number]) OP-PT Subjective Patient Comments Patient Comments Pt states that his walking is going better. He was able to get through all of his exercises in 15-20 minutes this morning. He did not add flicking to his exercises as instructed by PT. PT-OP-D Balance Start: 03/06/20 14:03 Freq: Status: Active Protocol: Document 03/06/20 14:08 MB (Rec: 03/06/20 15:38 MB [id number]) OP-PT Balance Assessment Sitting Balance Static Sitting Balance Ability Normal Dynamic Sitting Balance Ability Normal Standing Balance Static Standing Balance Ability Normal Dynamic Standing Balance Ability Normal Balance Tests Other Other Balance Tests Performed FGA score 25/30, indicating increased risk for falling 30 sec sit to stand without UE support: 15; two trials d/t pt not putting hips down on the mat with first trial Hamilton Fall Scale Copyright Permission PT-OP-G Mobility & Gait Start: 03/06/20 14:03 Freq: Status: Active Protocol: Document 03/06/20 14:08 MB (Rec: 03/06/20 15:38 MB [id number]) OP Gait Assessment Comments Gait Comments 6MWT 1626 feet. Pt has good gait speed, decreased arm swing and occ scuffing of lateral sides of feet. Decreased confidence with stairs without rail and pt takes time to adjust for descending steps PT-OP-J Posture/Palpation/Skin Start: 03/06/20 14:03 Freq: Status: Active Protocol: Document 03/06/20 14:08 MB (Rec: 03/06/20 15:39 MB [id number]) Posture Evaluation Comments Posture Comments Forward, flexed posture in sitting and standing PT-OP-M Strength Start: 03/06/20 14:03 Freq: Status: Active Protocol: Document 03/06/20 14:08 MB (Rec: 03/06/20 15:38 MB [id number]) Shoulder Strength Shoulder Manual Muscle Testing Left Flexion 5 Normal Right Flexion 5 Normal Elbow/Forearm Strength Elbow and Forearm Manual Muscle Testing Left Flexion (C6) 5 Normal Extension (C7) 5 Normal Right Flexion (C6) 5 Normal Extension (C7) 5 Normal Hip Strength Hip Manual Muscle Testing Left Flexion (L2) 5 Normal Right Flexion (L2) 5 Normal PT-OP-Q Treatments Start: 03/06/20 14:03 Freq: Status: Active Protocol: Document 03/27/20 14:15 MB (Rec: 03/27/20 15:39 MB [id number]) Therapeutic Exercises Sitting Exercises BIG sit to stand Equipment Used Blue foam Reps/Minutes 10 Comments Firm blue chair outside, 1st & 2nd rep cued to open up posture Side to side Side bilateral Reps/Minutes 5 Comments flick x10 Floor to ceiling Reps/Minutes 10 Comments I Standing Exercises Sideways rock and reach Side bilateral Reps/Minutes 5 Comments Cues to pivot on back foot and move arms together Forwards rock and reach Side bilateral Reps/Minutes 10 Comments Cues for big stance Backwards step and reach Side bilateral Reps/Minutes 10 Comments Cues for big step and to lift front toe Sideways step and reach Side bilateral Reps/Minutes 10 Comments 1 flick each rep Forward step and reach Side bilateral Reps/Minutes 10 Therapeutic Activity Therapeutic Activity Donning sweatshirt Comments Donning sweatshirt before treatment with flicks: 21 sec; doffing sweatshirt after treatment 8 sec Hip flexion october to prepare for donning shorts while standing on one leg Comments 5 reps B and SBA to prevent LOB SLS Comments With opposite foot near stance leg, up to 30 sec. With opposite hip and knee bend 90/ 90, 10 sec B Gait Training Gait Activity BIG walking Description BIG walking Level of Assistance Superv Surface Paved, steps, gravel, over curbs and covered pot holes and grass Distance/Duration 17' Treatment Focus Cues for big hand right and big arm swing Comments Pt with less scuffing today, cues for heel strike, was able to recite 5 LOUD exercise statements during gait but did not remember any more phrases Self-Care/Home Management Treatment Education Other Education Use [employer] video for exercises at least once a day, information on website and how to look into getting a DVD and follow- up after d/c from [employer] PT-OP-T Assessment and Plan Start: 03/06/20 14:03 Freq: Status: Active Protocol: Document 03/27/20 14:15 MB (Rec: 03/27/20 15:39 MB [id number]) Physical Therapy Assessment Rehab Potential Rehabilitation Potential Good Evaluation Complexity Number of Personal Factors/Comorbidities 1-2 Number of Body Systems Impaired 1-2 Clinical Presentation at Evaluation Evolving Impairments Impairments Balance,Coordination, Functional Activities,Gait, Posture,Soft Tissue Mobility Goals 5 Assisted Goal (LTG) Pt will perform BIG exercises with appropriate amplitude and effort with I to improve posture and gait by 04/10/2020. LTG Duration 4 weeks 4 Assisted Goal (LTG) Pt will perform 20 reps sit to stand without UE support in 30 sec to improve functional mobility and leg strength by . LTG Duration 4 weeks 3 Traffic Sign Erection Supervisor Goal (LTG) Pt will demonstrate donning and doffing gait belt through legs standing on right leg and then standing on left leg to improve balance with dressing by 04/10/2020. LTG Duration 4 weeks 2 Assisted Goal (LTG) Pt will gait train 2270 feet in 6 minutes to allow him to return to prior 3 mile walk in 42 minutes by 04/10/2020. LTG Duration 4 weeks 1 Assisted Goal (LTG) Pt will present with FGA score of at least 27/30 to reflect improved balance and decreased fall risk by 04/10/2020. LTG Duration 4 weeks Assessment Summary Assessment Re-ed pt to add flick to side step and side to side to improve fast twitch elbow and wrist muscles. Pt's gait is better and he is able to don his sweatshirt faster, doffing is also quicker. He con't with trouble with SLS. Physical Therapy Plan Frequency and Duration Frequency of Treatment 4x/Week Duration of Treatment 4 weeks Plan of Care Start Date 03/06/20 Plan of Care End Date 04/10/20 Therapeutic Interventions Therapeutic Interventions Balance Training,Coordination Training,Gait Training,Home Exercise Program,Neuromuscular Re-education,Patient/ Caregiver Education,Self-Care/ Home Management,Therapeutic Activities,Therapeutic Exercises Next Visit Focus/Plan Next Note Type Treatment Note Next Visit Plan Progress BIG walking, review all exercises and functional activities
--- NOTE | 2020-03-31 15:38 | PT.OTN ---
Current Diagnoses Parkinson's disease (03/31/20) Ataxia, unspecified (03/31/20) Physical Therapy Treatment Note PT-OP-A Visit Information Start: 03/06/20 14:03 Freq: Status: Active Protocol: Document 03/31/20 14:32 MB (Rec: 03/31/20 15:38 MB [id number]) Out-Patient Physical Therapy Visit Information Visit Information Visit Type Treatment Note Visit Start Time 14:32 Visit Stop Time 15:28 Total Visit Minutes 56 Visit Number 14 PT-OP-B Current Condition Start: 03/06/20 14:03 Freq: Status: Active Protocol: Document 03/06/20 14:08 MB (Rec: 03/06/20 15:09 MB [id number]) Current Condition History of Current Condition Onset Date 5-7 years Current Complaints Decreased ability to think through math problems, right UE tremor History of Current Condition Pt reports that the first sign of his PD was right hand tremor and difficulty with performing math in his head. 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 He has trouble sleeping and has trouble falling asleep d/t restless legs. It can take up to a couple of hours to fall asleep. PMH: Tremor right UE and pt is right-handed, prostate and colon CA, colon resection, gallbladder disease, carpal tunnel surgery His biggest problem is his voice. He works out with weights each day. He has 5 lb free weights. He can stand on his left foot to get on shorts but cannot stand on his right foot to get on shorts. He reports problems with his Ropininrole that he takes at night. He states that his legs get worse as far as aching after taking it. Pt drinks 2.5 cups of coffee a day, one beer and 60 oz of water. Pt denies falls. He is driving . He was up on ladders cleaning gutters but was told by doctor not to do so. He wonders about using a chain saw. There are two steps to enter to get into the house without a rail. Prior Treatments and Tests PT in the past and it was not very helpful Treatment Goals Patient/Caregiver Goals To be able to maintain function and normalcy. His voice is is biggest problem. He would like to get back to 3 mile course of walking in 42 minutes. He would like to get back to walking 2 miles on the beach. He would like to be able to stand on his right leg to put on shorts. Prior Functional Status Baseline Function- ADL's Independent Baseline Function- Mobility Independent Baseline Function- Gait I PT-OP-C Subjective Start: 03/06/20 14:03 Freq: Status: Active Protocol: Document 03/31/20 14:32 MB (Rec: 03/31/20 15:38 MB [id number]) OP-PT Subjective Patient Comments Patient Comments Pt states that he watched the BIG video and practiced flicks but not with the exercises. PT-OP-D Balance Start: 03/06/20 14:03 Freq: Status: Active Protocol: Document 03/06/20 14:08 MB (Rec: 03/06/20 15:38 MB [id number]) OP-PT Balance Assessment Sitting Balance Static Sitting Balance Ability Normal Dynamic Sitting Balance Ability Normal Standing Balance Static Standing Balance Ability Normal Dynamic Standing Balance Ability Normal Balance Tests Other Other Balance Tests Performed FGA score 25/30, indicating increased risk for falling 30 sec sit to stand without UE support: 15; two trials d/t pt not putting hips down on the mat with first trial Hamilton Fall Scale Copyright Permission PT-OP-G Mobility & Gait Start: 03/06/20 14:03 Freq: Status: Active Protocol: Document 03/06/20 14:08 MB (Rec: 03/06/20 15:38 MB [id number]) OP Gait Assessment Comments Gait Comments 6MWT 1626 feet. Pt has good gait speed, decreased arm swing and occ scuffing of lateral sides of feet. Decreased confidence with stairs without rail and pt takes time to adjust for descending steps PT-OP-J Posture/Palpation/Skin Start: 03/06/20 14:03 Freq: Status: Active Protocol: Document 03/06/20 14:08 MB (Rec: 03/06/20 15:39 MB [id number]) Posture Evaluation Comments Posture Comments Forward, flexed posture in sitting and standing PT-OP-M Strength Start: 03/06/20 14:03 Freq: Status: Active Protocol: Document 03/06/20 14:08 MB (Rec: 03/06/20 15:38 MB [id number]) Shoulder Strength Shoulder Manual Muscle Testing Left Flexion 5 Normal Right Flexion 5 Normal Elbow/Forearm Strength Elbow and Forearm Manual Muscle Testing Left Flexion (C6) 5 Normal Extension (C7) 5 Normal Right Flexion (C6) 5 Normal Extension (C7) 5 Normal Hip Strength Hip Manual Muscle Testing Left Flexion (L2) 5 Normal Right Flexion (L2) 5 Normal PT-OP-Q Treatments Start: 03/06/20 14:03 Freq: Status: Active Protocol: Document 03/31/20 14:32 MB (Rec: 03/31/20 15:38 MB [id number]) Therapeutic Exercises Sitting Exercises BIG sit to stand Comments Verbally reviewed today Side to side Side bilateral Reps/Minutes 8 Comments Flick x10 Floor to ceiling Reps/Minutes 8 Comments I Standing Exercises Sideways rock and reach Side bilateral Reps/Minutes 10 Comments Cues to pivot and keep arms up , tried alternating Forwards rock and reach Side bilateral Reps/Minutes 10 Comments Cues for big stance Backwards step and reach Side bilateral Reps/Minutes 10 Comments Cues for big step, tried alternating Sideways step and reach Side bilateral Reps/Minutes 10 Comments 1 flick each Forward step and reach Side bilateral Reps/Minutes 10 Comments Alternating, nice big step Therapeutic Activity Therapeutic Activity SLS Comments Cues to flex hip and knee to 90/90 and pt requires CGA, can only stand 5 sec Gait Training Gait Activity BIG walking Description BIG walking Level of Assistance Superv Surface Paved, steps, gravel, over curbs and covered pot holes and grass Distance/Duration 25' Treatment Focus Cues for big hand right and big arm swing Comments 2 lb weights on ankles all of gait, cues to make 90 deg right and left turns, big hand , less scuffing today, remembered two LOUD phrases to state with walking PT-OP-T Assessment and Plan Start: 03/06/20 14:03 Freq: Status: Active Protocol: Document 03/31/20 14:32 MB (Rec: 03/31/20 15:38 MB [id number]) Physical Therapy Assessment Rehab Potential Rehabilitation Potential Good Evaluation Complexity Number of Personal Factors/Comorbidities 1-2 Number of Body Systems Impaired 1-2 Clinical Presentation at Evaluation Evolving Impairments Impairments Balance,Coordination, Functional Activities,Gait, Posture,Soft Tissue Mobility Goals 5 Snf Goal (LTG) Pt will perform BIG exercises with appropriate amplitude and effort with I to improve posture and gait by 04/10/2020. LTG Duration 4 weeks 4 Snf Goal (LTG) Pt will perform 20 reps sit to stand without UE support in 30 sec to improve functional mobility and leg strength by . LTG Duration 4 weeks 3 Snf Goal (LTG) Pt will demonstrate donning and doffing gait belt through legs standing on right leg and then standing on left leg to improve balance with dressing by 04/10/2020. LTG Duration 4 weeks 2 Business Risk Analyst Goal (LTG) Pt will gait train 2270 feet in 6 minutes to allow him to return to prior 3 mile walk in 42 minutes by 04/10/2020. LTG Duration 4 weeks 1 Business Risk Analyst Goal (LTG) Pt will present with FGA score of at least 27/30 to reflect improved balance and decreased fall risk by 04/10/2020. LTG Duration 4 weeks Assessment Summary Assessment Ed pt to progress exercises at home in the following sequence 1) add flick on side sit and side step exercises, 2 ) add alternating to forward and backwards step and side rocking, 3) add 2 lb ankle weights. He con't with trouble with SLS. Physical Therapy Plan Frequency and Duration Frequency of Treatment 4x/Week Duration of Treatment 4 weeks Plan of Care Start Date 03/06/20 Plan of Care End Date 04/10/20 Therapeutic Interventions Therapeutic Interventions Balance Training,Coordination Training,Gait Training,Home Exercise Program,Neuromuscular Re-education,Patient/ Caregiver Education,Self-Care/ Home Management,Therapeutic Activities,Therapeutic Exercises Next Visit Focus/Plan Next Note Type Treatment Note Next Visit Plan Progress BIG walking, review all exercises and functional activities
--- NOTE | 2020-04-01 15:26 | PT.OTN ---
Current Diagnoses Parkinson's disease (04/01/20) Ataxia, unspecified (04/01/20) Physical Therapy Treatment Note PT-OP-A Visit Information Start: 03/06/20 14:03 Freq: Status: Active Protocol: Document 04/01/20 15:15 MB (Rec: 04/01/20 15:26 MB [id number]) Out-Patient Physical Therapy Visit Information Visit Information Visit Type Treatment Note Visit Note This is really treatment 14 of 16 with BIG and tomorrow will be 15. Evaluation was 1 visit per this EMR but not towards BIG course. Visit Start Time 14:15 Visit Stop Time 15:12 Total Visit Minutes 58 Visit Number 15 PT-OP-B Current Condition Start: 03/06/20 14:03 Freq: Status: Active Protocol: Document 03/06/20 14:08 MB (Rec: 03/06/20 15:09 MB [id number]) Current Condition History of Current Condition Onset Date 5-7 years Current Complaints Decreased ability to think through math problems, right UE tremor History of Current Condition Pt reports that the first sign of his PD was right hand tremor and difficulty with performing math in his head. 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 He has trouble sleeping and has trouble falling asleep d/t restless legs. It can take up to a couple of hours to fall asleep. PMH: Tremor right UE and pt is right-handed, prostate and colon CA, colon resection, gallbladder disease, carpal tunnel surgery His biggest problem is his voice. He works out with weights each day. He has 5 lb free weights. He can stand on his left foot to get on shorts but cannot stand on his right foot to get on shorts. He reports problems with his Ropininrole that he takes at night. He states that his legs get worse as far as aching after taking it. Pt drinks 2.5 cups of coffee a day, one beer and 60 oz of water. Pt denies falls. He is driving . He was up on ladders cleaning gutters but was told by doctor not to do so. He wonders about using a chain saw. There are two steps to enter to get into the house without a rail. Prior Treatments and Tests PT in the past and it was not very helpful Treatment Goals Patient/Caregiver Goals To be able to maintain function and normalcy. His voice is is biggest problem. He would like to get back to 3 mile course of walking in 42 minutes. He would like to get back to walking 2 miles on the beach. He would like to be able to stand on his right leg to put on shorts. Prior Functional Status Baseline Function- ADL's Independent Baseline Function- Mobility Independent Baseline Function- Gait I PT-OP-C Subjective Start: 03/06/20 14:03 Freq: Status: Active Protocol: Document 04/01/20 15:15 MB (Rec: 04/01/20 15:26 MB [id number]) OP-PT Subjective Patient Comments Patient Comments Pt states that he did all the exercises with Hina on the [employer] BIG homework video this morning. PT-OP-D Balance Start: 03/06/20 14:03 Freq: Status: Active Protocol: Document 03/06/20 14:08 MB (Rec: 03/06/20 15:38 MB [id number]) OP-PT Balance Assessment Sitting Balance Static Sitting Balance Ability Normal Dynamic Sitting Balance Ability Normal Standing Balance Static Standing Balance Ability Normal Dynamic Standing Balance Ability Normal Balance Tests Other Other Balance Tests Performed FGA score 25/30, indicating increased risk for falling 30 sec sit to stand without UE support: 15; two trials d/t pt not putting hips down on the mat with first trial Hamilton Fall Scale Copyright Permission PT-OP-G Mobility & Gait Start: 03/06/20 14:03 Freq: Status: Active Protocol: Document 03/06/20 14:08 MB (Rec: 03/06/20 15:38 MB [id number]) OP Gait Assessment Comments Gait Comments 6MWT 1626 feet. Pt has good gait speed, decreased arm swing and occ scuffing of lateral sides of feet. Decreased confidence with stairs without rail and pt takes time to adjust for descending steps PT-OP-J Posture/Palpation/Skin Start: 03/06/20 14:03 Freq: Status: Active Protocol: Document 03/06/20 14:08 MB (Rec: 03/06/20 15:39 MB [id number]) Posture Evaluation Comments Posture Comments Forward, flexed posture in sitting and standing PT-OP-M Strength Start: 03/06/20 14:03 Freq: Status: Active Protocol: Document 03/06/20 14:08 MB (Rec: 03/06/20 15:38 MB [id number]) Shoulder Strength Shoulder Manual Muscle Testing Left Flexion 5 Normal Right Flexion 5 Normal Elbow/Forearm Strength Elbow and Forearm Manual Muscle Testing Left Flexion (C6) 5 Normal Extension (C7) 5 Normal Right Flexion (C6) 5 Normal Extension (C7) 5 Normal Hip Strength Hip Manual Muscle Testing Left Flexion (L2) 5 Normal Right Flexion (L2) 5 Normal PT-OP-Q Treatments Start: 03/06/20 14:03 Freq: Status: Active Protocol: Document 04/01/20 15:15 MB (Rec: 04/01/20 15:26 MB [id number]) Therapeutic Exercises Sitting Exercises BIG sit to stand Sitting Exercise Name sit to stand Reps/Minutes 10 Comments cues to turn palms forward again Side to side Side bilateral Reps/Minutes 10 Comments Flick x10 each rep, demo and cues for form Floor to ceiling Reps/Minutes 10 Comments I Standing Exercises Sideways rock and reach Side bilateral Reps/Minutes 10 Comments Cues for big stance Forwards rock and reach Side bilateral Reps/Minutes 10 Comments I Backwards step and reach Side bilateral Reps/Minutes 10 Comments Pt cannot perform alternating Sideways step and reach Side bilateral Reps/Minutes 10 Comments 1 flick each and cues for form Forward step and reach Side bilateral Reps/Minutes 10 Comments Alternating Therapeutic Activity Therapeutic Activity Bend down to pull up fake pants Comments 20 sec to pull up gait belt and this requires SLS on each foot Hip flexion march to prepare for donning shorts while standing on one leg Comments 10 reps bilaterally with cues for slowing down and left index finger for support SLS Comments Cues for 90/90 hip flexion and knee flexion. SLS R 13 sec and left 8 sec Gait Training Gait Activity BIG walking Description BIG walking Level of Assistance Superv Surface Paved, steps, gravel, over curbs and covered pot holes and grass Distance/Duration 20' Treatment Focus Cues for big hand right and big arm swing Comments 2 lb weights on ankles all of cognitive tasks: pt recalls 5 LOUD statements and then lists all numbers minus 7 starting from 100 and then lists animals starting with each letter of the alphabet PT-OP-T Assessment and Plan Start: 03/06/20 14:03 Freq: Status: Active Protocol: Document 04/01/20 15:15 MB (Rec: 04/01/20 15:26 MB [id number]) Physical Therapy Assessment Rehab Potential Rehabilitation Potential Good Evaluation Complexity Number of Personal Factors/Comorbidities 1-2 Number of Body Systems Impaired 1-2 Clinical Presentation at Evaluation Evolving Impairments Impairments Balance,Coordination, Functional Activities,Gait, Posture,Soft Tissue Mobility Goals 5 Group Home Goal (LTG) Pt will perform BIG exercises with appropriate amplitude and effort with I to improve posture and gait by 04/10/2020. LTG Duration 4 weeks 4 Tile Power Shear Operator Goal (LTG) Pt will perform 20 reps sit to stand without UE support in 30 sec to improve functional mobility and leg strength by . LTG Duration 4 weeks 3 Tile Power Shear Operator Goal (LTG) Pt will demonstrate donning and doffing gait belt through legs standing on right leg and then standing on left leg to improve balance with dressing by 04/10/2020. LTG Duration 4 weeks 2 Tile Power Shear Operator Goal (LTG) Pt will gait train 2270 feet in 6 minutes to allow him to return to prior 3 mile walk in 42 minutes by 04/10/2020. LTG Duration 4 weeks 1 Group Home Goal (LTG) Pt will present with FGA score of at least 27/30 to reflect improved balance and decreased fall risk by 04/10/2020. LTG Duration 4 weeks Assessment Summary Assessment Added cognitive task with big gait with 2 lb weights is challenging today and cues for big right hand and big foot clearance. He con't to have trouble with sit to stand exercise, reaching back with standing. Physical Therapy Plan Frequency and Duration Frequency of Treatment 4x/Week Duration of Treatment 4 weeks Plan of Care Start Date 03/06/20 Plan of Care End Date 04/10/20 Therapeutic Interventions Therapeutic Interventions Balance Training,Coordination Training,Gait Training,Home Exercise Program,Neuromuscular Re-education,Patient/ Caregiver Education,Self-Care/ Home Management,Therapeutic Activities,Therapeutic Exercises Next Visit Focus/Plan Next Note Type Treatment Note Next Visit Plan Progress BIG walking, review all exercises and functional activities
--- NOTE | 2020-04-02 15:31 | PT.OTN ---
Current Diagnoses Parkinson's disease (04/02/20) Ataxia, unspecified (04/02/20) Physical Therapy Treatment Note PT-OP-A Visit Information Start: 03/06/20 14:03 Freq: Status: Active Protocol: Document 04/02/20 15:18 AW (Rec: 04/02/20 15:30 AW [email or web address]) Out-Patient Physical Therapy Visit Information Visit Information Visit Type Treatment Note Visit Start Time 14:15 Visit Stop Time 15:14 Total Visit Minutes 59 Visit Number 16 PT-OP-B Current Condition Start: 03/06/20 14:03 Freq: Status: Active Protocol: Document 03/06/20 14:08 MB (Rec: 03/06/20 15:09 MB [id number]) Current Condition History of Current Condition Onset Date 5-7 years Current Complaints Decreased ability to think through math problems, right UE tremor History of Current Condition Pt reports that the first sign of his PD was right hand tremor and difficulty with performing math in his head. 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 He has trouble sleeping and has trouble falling asleep d/t restless legs. It can take up to a couple of hours to fall asleep. PMH: Tremor right UE and pt is right-handed, prostate and colon CA, colon resection, gallbladder disease, carpal tunnel surgery His biggest problem is his voice. He works out with weights each day. He has 5 lb free weights. He can stand on his left foot to get on shorts but cannot stand on his right foot to get on shorts. He reports problems with his Ropininrole that he takes at night. He states that his legs get worse as far as aching after taking it. Pt drinks 2.5 cups of coffee a day, one beer and 60 oz of water. Pt denies falls. He is driving . He was up on ladders cleaning gutters but was told by doctor not to do so. He wonders about using a chain saw. There are two steps to enter to get into the house without a rail. Prior Treatments and Tests PT in the past and it was not very helpful Treatment Goals Patient/Caregiver Goals To be able to maintain function and normalcy. His voice is is biggest problem. He would like to get back to 3 mile course of walking in 42 minutes. He would like to get back to walking 2 [place] the [place]. He would like to be able to stand on his right leg to put on shorts. Prior Functional Status Baseline Function- ADL's Independent Baseline Function- Mobility Independent Baseline Function- Gait I PT-OP-C Subjective Start: 03/06/20 14:03 Freq: Status: Active Protocol: Document 04/02/20 15:18 AW (Rec: 04/02/20 15:30 AW [email or web address]) OP-PT Subjective Patient Comments Patient Comments Pt has been keeping up with exercises and homework. Happy to be here. PT-OP-D Balance Start: 03/06/20 14:03 Freq: Status: Active Protocol: Document 03/06/20 14:08 MB (Rec: 03/06/20 15:38 MB [id number]) OP-PT Balance Assessment Sitting Balance Static Sitting Balance Ability Normal Dynamic Sitting Balance Ability Normal Standing Balance Static Standing Balance Ability Normal Dynamic Standing Balance Ability Normal Balance Tests Other Other Balance Tests Performed FGA score 25/30, indicating increased risk for falling 30 sec sit to stand without UE support: 15; two trials d/t pt not putting hips down on the mat with first trial Hamilton Fall Scale Copyright Permission PT-OP-G Mobility & Gait Start: 03/06/20 14:03 Freq: Status: Active Protocol: Document 03/06/20 14:08 MB (Rec: 03/06/20 15:38 MB [id number]) OP Gait Assessment Comments Gait Comments 6MWT 1626 feet. Pt has good gait speed, decreased arm swing and occ scuffing of lateral sides of feet. Decreased confidence with stairs without rail and pt takes time to adjust for descending steps PT-OP-J Posture/Palpation/Skin Start: 03/06/20 14:03 Freq: Status: Active Protocol: Document 03/06/20 14:08 MB (Rec: 03/06/20 15:39 MB [id number]) Posture Evaluation Comments Posture Comments Forward, flexed posture in sitting and standing PT-OP-M Strength Start: 03/06/20 14:03 Freq: Status: Active Protocol: Document 03/06/20 14:08 MB (Rec: 03/06/20 15:38 MB [id number]) Shoulder Strength Shoulder Manual Muscle Testing Left Flexion 5 Normal Right Flexion 5 Normal Elbow/Forearm Strength Elbow and Forearm Manual Muscle Testing Left Flexion (C6) 5 Normal Extension (C7) 5 Normal Right Flexion (C6) 5 Normal Extension (C7) 5 Normal Hip Strength Hip Manual Muscle Testing Left Flexion (L2) 5 Normal Right Flexion (L2) 5 Normal PT-OP-Q Treatments Start: 03/06/20 14:03 Freq: Status: Active Protocol: Document 04/02/20 15:18 AW (Rec: 04/02/20 15:30 AW [email or web address]) Gym Equipment Shuttle Balance 1 Details blue chains Reps/Duration 5 min Comments NBOS, SLS with and without exaggerated hip flexion Therapeutic Exercises Sitting Exercises BIG sit to stand Sitting Exercise Name sit to stand Equipment Used 16 block, end of treadmill Reps/Minutes 8 x 2 (+2 from end of treadmill) Comments minimal cueing for bigger forward lean Side to side Side bilateral Reps/Minutes 10 Comments pt taught exercise today Floor to ceiling Equipment Used standard height chair Reps/Minutes 10 Comments pt taught exercise today Standing Exercises Sideways rock and reach Standing Exercise Name on blue gym mat Side bilateral Reps/Minutes 10 Comments pt taught and sequenced Forwards rock and reach Standing Exercise Name on blue gym mat Side bilateral Reps/Minutes 10 Comments pt taught and sequenced; cues for slower rock, bigger reach Backwards step and reach Standing Exercise Name on blue gym mat Side bilateral Reps/Minutes 10 Comments pt taught and sequenced Sideways step and reach Standing Exercise Name on blue gym mat Side bilateral Reps/Minutes 10 Comments pt taught and sequenced Forward step and reach Standing Exercise Name on blue gym mat Side bilateral Reps/Minutes 10 Comments pt taught and sequenced Other Exercises SLS Other Exercise Name SLS Side bilateral Equipment Used 2 foam, // bars Reps/Minutes 5 min Comments alternating up to 15 sec each Gait Training Gait Activity BIG walking Description BIG walking Level of Assistance Superv Surface Paved, steps, gravel, over curbs and covered pot holes and grass Distance/Duration 20' Treatment Focus Cues for big hand right and big arm swing Comments pt able to maintain arm swing with conversational distraction and increased cognitive load. Focused today on heel strike to eliminate foot scuff with pt able to decrease scuffing from 1/4 of steps to 1/10 of steps PT-OP-T Assessment and Plan Start: 03/06/20 14:03 Freq: Status: Active Protocol: Document 04/02/20 15:18 AW (Rec: 04/02/20 15:30 AW [email or web address]) Physical Therapy Assessment Rehab Potential Rehabilitation Potential Good Evaluation Complexity Number of Personal Factors/Comorbidities 1-2 Number of Body Systems Impaired 1-2 Clinical Presentation at Evaluation Evolving Impairments Impairments Balance,Coordination, Functional Activities,Gait, Posture,Soft Tissue Mobility Goals 5 Rnfa Goal (LTG) Pt will perform BIG exercises with appropriate amplitude and effort with I to improve posture and gait by 04/10/2020. LTG Duration 4 weeks 4 Fdc Goal (LTG) Pt will perform 20 reps sit to stand without UE support in 30 sec to improve functional mobility and leg strength by . LTG Duration 4 weeks 3 Fdc Goal (LTG) Pt will demonstrate donning and doffing gait belt through legs standing on right leg and then standing on left leg to improve balance with dressing by 04/10/2020. LTG Duration 4 weeks 2 Rnfa Goal (LTG) Pt will gait train 2270 feet in 6 minutes to allow him to return to prior 3 mile walk in 42 minutes by 04/10/2020. LTG Duration 4 weeks 1 Rnfa Goal (LTG) Pt will present with FGA score of at least 27/30 to reflect improved balance and decreased fall risk by 04/10/2020. LTG Duration 4 weeks Assessment Summary Assessment Pt has good carryover on sit to stand from different height surfaces. Pt taught all exercises with only minimal need for verbal or demo cues. Focused on heel strike during BIG walking to eliminate foot scuff with reduction noted from 1/4 of steps to 1/10 of steps or less. Physical Therapy Plan Frequency and Duration Frequency of Treatment 4x/Week Duration of Treatment 4 weeks Plan of Care Start Date 03/06/20 Plan of Care End Date 04/10/20 Therapeutic Interventions Therapeutic Interventions Balance Training,Coordination Training,Gait Training,Home Exercise Program,Neuromuscular Re-education,Patient/ Caregiver Education,Self-Care/ Home Management,Therapeutic Activities,Therapeutic Exercises Next Visit Focus/Plan Next Note Type Treatment Note Next Visit Plan wrap up; assess goals
--- NOTE | 2020-04-03 15:39 | PT.OTN ---
Current Diagnoses Parkinson's disease (04/03/20) Ataxia, unspecified (04/03/20) Physical Therapy Treatment Note PT-OP-A Visit Information Start: 03/06/20 14:03 Freq: Status: Active Protocol: Document 04/03/20 14:17 MB (Rec: 04/03/20 15:28 MB [id number]) Out-Patient Physical Therapy Visit Information Visit Information Visit Type Discharge Summary Visit Start Time 14:17 Visit Stop Time 15:15 Total Visit Minutes 58 Visit Number 17 PT-OP-B Current Condition Start: 03/06/20 14:03 Freq: Status: Active Protocol: Document 03/06/20 14:08 MB (Rec: 03/06/20 15:09 MB [id number]) Current Condition History of Current Condition Onset Date 5-7 years Current Complaints Decreased ability to think through math problems, right UE tremor History of Current Condition Pt reports that the first sign of his PD was right hand tremor and difficulty with performing math in his head. 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 He has trouble sleeping and has trouble falling asleep d/t restless legs. It can take up to a couple of hours to fall asleep. PMH: Tremor right UE and pt is right-handed, prostate and colon CA, colon resection, gallbladder disease, carpal tunnel surgery His biggest problem is his voice. He works out with weights each day. He has 5 lb free weights. He can stand on his left foot to get on shorts but cannot stand on his right foot to get on shorts. He reports problems with his Ropininrole that he takes at night. He states that his legs get worse as far as aching after taking it. Pt drinks 2.5 cups of coffee a day, one beer and 60 oz of water. Pt denies falls. He is driving . He was up on ladders cleaning gutters but was told by doctor not to do so. He wonders about using a chain saw. There are two steps to enter to get into the house without a rail. Prior Treatments and Tests PT in the past and it was not very helpful Treatment Goals Patient/Caregiver Goals To be able to maintain function and normalcy. His voice is is biggest problem. He would like to get back to 3 mile course of walking in 42 minutes. He would like to get back to [place] He would like to be able to stand on his right leg to put on shorts. Prior Functional Status Baseline Function- ADL's Independent Baseline Function- Mobility Independent Baseline Function- Gait I PT-OP-C Subjective Start: 03/06/20 14:03 Freq: Status: Active Protocol: Document 04/03/20 14:17 MB (Rec: 04/03/20 15:31 MB [id number]) OP-PT Subjective Patient Comments Patient Comments Pt states that he is doing well. He has some questions before discharge. Amy, significant other, arrives to attend last treatment. Patient Reported Progress Improving PT-OP-D Balance Start: 03/06/20 14:03 Freq: Status: Active Protocol: Document 03/06/20 14:08 MB (Rec: 03/06/20 15:38 MB [id number]) OP-PT Balance Assessment Sitting Balance Static Sitting Balance Ability Normal Dynamic Sitting Balance Ability Normal Standing Balance Static Standing Balance Ability Normal Dynamic Standing Balance Ability Normal Balance Tests Other Other Balance Tests Performed FGA score 25/30, indicating increased risk for falling 30 sec sit to stand without UE support: 15; two trials d/t pt not putting hips down on the mat with first trial Hamilton Fall Scale Copyright Permission PT-OP-G Mobility & Gait Start: 03/06/20 14:03 Freq: Status: Active Protocol: Document 03/06/20 14:08 MB (Rec: 03/06/20 15:38 MB [id number]) OP Gait Assessment Comments Gait Comments 6MWT 1626 feet. Pt has good gait speed, decreased arm swing and occ scuffing of lateral sides of feet. Decreased confidence with stairs without rail and pt takes time to adjust for descending steps PT-OP-J Posture/Palpation/Skin Start: 03/06/20 14:03 Freq: Status: Active Protocol: Document 03/06/20 14:08 MB (Rec: 03/06/20 15:39 MB [id number]) Posture Evaluation Comments Posture Comments Forward, flexed posture in sitting and standing PT-OP-M Strength Start: 03/06/20 14:03 Freq: Status: Active Protocol: Document 03/06/20 14:08 MB (Rec: 03/06/20 15:38 MB [id number]) Shoulder Strength Shoulder Manual Muscle Testing Left Flexion 5 Normal Right Flexion 5 Normal Elbow/Forearm Strength Elbow and Forearm Manual Muscle Testing Left Flexion (C6) 5 Normal Extension (C7) 5 Normal Right Flexion (C6) 5 Normal Extension (C7) 5 Normal Hip Strength Hip Manual Muscle Testing Left Flexion (L2) 5 Normal Right Flexion (L2) 5 Normal PT-OP-Q Treatments Start: 03/06/20 14:03 Freq: Status: Active Protocol: Document 04/03/20 14:17 MB (Rec: 04/03/20 15:32 MB [id number]) Therapeutic Exercises Other Exercises Reviewed all BIG exercises and answered questions Side bilateral Comments Reviewed all exercises by demo , handouts, re-red to add flicks, alt, weight Gait Training Gait Activity 6MWT Comments 2089 feet in 6 minutes Ongoing BIG gait practice and ed Neuro Re-Education Treatment Other Activities SLS Comments See findings under goals, ed to fully flex the leg that is up, also practiced donning the gait belt up, mimicing donning shorts FGA Comments Score 27/30 with most difficulty with tandem walking Self-Care/Home Management Treatment Education Other Education Ed pt and Amy in [employer] [facility] [employer], cues to talk LOUD, BIG right hand and toes with gait and exercises, benefits of BIG walking over jogging, progression of exercises PT-OP-T Assessment and Plan Start: 03/06/20 14:03 Freq: Status: Active Protocol: Document 04/03/20 14:17 MB (Rec: 04/03/20 15:28 MB [id number]) Physical Therapy Assessment Goals 5 Coding Compliance Specialist Goal (LTG) Pt will perform BIG exercises with appropriate amplitude and effort with I to improve posture and gait by 04/10/2020. 04/03/2020: Pt demonstrates proper sit to stand without cues, ed pt on flicks, three advancements: flicks, alternating, ankle weights LTG Duration 4 weeks 4 Coding Compliance Specialist Goal (LTG) Pt will perform 20 reps sit to stand without UE support in 30 sec to improve functional mobility and leg strength by . 04/03/2020: 14 reps in 30 sec LTG Duration 4 weeks 3 Coding Compliance Specialist Goal (LTG) Pt will demonstrate donning and doffing gait belt through legs standing on right leg and then standing on left leg to improve balance with dressing by 04/10/2020. 04/03/2020: 29 sec and pt has shoes on and they are bigger than donning clothes at home SLS: Right leg 9 sec; 13 sec LTG Duration 4 weeks 2 Coding Compliance Specialist Goal (LTG) Pt will gait train 2270 feet in 6 minutes to allow him to return to prior 3 mile walk in 42 minutes by 04/10/2020. 04/03/2020: Pt gait trains 2089 ft in 6 minutes LTG Duration 4 weeks 1 Coding Compliance Specialist Goal (LTG) Pt will present with FGA score of at least 27/30 to reflect improved balance and decreased fall risk by 04/10/2020. 04/03/2020: FGA score is 27/30 with most trouble with tandem gait LTG Duration 4 weeks Assessment Summary Assessment Pt has done very well with BIG protocol. His gait speed is much improved, greater than 400 feet in 6 minutes, his gait quality with big steps and big right hand is better and he is improving and compliant with big exercises. His balance is improving and he will con't with single leg stance exercise, focusing on form of leg that is up. Ed pt and Amy, significant other, in benefits of [employer] [facility] [employer] and follow-up with this PT as needed in the future. Will d/c PT.
== END 2020-04-09 13:52 ==
LOC: PHYS 14:15
PROVIDERS: PCP Family Medicine; Referring Provider Psychiatry & Neurology Neurology; Visit Provider Psychiatry & Neurology Neurology
DX: G20 Parkinson's disease (principal); R27.0 Ataxia, unspecified
CPT/HCPCS: 97110; 97112; 97116; 97162; 97530; 97535

== ENCOUNTER → 2021-03-20 11:02 | Outpatient (CLI) | payer MEDICARE, SELFPAY ==
--- NOTE | 2021-03-20 | DI.RAD.S_ITS ---
PROCEDURE: FL BARIUM SWALLOW W AIR COMPARISON: None. INDICATIONS: Dysphagia, unspecified FINDINGS: There is esophageal dysmotility. No stricture identified. There is normal passage of a calibrated barium tablet. No mucosal abnormality seen. No hiatal hernia was identified. IMPRESSION: Esophageal dysmotility. Dictated by: Keenan Bryson M.D. on 03/20/2021 at 12:53 Approved by: Keenan Bryson M.D. on 03/20/2021 at 12:57
== END ==
PROVIDERS: PCP Family Medicine; Referring Provider Psychiatry & Neurology Neurology; Visit Provider Psychiatry & Neurology Neurology
DX: R13.10 Dysphagia, unspecified (principal); K22.4 Dyskinesia of esophagus
CPT/HCPCS: 74221